=== PATIENT | female | born 1950 | race Caucasian/White ===

== ENCOUNTER → 2016-10-19 | Outpatient (CLI) | payer MEDICARE, OTHER | LOC: RAD 10:41 | PROVIDERS: ATTEND Student in an Organized Health Care Education/Training Program | DX: M10.4 Other secondary gout (principal); M10.441 Other secondary gout, right hand ==

== ENCOUNTER 2017-01-17 08:04 | Emergency (ER) | payer MEDICARE, OTHER ==
[2017-01-17] MEDS ORDERED: NORMAL SALINE 1000 ML 1,000 ML IV ONE ×3 (08:42→13:44)
[2017-01-17] MEDS ORDERED: PANTOPRAZOLE SODIUM 40 MG VIAL IV ONE ×2 (08:43→09:51)
[2017-01-17 09:32] LABS: HEMOGLOBIN 10.5 g/dL (12.0-15.5); HGB HCT DIFFERENCE -1.5; MEAN CORPUSCULAR HEMOGLOBIN 29.7 pg (27.0-33.4); MEAN CORPUSCULAR HGB CONC 31.8 g/dL (32.0-36.0); MEAN CORPUSCULAR VOLUME 94 fl (80-97); RED BLOOD COUNT 3.53 10^6/uL (3.72-5.28); RED CELL DISTRIBUTION WIDTH 15.9 % (11.5-14.0); WHITE BLOOD COUNT 23.9 10^3/uL (4.0-10.5)
[2017-01-17 09:35] LABS: PROTHROMBIN TIME 13.5 SEC (11.4-15.4)
[2017-01-17 09:36] LABS: PARTIAL THROMBOPLASTIN TIME 27.5 SEC (23.5-35.8)
[2017-01-17 09:47] LABS: ALANINE AMINOTRANSFERASE 21 U/L (9-52); ALKALINE PHOSPHATASE 38 U/L (38-126); ANION GAP 15 (5-19); ASPARTATE AMINO TRANSFERASE 16 U/L (14-36); BILIRUBIN,DIRECT 0.4 mg/dL (0.0-0.4); BILIRUBIN,TOTAL 0.5 mg/dL (0.2-1.3); BLOOD UREA NITROGEN 86 mg/dL (7-20); CALCIUM 9.4 mg/dL (8.4-10.2); CARBON DIOXIDE 20 mmol/L (22-30); CHLORIDE 110 mmol/L (98-107); CREATININE RESULT 1.32 mg/dL (0.52-1.25); GLUCOSE 101 mg/dL (75-110); POTASSIUM 4.8 mmol/L (3.6-5.0); SODIUM 145.1 mmol/L (137-145); TOTAL PROTEIN 7.5 g/dL (6.3-8.2)
[2017-01-17 10:04] LABS: BAND NEUTROPHILS % (MANUAL) 1 % (3-5); BASOPHILS % (MANUAL) 0 % (0-2); EOSINOPHILS % (MANUAL) 0 % (0-6); LYMPHOCYTES % (MANUAL) 8 % (13-45); TOTAL CELLS COUNTED 100
[2017-01-17 10:05] LABS: ANISOCYTOSIS SLIGHT; TOXIC GRANULATION SLIGHT; TOXIC VACUOLATION PRESENT
[2017-01-17] MEDS ORDERED: ERTAPENEM SODIUM INJ 1 GM VIAL IV ONE (10:20)
--- NOTE | 2017-01-17 11:24 | RADIOLOGY REPORT (SQ) ---
EXAM DESCRIPTION: CT ABD/PELVIS WITH IV ONLY COMPLETED DATE/TIME: 01/17/2017 11:09 am REASON FOR STUDY: gi bleed COMPARISON: None. TECHNIQUE: CT scan of the abdomen and pelvis performed using helical scanning technique with dynamic intravenous contrast injection. No oral contrast. Images reviewed with lung, soft tissue, and bone windows. Reconstructed coronal and sagittal MPR images reviewed. Delayed images for evaluation of the urinary system also acquired. All images stored on PACS. All CT scanners at this facility use dose modulation, iterative reconstruction, and/or weight based d osing when appropriate to reduce radiation dose to as low as reasonably achievable (ALARA). [facility]: Dose Right [facility]: CareDose [facility]: Dose Right [facility]: Teradose 4D [facility]: in2apps CONTRAST TYPE AND DOSE: contrast/concentration: Isovue 370.00 mg/ml; Total Contrast Delivered: 100.0 ml; Total Saline Delivered: 72.0 ml RENAL FUNCTION: Creatinine 1.3 RADIATION DOSE: Up-to-date CT equipment and radiation dose reduction techniques were employed. CTDIv ol: 18.7 - 20.2 mGy. DLP: 2225 mGy-cm.. LIMITATIONS: None. FINDINGS: LOWER CHEST: No significant findings. No nodules or infiltrates. LIVER: Probable tiny subcentimeter cysts. No worrisome lesion. SPLEEN: Normal size. No focal lesions. PANCREAS: No masses. No significant calcifications. No adjacent inflammation or peripancreatic fluid collections. Pancreatic duct not dilated. GALLBLADDER: No identified stones by CT criteria. No inflammatory changes to suggest cholecystitis. ADRENAL GLANDS: No significant masses or asymmetry. RIGHT KIDNEY AND URETER: No solid masses. No significant calcification. No hydronephrosis or hydroure ter. LEFT KIDNEY AND URETER: No solid masses. No significant calcification. No hydronephrosis or hydrouret er. AORTA AND VESSELS: Atherosclerotic without aneurysm. No gross arterial occlusion or venous clot evid ent. RETROPERITONEUM: No retroperitoneal adenopathy, hemorrhage or masses. BOWEL AND PERITONEAL CAVITY: Minimal diverticulosis without active diverticulitis. No dilated loops or abnormal bowel wall thickening. No gross suggestion of active extravasated in contrast into bowel lumen as assessed. APPENDIX: Normal. PELVIS: No mass or free fluid. Normal bladder. ABDOMINAL WALL: No masses. No hernias. BONES: No significant or acute findings. OTHER: No other significant finding. IMPRESSION: 1. No acute or suspicious abdominopelvic abnormality. TECHNICAL DOCUMENTATION: JOB ID: [id number] Quality ID # [id number]: Final reports with documentation of one or more dose reduction techniques (e.g., Au tomated exposure control, adjustment of the mA and/or kV according to patient size, use of iterative reconstruction technique) 2010 [employer]- All Rights Reserved
--- NOTE | 2017-01-17 12:44 | ER Document Report ---
ED General - General Chief Complaint: Black/Tarry Stools Stated Complaint: DARK STOOLS Time Seen by Provider: 01/17/17 08:42 TRAVEL OUTSIDE OF THE [place] IN LAST 30 DAYS: No - HPI Patient complains to provider of: Black stool Notes: Patient coming in for evaluation of black stool. Patient has no history of GI bleed states 3 stools throughout the night that were all black. Patient denies any fevers chills nausea vomiting weakness dizziness patient able ambulate without difficulty. Patient is on medication for her chronic arthralgias hip pain. Denies any alcohol abuse denies any history of GI pathology in the past. - Related Data Allergies/Adverse Reactions: Tetanus Vaccines and Toxoid Allergy (Unknown, Verified 01/17/17 10:29) Penicillins Allergy (Verified 01/17/17 10:28) Past Medical History - Social History Smoking Status: Unknown if Ever Smoked Family History: Reviewed & Not Pertinent Patient has suicidal ideation: No Patient has homicidal ideation: No - Past Medical History Cardiac Medical History: Reports: Hx Hypercholesterolemia, Hx Hypertension Renal/ Medical History: Denies: Hx Peritoneal Dialysis Malignancy Medical History: Reports: Hx Skin Cancer Musculoskeltal Medical History: Reports Hx Musculoskeletal Trauma Past Surgical History: Reports: Hx Orthopedic Surgery Review of Systems - Review of Systems Constitutional: No symptoms reported EENT: No symptoms reported Cardiovascular: No symptoms reported Respiratory: No symptoms reported Gastrointestinal: Black stools Genitourinary: No symptoms reported Female Genitourinary: No symptoms reported Musculoskeletal: No symptoms reported Skin: No symptoms reported Hematologic/Lymphatic: No symptoms reported Neurological/Psychological: No symptoms reported -: Yes All other systems reviewed and negative Physical Exam - Vital signs Vitals: Temp Pulse Resp BP Pulse Ox 98.1 F 122 H 21 H 115/57 L 96 01/17/17 08:08 01/17/17 08:08 01/17/17 08:08 01/17/17 08:08 01/17/17 08:08 Interpretation: Tachycardic - General General appearance: Appears well, Alert - HEENT Head: Normocephalic, Atraumatic Eyes: Normal Pupils: PERRL - Respiratory Respiratory status: No respiratory distress Chest status: Nontender Breath sounds: Normal Chest palpation: Normal - Cardiovascular Rhythm: Regular Heart sounds: Normal auscultation Murmur: No - Abdominal Inspection: Normal Distension: No distension Bowel sounds: Normal Tenderness: Nontender Organomegaly: No organomegaly - Rectal Stool: Heme positive, Black - Slightly maroon Hemorrhoids: External - Back Back: Normal, Nontender - Extremities General upper extremity: Normal inspection, Nontender, Normal color, Normal ROM , Normal temperature General lower extremity: Normal inspection, Nontender, Normal color, Normal ROM , Normal temperature, Normal weight bearing. No: Washington's sign - Neurological Neuro grossly intact: Yes Cognition: Normal Orientation: AAOx4 Vikram Coma Scale Eye Opening: Spontaneous Vikram Coma Scale Verbal: Oriented Vikram Coma Scale Motor: Obeys Commands Brimson Coma Scale Total: 15 Speech: Normal Motor strength normal: LUE, RUE, LLE, RLE Sensory: Normal - Psychological Associated symptoms: Normal affect, Normal mood - Skin Skin Temperature: Warm Skin Moisture: Dry Skin Color: Normal Course - Re-evaluation Re-evalutation: 01/17/17 12:52 Patient lab work shows leukocytosis with left shift and bandemia. Patient abdomen is benign no tenderness but went ahead with a CT scan showing no acute abdominal pathology. Currently waiting on urinalysis patient was given a dose of antibiotics for coverage. Lactic acid is negative. Patient does have elevated BUN and creatinine. More consistent with a GI bleed. Did discuss with Dr. Bon roman. Patient was accepted in transfer due to GI bleed. 01/17/17 13:31 Patient with tachycardia still otherwise stable for transport - Vital Signs Vital signs: Temp Pulse Resp BP Pulse Ox 98.1 F 122 H 17 131/73 H 97 01/17/17 08:08 01/17/17 08:08 01/17/17 13:10 01/17/17 13:10 01/17/17 13:10 - Laboratory Result Diagrams: 01/17/17 12:10 01/17/17 09:12 Laboratory results interpreted by me: 01/17/17 01/17/17 01/17/17 09:12 09:12 12:10 WBC 23.9 H 20.4 H RBC 3.53 L 3.39 L Hgb 10.5 L 10.1 L Hct 33.0 L 31.6 L MCHC 31.8 L 31.9 L RDW 15.9 H 15.8 H Seg Neuts % (Manual) 87 H Band Neutrophils % 1 L Lymphocytes % (Manual) 8 L Abs Neuts (Manual) 21.0 H Sodium 145.1 H Chloride 110 H Carbon Dioxide 20 L BUN 86 H Creatinine 1.32 H Est GFR ( Amer) 48 L Est GFR (Non-Af Amer) 40 L Critical Care Note - Critical Care Note Total time excluding time spent on procedures (mins): 35 Comments: Multiple evaluation patient with tachycardia and GI bleed. Discharge - Discharge Clinical Impression: GI bleed Qualifiers: GI bleed type/associated pathology: unspecified gastrointestinal hemorrhage type Qualified Code(s): K92.2 - Gastrointestinal hemorrhage, unspecified Condition: Good Referrals: MAY NEWTON DO [Primary Care Provider] - Follow up as needed
[2017-01-17] MEDS ORDERED: LEVOFLOXACIN 500 MG/D5W RTU 100 ML IV ONE (13:01)
[2017-01-17 13:10] LABS: HEMATOCRIT 31.6 % (36.0-47.0); HEMOGLOBIN 10.1 g/dL (12.0-15.5); HGB HCT DIFFERENCE -1.3; MEAN CORPUSCULAR HEMOGLOBIN 29.7 pg (27.0-33.4); MEAN CORPUSCULAR HGB CONC 31.9 g/dL (32.0-36.0); MEAN CORPUSCULAR VOLUME 93 fl (80-97); RED BLOOD COUNT 3.39 10^6/uL (3.72-5.28); RED CELL DISTRIBUTION WIDTH 15.8 % (11.5-14.0); WHITE BLOOD COUNT 20.4 10^3/uL (4.0-10.5)
[2017-01-17 13:29] VITALS: BP 131/73
[2017-01-17 13:34] LABS: ANISOCYTOSIS SLIGHT; BAND NEUTROPHILS % (MANUAL) 1 % (3-5); BASOPHILS % (MANUAL) 0 % (0-2); EOSINOPHILS % (MANUAL) 0 % (0-6); HYPOCHROMASIA 1+; LYMPHOCYTES % (MANUAL) 16 % (13-45); OVALOCYTES SLIGHT; POIKILOCYTOSIS SLIGHT; POLYCHROMASIA SLIGHT; TOTAL CELLS COUNTED 100; TOXIC GRANULATION SLIGHT; TOXIC VACUOLATION PRESENT
[2017-01-17] MEDS ORDERED: DEXTROSE 5%-NORMAL SALINE 1,000 ML IV ONE (13:43)
== END 2017-01-17 13:05 | disposition short-term general hospital (02) ==
LOC: ER 08:04
DX: K92.2 Gastrointestinal hemorrhage, unspecified (principal); R00.0 Tachycardia, unspecified; D72.825 Bandemia; K64.4 Residual hemorrhoidal skin tags; I10 Essential (primary) hypertension; M25.559 Pain in unspecified hip; G89.29 Other chronic pain; Z79.899 Other long term (current) drug therapy; Z88.7 Allergy status to serum and vaccine; Z88.0 Allergy status to penicillin; Z85.828 Personal history of other malignant neoplasm of skin
CPT/HCPCS: 96376; 99291; 96361; 96374; 96375; 86900; 86901; 36415; 87040; 86850; 83605; 83690; 85025; 85610; 85730; 82272; 80053; 74177; J1956; C9113; J7030; S0164

== ENCOUNTER → 2017-12-20 | Outpatient (CLI) | payer MEDICARE, OTHER ==
--- NOTE | 2017-12-20 16:21 | XCELERA REPORT ---
[address] [address] Lower Extremity Venous Evaluation Name: ONI ELISE Age: 67 yrs Gender: Female : 1950 Patient Status: Outpatient Patient Location: Study Date: 12/20/2017 01:30 PM Procedure: Color flow and duplex imaging bilaterally of the veins of the lower extremities as well as the Common Femoral veins. Reason For Study: BLE PAIN/SWELLING Ordering Physician: NATHAN HUSAIN Performed By: Tarsha Yung Right Sided Venous Evaluation Normal vessel filling wall to wall, compression and augmentation as well as Colour flow down to the infrageniculate veins. Left Sided Venous Evaluation Normal vessel filling wall to wall, compression and augmentation as well as Colour flow down to the infrageniculate veins. Interpretation Summary No duplex evidence of DVT or obstruction in the bilateral lower extremities. : NATHAN HUSAIN > Eligio Ferraro
== END ==
LOC: SP 13:03
PROVIDERS: ATTEND Internal Medicine Medical Oncology
DX: R60.0 Localized edema (principal); M79.605 Pain in left leg; M79.604 Pain in right leg
CPT/HCPCS: 93970

== ENCOUNTER → 2017-12-21 | Outpatient (CLI) | payer MEDICARE, OTHER ==
--- NOTE | 2017-12-21 11:13 | RADIOLOGY REPORT (SQ) ---
EXAM DESCRIPTION: CT CHEST WITH COMPLETED DATE/TIME: 12/21/2017 10:29 am REASON FOR STUDY: MALIGNANT NEOPLASM OF UPPER LOBE, RIGHT BRONCHUS OR LUNG C34.11 MALIGNANT NEOPLAS M OF UPPER LOBE, RIGHT BRONCHUS OR L COMPARISON: None. TECHNIQUE: CT scan of the chest performed using helical scanning technique with dynamic intravenous contrast injection. Images reviewed with lung, soft tissue and bone windows. Reconstructed coronal and sagittal MPR images reviewed. All images stored on PACS. All CT scanners at this facility use dose modulation, iterative reconstruction, and/or weight based d osing when appropriate to reduce radiation dose to as low as reasonably achievable (ALARA). [facility]: Dose Right [facility]: CareDose [facility]: Dose Right [facility]: Teradose 4D [facility]: [employer] CONTRAST TYPE AND DOSE: 96 mL Isovue 370- low osmolar. RENAL FUNCTION: Creatinine 1 RADIATION DOSE: CT Rad equipment meets quality standard of care and radiation dose reduction techniq ues were employed. CTDIvol: 10.3 - 16.5 mGy. DLP: 2162 mGy-cm. . LIMITATIONS: None. FINDINGS: LUNGS AND PLEURA: Centrilobular emphysematous changes more prominent on the right. Small right pleural effusion. Mild focal pleural/ parenchymal scarring in the right lower lobe laterally. HILAR AND MEDIASTINAL STRUCTURES: No identified masses or abnormal nodes. HEART AND VASCULAR STRUCTURES: No aneurysm or dissection. No central pulmonary emboli. No pericardi al effusion. HARDWARE: None in the chest. UPPER ABDOMEN: See separate report of the CT of the abdomen. THYROID AND OTHER SOFT TISSUES: No masses. No adenopathy. BONES: No significant finding. OTHER: No other significant finding. IMPRESSION: Centrilobular emphysema in the upper lobes. Small right pleural effusion. Pleural/pare nchymal scarring in the right lower lobe laterally. TECHNICAL DOCUMENTATION: JOB ID: [id number] Quality ID # [id number]: Final reports with documentation of one or more dose reduction techniques (e.g., Au tomated exposure control, adjustment of the mA and/or kV according to patient size, use of iterative reconstruction technique) 2010 [employer]- All Rights Reserved Reading location - IP/workstation name: [email or web address]
--- NOTE | 2017-12-21 11:23 | RADIOLOGY REPORT (SQ) ---
EXAM DESCRIPTION: CT ABD/PELVIS WITH IV ORAL COMPLETED DATE/TIME: 12/21/2017 10:29 am REASON FOR STUDY: MALIGNANT NEOPLASM OF UPPER LOBE, RIGHT BRONCHUS OR LUNG C34.11 MALIGNANT NEOPLAS M OF UPPER LOBE, RIGHT BRONCHUS OR L COMPARISON: 01/17/2017 TECHNIQUE: CT scan of the abdomen and pelvis performed using helical scanning technique with dynamic intravenous contrast injection. No oral contrast. Images reviewed with lung, soft tissue, and bone windows. Reconstructed coronal and sagittal MPR images reviewed. Delayed images for evaluation of the urinary system also acquired. All images stored on PACS. All CT scanners at this facility use dose modulation, iterative reconstruction, and/or weight based d osing when appropriate to reduce radiation dose to as low as reasonably achievable (ALARA). [facility]: Dose Right [facility]: CareDose [facility]: Dose Right [facility]: Teradose 4D [facility]: [employer] CONTRAST TYPE AND DOSE: contrast/concentration: Isovue 370.00 mg/ml; Total Contrast Delivered: 96.0 ml; Total Saline Delivered: 71.0 ml RENAL FUNCTION: Creatinine 1 RADIATION DOSE: . LIMITATIONS: None. FINDINGS: LOWER CHEST: See separate report of the CT of the chest. LIVER: A small cyst is present in the right lobe of the liver. The liver is otherwise homogeneous. No masses. SPLEEN: Normal size. No focal lesions. PANCREAS: No masses. No significant calcifications. No adjacent inflammation or peripancreatic fluid collections. Pancreatic duct not dilated. GALLBLADDER: No identified stones by CT criteria. No inflammatory changes to suggest cholecystitis. ADRENAL GLANDS: No significant masses or asymmetry. RIGHT KIDNEY AND URETER: No solid masses. No significant calcifications. No hydronephrosis or hyd roureter. LEFT KIDNEY AND URETER: No solid masses. No significant calcifications. No hydronephrosis or hydr oureter. AORTA AND VESSELS: No aneurysm. Atherosclerosis. This includes atherosclerotic changes in the super ior mesenteric artery and proximal renal arteries, left more than right. RETROPERITONEUM: No retroperitoneal adenopathy, hemorrhage or masses. BOWEL AND PERITONEAL CAVITY: Mild sigmoid diverticulosis. No acute inflammatory changes. APPENDIX: Not identified. PELVIS: No mass. No free fluid. Normal bladder. ABDOMINAL WALL: No masses. No hernias. BONES: No significant or acute findings. OTHER: No other significant finding. IMPRESSION: Mild diverticulosis coli. Atherosclerosis. No acute imaging findings in the abdomen or pelvis. TECHNICAL DOCUMENTATION: JOB ID: [id number] Quality ID # [id number]: Final reports with documentation of one or more dose reduction techniques (e.g., Au tomated exposure control, adjustment of the mA and/or kV according to patient size, use of iterative reconstruction technique) 2010 [employer]- All Rights Reserved Reading location - IP/workstation name: [email or web address]
== END ==
LOC: RAD 09:17
PROVIDERS: ATTEND Internal Medicine Medical Oncology
DX: C34.11 Malignant neoplasm of upper lobe, right bronchus or lung (principal)
CPT/HCPCS: 71260; 74177; 82565

== ENCOUNTER 2018-01-19 12:17 | Emergency (ER) | payer MEDICARE, OTHER ==
[2018-01-19] MEDS ORDERED: OXYCODONE HCL IR 5 MG TABLET PO ONE (12:51)
--- NOTE | 2018-01-19 12:53 | ER Document Report ---
ED Medical Screen (RME) - General Chief Complaint: Hip Pain Stated Complaint: RIGHT HIP PAIN Time Seen by Provider: 01/19/18 12:46 Notes: RAPID MEDICAL EVALUATION DISCLOSURE I have seen this patient as part of a Rapid Medical Evaluation and, if applicable, placed any initially appropriate orders. The patient will be seen and fully evaluated, including a full history and physical exam, by a provider ( in Main ED or Fast Track) when a room becomes available. 68-year-old female PMH lung cancer here with complaints of right hip pain that started earlier today. She has not taken anything for the pain including her cancer pain medicines. Pain is worse with movement. Pain is improved with minimizing movement. Denies lower extremity numbness tingling weakness. She denies any traumatic injury/impact or heavy lifting. She denies any history of osteoporosis or previous pathologic fractures. EXAM Mild TTP right greater trochanter Mild TTP right gluteal musculature TRAVEL OUTSIDE OF THE [place] IN LAST 30 DAYS: No - Related Data Allergies/Adverse Reactions: Tetanus Vaccines and Toxoid Allergy (Unknown, Verified 01/17/17 10:29) Penicillins Allergy (Verified 01/17/17 10:28) Past Medical History - Past Medical History Cardiac Medical History: Reports: Hx Hypercholesterolemia, Hx Hypertension Renal/ Medical History: Denies: Hx Peritoneal Dialysis Malignancy Medical History: Reports: Hx Skin Cancer Musculoskeltal Medical History: Reports Hx Musculoskeletal Trauma Past Surgical History: Reports: Hx Orthopedic Surgery Physical Exam - Vital signs Vitals: Temp Pulse Resp BP Pulse Ox 98.1 F 98 16 110/56 L 93 01/19/18 12:01/19/18 12:01/19/18 12:01/19/18 12:01/19/18 12:26 Course - Vital Signs Vital signs: Temp Pulse Resp BP Pulse Ox 98.1 F 98 16 110/56 L 93 01/19/18 12:26 01/19/18 12:01/19/18 12:01/19/18 12:01/19/18 12:26 Doctor's Discharge - Discharge Referrals: NATHAN HUSAIN MD [Primary Care Provider] - Follow up as needed
--- NOTE | 2018-01-19 13:55 | RADIOLOGY REPORT (SQ) ---
EXAM DESCRIPTION: HIP RIGHT AP/LATERAL COMPLETED DATE/TIME: 01/19/2018 1:18 pm REASON FOR STUDY: h/o cancer; R hip pain COMPARISON: None. NUMBER OF VIEWS: Two views. TECHNIQUE: AP pelvis and additional frog-leg view of the right hip. LIMITATIONS: None. FINDINGS: MINERALIZATION: Normal. RIGHT HIP: Mild joint space narrowing. Small marginal osteophyte on the femoral head on the frog-leg view. LEFT HIP: No fracture or dislocation. No worrisome bone lesions. PUBIS AND ISCHIUM: No fracture. PELVIS: There is irregular mineralization of the anterior superior iliac spine on the right. SACRUM: No fracture or dislocation. No worrisome bone lesions. LOWER LUMBAR SPINE: Lumbar degenerative disc disease and facet arthropathy. Spondylosis. SOFT TISSUES: No findings. OTHER: No other significant finding. IMPRESSION: 1. Mild degenerative joint changes in the right hip. No acute abnormality. 2. Lower lumbar degenerative changes. 3. Irregular mineralization of the anterior superior iliac spine on the right. Consider [facility] bone scan to determine whether this is metabolically active and whether this could represent me tastatic disease. TECHNICAL DOCUMENTATION: JOB ID: [id number] [employer]- All Rights Reserved Reading location - IP/workstation name: [email or web address]
[2018-01-19] MEDS ORDERED: MORPHINE SULFATE 10 MG/ML INJ IM ONE (14:10)
--- NOTE | 2018-01-19 14:27 | ER Document Report ---
ED General - General Chief Complaint: Hip Pain Stated Complaint: RIGHT HIP PAIN Time Seen by Provider: 01/19/18 12:46 Mode of Arrival: Ambulatory Information source: Patient, Relative Notes: 68-year-old female with active lung cancer, hypertension, hyperlipidemia presents with complaint of right hip pain that started 1 week prior to arrival. Patient's pain is described as constant, throbbing but without radiation. She denies any injury, fall. She is currently undergoing chemotherapy with Dr. Husain. Patient denies any saddle anesthesia, urinary retention, fecal incontinence, fever, chills. She is on chronic pain medication and states that this is not helping her pain. TRAVEL OUTSIDE OF THE [place] IN LAST 30 DAYS: No - HPI Onset: Last week Onset/Duration: Gradual, Persistent, Worse Quality of pain: Achy, Throbbing Severity: Moderate Pain Level: 2 Associated symptoms: Body/muscle aches. denies: Chest pain, Fever, Nausea, Vomiting, Shortness of breath Exacerbated by: Movement, Walking Relieved by: Remaining still Similar symptoms previously: No Recently seen / treated by doctor: Yes - Related Data Allergies/Adverse Reactions: Tetanus Vaccines and Toxoid Allergy (Unknown, Verified 01/17/17 10:29) Penicillins Allergy (Verified 01/17/17 10:28) Past Medical History - General Information source: Patient - Social History Smoking Status: Former Smoker Chew tobacco use (# tins/day): No Frequency of alcohol use: None Drug Abuse: None Lives with: Spouse/Significant other Family History: Reviewed & Not Pertinent Patient has suicidal ideation: No Patient has homicidal ideation: No - Past Medical History Cardiac Medical History: Reports: Hx Hypercholesterolemia, Hx Hypertension Renal/ Medical History: Denies: Hx Peritoneal Dialysis Malignancy Medical History: Reports: Hx Skin Cancer Musculoskeltal Medical History: Reports Hx Musculoskeletal Trauma Past Surgical History: Reports: Hx Orthopedic Surgery Review of Systems - Review of Systems Notes: REVIEW OF SYSTEMS: CONSTITUTIONAL : Denies fever, chills, or sweats. Denies recent illness. Denies weight loss, recent hospitalizations. EENT: Denies visual changes, eye pain. Denies nasal or sinus congestion or discharge. Denies sore throat, oral lesions, difficulty swallowing. CARDIOVASCULAR: Denies chest pain. Denies palpitations. Denies lower extremity edema. RESPIRATORY: Denies cough, cold, or chest congestion. Denies shortness of breath, wheezing. GASTROINTESTINAL: Denies abdominal pain or distention. Denies nausea, vomiting , or diarrhea. Denies blood in vomitus, stools, or per rectum. Denies black, tarry stools. Denies constipation. GENITOURINARY: Denies difficulty urinating, painful urination, frequency, blood in urine, or vaginal discharge. MUSCULOSKELETAL: Denies back or neck pain or stiffness. Denies joint pain or swelling. SKIN: Denies rash, lesions or sores. HEMATOLOGIC : Denies easy bruising or bleeding. LYMPHATIC: Denies swollen glands. NEUROLOGICAL: Denies confusion or altered mental status. Denies passing out or loss of consciousness. Denies dizziness or lightheadedness. Denies headache. Denies weakness or paralysis. Denies problems difficulty with ambulation, slurred speech. Denies sensory loss, numbness, or tingling. Denies seizures. PSYCHIATRIC: Denies anxiety or stress. Denies depression, suicidal ideation, or homicidal ideation. Denies visual or auditory hallucinations. Physical Exam - Vital signs Vitals: Temp Pulse Resp BP Pulse Ox 98.1 F 98 16 110/56 L 93 01/19/18 12:26 01/19/18 12:26 01/19/18 12:26 01/19/18 12:26 01/19/18 12:26 - Notes Notes: PHYSICAL EXAMINATION: GENERAL: Well-appearing, well-nourished and in no acute distress. HEAD: Atraumatic, normocephalic. EYES: Pupils equal round and reactive to light, extraocular movements intact, conjunctiva are normal. ENT: Nares patent, oropharynx clear without exudates. Moist mucous membranes. NECK: Normal range of motion, supple without lymphadenopathy LUNGS: Breath sounds clear to auscultation bilaterally and equal. No wheezes rales or rhonchi. HEART: Regular rate and rhythm without murmurs ABDOMEN: Soft, nontender, nondistended abdomen. No guarding, no rebound. No masses appreciated. Female : deferred Musculoskeletal: Normal range of motion, no pitting or edema. No cyanosis. Is to palpation over the left sciatic notch, left greater trochanter. Left hip with full range of motion, no obvious deformity, DP pulse intact. NEUROLOGICAL: Cranial nerves grossly intact. Normal speech, normal gait. Normal sensory, motor exams PSYCH: Normal mood, normal affect. SKIN: Warm, Dry, normal turgor, no rashes or lesions noted. Course - Re-evaluation Re-evalutation: Hip/Pelvis X-Ray 01/19/18 12:50 IMPRESSION: 1. Mild degenerative joint changes in the right hip. No acute abnormality. 2. Lower lumbar degenerative changes. 3. Irregular mineralization of the anterior superior iliac spine on the right. Consider nuclear medicine bone scan to determine whether this is metabolically active and whether this could represent metastatic disease. Pelvis CT 01/19/18 14:10 IMPRESSION: No acute fracture 68-year-old female with active lung cancer, hypertension, hyperlipidemia presents with complaint of right hip pain that started 1 week prior to arrival. Patient's pain is described as constant, throbbing but without radiation. She denies any injury, fall. She is currently undergoing chemotherapy with Dr. Husain. Patient denies any saddle anesthesia, urinary retention, fecal incontinence, fever, chills. She is on chronic pain medication and states that this is not helping her pain. 01/19/18 14:[address] Husain's office regarding recommendations for bone scan. They are aware and will have Dr. Husain review imaging done today. 01/19/18 15:17 Patient reevaluated reports resolution of hip pain. 01/19/18 16:09 68-year-old female with active lung cancer, hypertension, hyperlipidemia presents with complaint of right hip pain that started 1 week prior to arrival. Patient's pain is described as constant, throbbing but without radiation. She denies any injury, fall. She is currently undergoing chemotherapy with Dr. Husain. Patient denies any saddle anesthesia, urinary retention, fecal incontinence, fever, chills. She is on chronic pain medication and states that this is not helping her pain. Patient was seen by myself upon arrival. Vital signs were reviewed. Patient is afebrile, normotensive and not hypoxic. Patient does not appear toxic or dehydrated. They are in no acute distress. Previous medical records and nursing notes reviewed. X-ray of the pelvis was obtained to assess for occult hip fracture and this was within normal limits. X -rays were obtained and showed a irregular mineralization which could represent metastatic disease. But no occult fracture was seen. I did discuss these findings with the Talita from Dr. Husain's office and made her aware of the recommendation for bone scan. On reevaluation patient reports a great improvement of her hip pain. She will follow-up with Dr. Husain on Monday as already scheduled. Patient provided the opportunity to ask questions, and express concerns. Discharge instructions discussed. Patient is agreeable with discharge home. Return indications explained and discussed with the patient who displays understanding. Patient encouraged to return to the emergency department immediately with any concerns. 01/19/18 16:09 - Vital Signs Vital signs: Temp Pulse Resp BP Pulse Ox 97.5 F 92 18 137/61 H 94 01/19/18 15:34 01/19/18 15:34 01/19/18 15:34 01/19/18 15:34 01/19/18 15:34 - Diagnostic Test Radiology reviewed: Image reviewed, Reports reviewed Discharge - Discharge Clinical Impression: Right hip pain Condition: Good Disposition: HOME, SELF-CARE Instructions: Muscle Strain ([facility]), Osteoarthritis ([facility]) Additional Instructions: Please follow-up with Dr. Husain as scheduled on Monday, January 22. Please return to the emergency department with any worsening pain. Follow up with your physician tomorrow for further care or return to the ED IMMEDIATELY if symptoms worsen or new concerns occur. If you cannot afford to follow up with your primary care physician a list of low cost clinics have been provided at the end of your discharge papers as well. Referrals: NATHAN HUSAIN MD [ACTIVE STAFF] - Follow up as needed
--- NOTE | 2018-01-19 15:06 | RADIOLOGY REPORT (SQ) ---
EXAM DESCRIPTION: CT PELVIS WITHOUT COMPLETED DATE/TIME: 01/19/2018 2:51 pm REASON FOR STUDY: left hip pain concern for occult fx COMPARISON: CT chest 12/21/2017, 01/17/2017 Right hip films 01/19/2018 TECHNIQUE: CT scan of the pelvis performed without intravenous or oral contrast. Images reviewed wi th soft tissue and bone windows. Reconstructed coronal and sagittal MPR images reviewed. All images stored on PACS. All CT scanners at this facility use dose modulation, iterative reconstruction, and/or weight based d osing when appropriate to reduce radiation dose to as low as reasonably achievable (ALARA). [facility]: Dose Right [facility]: CareDose [facility]: Dose Right [facility]: Teradose 4D [facility]: [employer] RADIATION DOSE: CT Rad equipment meets quality standard of care and radiation dose reduction techniq ues were employed. CTDIvol: 28.6 mGy. DLP: 932 mGy-cm. mGy. LIMITATIONS: None. FINDINGS: PELVIC BONES: No acute fracture. No worrisome bone lesions. VISUALIZED SPINE: No acute findings. Advanced bilateral facet arthropathy at L4-5 and L5-S1. HIPS: No acute fracture or dislocation. No worrisome bone lesions. PELVIC SOFT TISSUES: No significant findings. No masses. No free fluid. Normal size postmenopausal female pelvic organs. Appendix unremarkable. EXTRAPELVIC SOFT TISSUES: No significant findings. OTHER: No other significant finding. IMPRESSION: No acute fracture TECHNICAL DOCUMENTATION: JOB ID: [id number] Quality ID # [id number]: Final reports with documentation of one or more dose reduction techniques (e.g., Au tomated exposure control, adjustment of the mA and/or kV according to patient size, use of iterative reconstruction technique) 2010 [employer]- All Rights Reserved Reading location - IP/workstation name: [email or web address]
[2018-01-19 15:39] VITALS: BP 137/61
== END 2018-01-19 15:39 | disposition home or self-care (01) ==
LOC: ER 12:17
DX: M25.551 Pain in right hip (principal); M47.9 Spondylosis, unspecified; R93.7 Abnormal findings on diagnostic imaging of other parts of musculoskeletal system; C34.90 Malignant neoplasm of unspecified part of unspecified bronchus or lung; I10 Essential (primary) hypertension; Z79.899 Other long term (current) drug therapy; Z85.828 Personal history of other malignant neoplasm of skin; Z88.7 Allergy status to serum and vaccine; Z88.0 Allergy status to penicillin
CPT/HCPCS: 99284; 96372; 73502; 72192; J2270; A9270

== ENCOUNTER → 2018-01-29 | Outpatient (CLI) | payer MEDICARE, OTHER ==
--- NOTE | 2018-01-29 13:11 | RADIOLOGY REPORT (SQ) ---
EXAM DESCRIPTION: MRI HEAD COMBO COMPLETED DATE/TIME: 01/29/2018 11:47 am REASON FOR STUDY: DISORIENTATION, UNSPECIFIED R41.0 DISORIENTATION, UNSPECIFIED COMPARISON: MRI of the brain dated July 2009 TECHNIQUE: Multiplanar imaging includes noncontrasted T1, T2, FLAIR, Diffusion with ADC map and post gadolinium contrast T1 sequences. Images stored on PACS. CONTRAST TYPE AND DOSE: 15 mL ProHance RENAL FUNCTION: GFR greater than 40 LIMITATIONS: None. FINDINGS: ANATOMY: No anomalies. Normal vascular flow voids. Pituitary fossa normal. CSF SPACES: Atrophy-induced prominence of CSF spaces and ventricles. CEREBRUM: High-signal intensity lesions scattered throughout the white matter on FLAIR imaging with d istribution suggesting chronic micro-vascular ischemic change. No evidence of hemorrhage, mass, extra axial fluid collection or acute ischemic change. No enhancing lesions. The previously described foca l encephalomalacia in the left frontal lobe appears stable. POSTERIOR FOSSA: No signal alteration. No hemorrhage. No edema, masses, or mass effect. Internal ivan tory canals, cerebello-pontine angles, mastoids normal. No enhancing lesions. ORBITS: No masses. Globes normal. PARANASAL SINUSES: No fluid levels. Mucosa normal. DIFFUSION: Normal. No evidence of recent infarct. OTHER: No other significant finding. IMPRESSION: ATROPHY AND CHRONIC MICRO-VASCULAR ISCHEMIC CHANGES. Focal encephalomalacia in the left frontal lobe unchanged from the previous study. OTHERWISE UNREMARKABLE MRI OF THE BRAIN WITHOUT AND WITH INTRAVENOUS GADOLINIUM CONTRAST. EVIDENCE OF ACUTE STROKE: NO. TECHNICAL DOCUMENTATION: JOB ID: [id number] [employer]- All Rights Reserved Reading location - IP/workstation name: [email or web address]
== END ==
LOC: RAD 10:38
PROVIDERS: ATTEND Internal Medicine Medical Oncology
DX: R41.0 Disorientation, unspecified (principal)
CPT/HCPCS: 70553; A9576

== ENCOUNTER 2018-02-01 13:20 | Emergency (ER) | payer MEDICARE, OTHER ==
--- NOTE | 2018-02-01 13:42 | ER Document Report ---
ED Medical Screen (RME) - General Chief Complaint: Abnormal Lab Results Stated Complaint: ABNORMAL RESULTS Time Seen by Provider: 02/01/18 13:36 Notes: RAPID MEDICAL EVALUATION DISCLOSURE I have seen this patient as part of a Rapid Medical Evaluation and, if applicable, placed any initially appropriate orders. The patient will be seen and fully evaluated, including a full history and physical exam, by a provider ( in Main ED or Fast Track) when a room becomes available. 68-year-old female PMH lung cancer sent by oncologist for low hemoglobin. The patient states she has been feeling weak and tired and intermittently lightheaded but denies chest pain shortness of breath. She does not have any bloody stools urine gums. Her last chemotherapy was 2 weeks ago. She has never needed a blood transfusion in the past nor has she ever had a low hemoglobin. EXAM CTAB RRR TRAVEL OUTSIDE OF THE [place] IN LAST 30 DAYS: No - Related Data Allergies/Adverse Reactions: Tetanus Vaccines and Toxoid Allergy (Unknown, Verified 02/01/18 13:22) Penicillins Allergy (Verified 02/01/18 13:22) Past Medical History - Past Medical History Cardiac Medical History: Reports: Hx Hypercholesterolemia, Hx Hypertension Renal/ Medical History: Denies: Hx Peritoneal Dialysis Malignancy Medical History: Reports: Hx Skin Cancer Musculoskeltal Medical History: Reports Hx Musculoskeletal Trauma Past Surgical History: Reports: Hx Orthopedic Surgery Physical Exam - Vital signs Vitals: Temp Pulse Resp BP Pulse Ox 98.4 F 87 16 108/54 L 99 02/01/18 13:28 02/01/18 13:28 02/01/18 13:28 02/01/18 13:28 02/01/18 13:28 Course - Vital Signs Vital signs: Temp Pulse Resp BP Pulse Ox 98.4 F 87 16 108/54 L 99 02/01/18 13:28 02/01/18 13:28 02/01/18 13:28 02/01/18 13:28 02/01/18 13:28 Doctor's Discharge - Discharge Referrals: NATHAN HUSAIN MD [Primary Care Provider] - Follow up as needed
[2018-02-01 15:31] LABS: ABSOLUTE LYMPHOCYTES (AUTO) 0.8 10^3/uL (0.5-4.7); BASOPHILS % (AUTO) 0.3 % (0-2); EOSINOPHILS % (AUTO) 0.2 % (0-6); HEMATOCRIT 26.5 % (36.0-47.0); HEMOGLOBIN 8.9 g/dL (12.0-15.5); LYMPHOCYTES % (AUTO) 6.6 % (13-45); MEAN CORPUSCULAR HEMOGLOBIN 33.5 pg (27.0-33.4); MEAN CORPUSCULAR HGB CONC 33.4 g/dL (32.0-36.0); MEAN CORPUSCULAR VOLUME 100 fl (80-97); MONOCYTES % (AUTO) 8.6 % (3-13); PLATELET COUNT 104 10^3/uL (150-450); RED BLOOD COUNT 2.65 10^6/uL (3.72-5.28); RED CELL DISTRIBUTION WIDTH 18.8 % (11.5-14.0); SEGMENTED NEUTROPHILS % (AUTO) 84.3 % (42-78); TOTAL CELLS COUNTED % (AUTO) 100 %; WHITE BLOOD COUNT 11.8 10^3/uL (4.0-10.5)
[2018-02-01 15:36] LABS: INTERNATIONAL RATION (INR) 1.02; PROTHROMBIN TIME 13.9 SEC (11.4-15.4)
[2018-02-01 15:37] LABS: PARTIAL THROMBOPLASTIN TIME 32.8 SEC (23.5-35.8)
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
[2018-02-01 15:52] LABS: ALANINE AMINOTRANSFERASE 35 U/L (9-52); ALBUMIN 3.9 g/dL (3.5-5.0); ALKALINE PHOSPHATASE 66 U/L (38-126); ANION GAP 15 (5-19); ASPARTATE AMINO TRANSFERASE 30 U/L (14-36); BILIRUBIN,DIRECT 0.3 mg/dL (0.0-0.4); BILIRUBIN,TOTAL 0.6 mg/dL (0.2-1.3); BLOOD UREA NITROGEN 36 mg/dL (7-20); CARBON DIOXIDE 23 mmol/L (22-30); CHLORIDE 107 mmol/L (98-107); GLUCOSE 71 mg/dL (75-110); POTASSIUM 3.5 mmol/L (3.6-5.0); SODIUM 144.5 mmol/L (137-145); TOTAL PROTEIN 6.3 g/dL (6.3-8.2)
[2018-02-01 17:16] VITALS: BP 130/51
== END 2018-02-01 17:20 | disposition home or self-care (01) ==
LOC: ER 13:20
DX: D64.9 Anemia, unspecified (principal); E86.0 Dehydration; I95.9 Hypotension, unspecified; N28.9 Disorder of kidney and ureter, unspecified; R42 Dizziness and giddiness; K59.00 Constipation, unspecified; R58 Hemorrhage, not elsewhere classified; J18.9 Pneumonia, unspecified organism; I10 Essential (primary) hypertension; Z79.899 Other long term (current) drug therapy; Z88.7 Allergy status to serum and vaccine; Z88.0 Allergy status to penicillin; Z85.828 Personal history of other malignant neoplasm of skin
CPT/HCPCS: 36415; 80053; 82962; 85025; 85610; 85730; 86850; 86900; 86901; 99283

== ENCOUNTER 2018-02-12 10:37 | Outpatient (CLI) | payer MEDICARE, OTHER ==
[2018-02-12] MEDS ORDERED: NORMAL SALINE 250 ML IV PRN (12:09)
[2018-02-12] MEDS ORDERED: ACETAMINOPHEN 325 MG TABLET PO PRN (12:09)
[2018-02-12] MEDS ORDERED: FUROSEMIDE INJ/PF 20 MG/2 ML SDV IV PRN (12:10)
[2018-02-12] MEDS ORDERED: DIPHENHYDRAMINE HCL 25 MG CAPSULE PO PRN (12:10)
[2018-02-12 13:37] LABS: HEMATOCRIT 24.6 % (36.0-47.0); HEMOGLOBIN 8.3 g/dL (12.0-15.5); MEAN CORPUSCULAR HEMOGLOBIN 34.3 pg (27.0-33.4); MEAN CORPUSCULAR HGB CONC 33.6 g/dL (32.0-36.0); MEAN CORPUSCULAR VOLUME 102 fl (80-97); RED BLOOD COUNT 2.41 10^6/uL (3.72-5.28); WHITE BLOOD COUNT 4.5 10^3/uL (4.0-10.5)
[2018-02-12 14:19] LABS: PLATELET COUNT 62 10^3/uL (150-450)
[2018-02-12 18:50] VITALS: BP 126/56
[2018-02-12 20:31] LABS: HEMATOCRIT 28.9 % (36.0-47.0); HEMOGLOBIN 9.8 g/dL (12.0-15.5); MEAN CORPUSCULAR HEMOGLOBIN 32.7 pg (27.0-33.4); MEAN CORPUSCULAR HGB CONC 33.8 g/dL (32.0-36.0); RED BLOOD COUNT 2.99 10^6/uL (3.72-5.28); RED CELL DISTRIBUTION WIDTH 17.7 % (11.5-14.0); WHITE BLOOD COUNT 4.6 10^3/uL (4.0-10.5)
[2018-02-12 20:33] LABS: MEAN CORPUSCULAR VOLUME 97 fl (80-97); PLATELET COUNT 56 10^3/uL (150-450)
== END 2018-02-12 21:00 | disposition home or self-care (01) ==
LOC: II 10:37 → 2S 10:44 → II 21:00
PROVIDERS: ATTEND Internal Medicine Medical Oncology
PROC: 30233N1 Transfusion of Nonautologous Red Blood Cells into Peripheral Vein, Percutaneous Approach (ICD-10-PCS; principal; 2018-02-12)
DX: C34.11 Malignant neoplasm of upper lobe, right bronchus or lung (principal)
CPT/HCPCS: 86900; 86901; 36415; 36430; 86850; 85027; 86920; P9016; A9270 ×2; J7050

== ENCOUNTER → 2018-03-11 | Outpatient (CLI) | payer MEDICARE, OTHER ==
--- NOTE | 2018-03-12 08:53 | RADIOLOGY REPORT (SQ) ---
EXAM DESCRIPTION: PET CT SKULL/THIGH COMPLETED DATE/TIME: 03/11/2018 5:29 pm REASON FOR STUDY: RIGHT LUNG CANCER C34.11 MALIGNANT NEOPLASM OF UPPER LOBE, RIGHT BRONCHUS OR L COMPARISON: None available. Correlation with report from prior PET 09/01/2017 outside facility. RADIONUCLIDE AND DOSE: 10.2 mCi F18 FDG The route of agent administration: Intravenous FASTING BLOOD SUGAR: 101 mg/dl CONTRAST TYPE AND DOSE: No CT contrast given. TECHNIQUE: Blood glucose level was verified. Above dose of FDG was injected intravenously. 2-D seg mented attenuation correction images were obtained from the base of the skull to the midthighs. Nonc ontrast CT images were obtained for attenuation correction and fusion with emission images. CT image s were performed without oral or intravenous contrast and are not sensitive for parenchymal lesions. A series of overlapping emission PET images were obtained. Images reviewed and manipulated at [facility] work station by the radiologist. Images stored on PACS. LIMITATIONS: None. FINDINGS: HEAD AND NECK: No areas of abnormal metabolic activity in the soft tissues of the head and neck. CHEST: No areas of abnormal metabolic activity in the chest. ABDOMEN AND PELVIS: No areas of abnormal metabolic activity in the abdomen or pelvis. Expected physi ologic activity is present in the genitourinary system and bowel. PROXIMAL LOWER EXTREMITIES: No areas of abnormal metabolic activity in the soft tissues of the lower extremities. BONES: No abnormal metabolic activity in the visualized skeleton. ADDITIONAL CT FINDINGS: Pleural thickening right lower lobe. Decrease in size of right upper lobe no dule now less than 1 cm in short axis. Left-sided port tip in the SVC. OTHER: No other significant findings. IMPRESSION: Favorable response to therapy. No evidence of metastatic disease. TECHNICAL DOCUMENTATION: JOB ID: [id number]- All Rights Reserved Reading location - IP/workstation name: [email or web address]
== END ==
LOC: RAD 14:30
PROVIDERS: ATTEND Internal Medicine Medical Oncology
DX: C34.11 Malignant neoplasm of upper lobe, right bronchus or lung (principal)
CPT/HCPCS: 78815; A9552

== ENCOUNTER 2018-03-13 07:43 | Outpatient (CLI) | payer MEDICARE, OTHER ==
[~2018-03-13 07:43] MED LIST: ACETAMINOPHEN 325 MG TABLET PO PRN; DIPHENHYDRAMINE HCL 25 MG CAPSULE PO PRN; FUROSEMIDE INJ/PF 20 MG/2 ML SDV IV PRN
[2018-03-13 08:53] LABS: HEMATOCRIT 22.2 % (36.0-47.0); MEAN CORPUSCULAR HEMOGLOBIN 33.6 pg (27.0-33.4); MEAN CORPUSCULAR HGB CONC 33.4 g/dL (32.0-36.0); RED CELL DISTRIBUTION WIDTH 16.6 % (11.5-14.0)
[2018-03-13] MEDS ORDERED: NORMAL SALINE 250 ML IV PRN (08:57)
[2018-03-13 09:08] LABS: PLATELET COUNT 45 10^3/uL (150-450)
[2018-03-13 09:38] LABS: MEAN CORPUSCULAR VOLUME 101 fl (80-97)
[2018-03-13 09:42] LABS: PLATELET ESTIMATE 43 10^3/uL (150-450)
[2018-03-13 09:54] LABS: HEMOGLOBIN 7.4 g/dL (12.0-15.5)
[2018-03-13 09:57] LABS: WHITE BLOOD COUNT 0.8 10^3/uL (4.0-10.5)
[2018-03-13 14:42] LABS: HEMATOCRIT 27.4 % (36.0-47.0); HEMOGLOBIN 9.3 g/dL (12.0-15.5); MEAN CORPUSCULAR HEMOGLOBIN 32.4 pg (27.0-33.4); MEAN CORPUSCULAR HGB CONC 33.9 g/dL (32.0-36.0); RED BLOOD COUNT 2.86 10^6/uL (3.72-5.28); RED CELL DISTRIBUTION WIDTH 18.3 % (11.5-14.0)
[2018-03-13 14:55] VITALS: BP 156/63
[2018-03-13 15:27] LABS: MEAN CORPUSCULAR VOLUME 96 fl (80-97); PLATELET COUNT 41 10^3/uL (150-450); WHITE BLOOD COUNT 1.1 10^3/uL (4.0-10.5)
[2018-03-14 15:55] LABS: PATH REVIEW PATHOLOGIST REVIEWED
== END 2018-03-13 14:30 | disposition home or self-care (01) ==
LOC: II 07:43 → 5TH 09:22 → II 14:30
PROVIDERS: ATTEND Internal Medicine Medical Oncology
PROC: 30233N1 Transfusion of Nonautologous Red Blood Cells into Peripheral Vein, Percutaneous Approach (ICD-10-PCS; principal; 2018-03-13)
DX: D50.9 Iron deficiency anemia, unspecified (principal); C34.90 Malignant neoplasm of unspecified part of unspecified bronchus or lung; N18.4 Chronic kidney disease, stage 4 (severe)
CPT/HCPCS: 86900; 86901; 36415; 36430; 86850; 85027; 86920; P9016; A9270 ×2

== ENCOUNTER → 2018-03-23 | Outpatient (CLI) | payer MEDICARE, OTHER ==
[2018-03-23 11:45] LABS: POTASSIUM 3.1 mmol/L (3.6-5.0)
== END ==
LOC: LAB 10:37
PROVIDERS: ATTEND Student in an Organized Health Care Education/Training Program
DX: E87.6 Hypokalemia (principal)
CPT/HCPCS: 36415; 83735; 84100; 84132

== ENCOUNTER → 2018-05-03 | Outpatient (CLI) | payer MEDICARE, OTHER ==
--- NOTE | 2018-05-03 11:34 | RADIOLOGY REPORT (SQ) ---
EXAM DESCRIPTION: VENOUS BILATERAL LOWER COMPLETED DATE/TIME: 05/03/2018 11:25 am REASON FOR STUDY: SWELLING M79.89 OTHER SPECIFIED SOFT TISSUE DISORDERS COMPARISON: None. TECHNIQUE: Dynamic and static musa scale and color images acquired of both lower extremity venous sy stems. Selected spectral images acquired with additional compression and augmentation maneuvers. Imag es stored on PACS. LIMITATIONS: None. FINDINGS: RIGHT LEG COMMON FEMORAL AND FEMORAL: Normal phasicity, compression and augmentation. No visualized echogenic m aterial on musa scale. No defects on color images. POPLITEAL: Normal compression and augmentation. No visualized echogenic material on musa scale. No de fects on color images. CALF VESSELS: Normal compression and augmentation. No visualized echogenic material on musa scale. No defects on color image. GSV AND SSV: Normal compression. No visualized echogenic material on musa scale. No defects on color images. ANY DEEP VENOUS INSUFFICIENCY: Not evaluated. ANY EVIDENCE OF POPLITEAL CYST: No. OTHER: No other significant finding. LEFT LEG COMMON FEMORAL AND FEMORAL: Normal phasicity, compression and augmentation. No visualized echogenic m aterial on musa scale. No defects on color images. POPLITEAL: Normal compression and augmentation. No visualized echogenic material on musa scale. No de fects on color images. CALF VESSELS: Normal compression and augmentation. No visualized echogenic material on musa scale. No defects on color images. GSV AND SSV: Normal compression. No visualized echogenic material on musa scale. No defects on color images. ANY DEEP VENOUS INSUFFICIENCY: Not evaluated. ANY EVIDENCE POPLITEAL CYST: No. OTHER: No other significant finding. IMPRESSION: NO EVIDENCE DVT OR SVT IN EITHER LEG. TECHNICAL DOCUMENTATION: JOB ID: [id number] [employer]- All Rights Reserved Reading location - IP/workstation name: [email or web address]
== END ==
LOC: SP 11:00
PROVIDERS: ATTEND Internal Medicine Medical Oncology
DX: M79.89 Other specified soft tissue disorders (principal)
CPT/HCPCS: 93970

== ENCOUNTER → 2018-05-21 | Outpatient (CLI) | payer MEDICARE, OTHER ==
--- NOTE | 2018-05-21 13:25 | RADIOLOGY REPORT (SQ) ---
EXAM DESCRIPTION: CHEST PA/LATERAL COMPLETED DATE/TIME: 05/21/2018 1:07 pm REASON FOR STUDY: MALIGNANT NEOPLASM OF UPPER LOBE, RIGHT BRONCHUS OR LUNG COMPARISON: None. EXAM PARAMETERS: NUMBER OF VIEWS: two views TECHNIQUE: Digital Frontal and Lateral radiographic views of the chest acquired. RADIATION DOSE: NA LIMITATIONS: none FINDINGS: LUNGS AND PLEURA: No opacities, masses or pneumothorax. No pleural effusion. MEDIASTINUM AND HILAR STRUCTURES: No masses or contour abnormalities. HEART AND VASCULAR STRUCTURES: Heart normal size. No evidence for failure. BONES: No acute findings. HARDWARE: Vascular port. OTHER: No other significant finding. IMPRESSION: NO SIGNIFICANT RADIOGRAPHIC FINDING IN THE CHEST. TECHNICAL DOCUMENTATION: JOB ID: [id number] [employer]- All Rights Reserved Reading location - IP/workstation name: [email or web address]
== END ==
LOC: OD 12:52
PROVIDERS: ATTEND Internal Medicine Medical Oncology
DX: C34.11 Malignant neoplasm of upper lobe, right bronchus or lung (principal)
CPT/HCPCS: 71046

== ENCOUNTER → 2018-06-01 | Outpatient (CLI) | payer MEDICARE, OTHER ==
--- NOTE | 2018-06-01 12:19 | RADIOLOGY REPORT (SQ) ---
EXAM DESCRIPTION: NM WHOLE BODY BONE SCAN COMPLETED DATE/TIME: 06/01/2018 11:49 am REASON FOR STUDY: LUNG CA (C34.11) C34.11 MALIGNANT NEOPLASM OF UPPER LOBE, RIGHT BRONCHUS OR L COMPARISON: PET-CT 03/11/2018 RADIONUCLIDE AND DOSE: 2.2 millicuries Tc99m MDP. The route of agent administration: Intravenous. ADDITIONAL DRUGS AND DOSES: None. TECHNIQUE: Routine delayed images at 3 hours post radionuclide injection acquired of the bony skelet on including anterior and posterior whole-body projections and additional focused images as needed. LIMITATIONS: None. FINDINGS: BONES: No skeletal uptake worrisome for metastatic disease. Minimal increased uptake over the lower lumbar spine, bilateral shoulders, and left foot and ankle in characteristic locations for osteoarthritis KIDNEYS: Symmetric excretion without obstruction. OTHER: No other significant finding. IMPRESSION: No bone scan evidence of skeletal metastatic disease COMMENT: Quality measure 147: Current bone scan is compared with any available plain radiographs, p rior bone scans, and CT/MRI. TECHNICAL DOCUMENTATION: JOB ID: [id number] [employer]- All Rights Reserved Reading location - IP/workstation name: [email or web address]
== END ==
LOC: RAD 07:41
PROVIDERS: ATTEND Internal Medicine Medical Oncology
DX: C34.11 Malignant neoplasm of upper lobe, right bronchus or lung (principal)
CPT/HCPCS: 78306; A9561

== ENCOUNTER 2018-06-21 21:44 | Emergency (ER) | payer MEDICARE, OTHER ==
[2018-06-21] MEDS ORDERED: LIDOCAINE 4% TRANSPARENT DRESSING 5 GM KIT TP ONE (22:26)
--- NOTE | 2018-06-21 22:32 | ER Document Report ---
ED General - General Chief Complaint: Diarrhea Stated Complaint: DIARRHEA Time Seen by Provider: 06/21/18 22:11 Notes: Patient is a 68-year-old female who presents with complaint of diarrhea. Diarrhea started this morning. She says she had one episode of black diarrhea. She does admit to drinking some Coca-Cola and coffee before the episode of black diarrhea. Since then her diarrhea has been brown. She does have stage IV lung cancer. She is followed by Dr. Husain. She denies any fevers. No abdominal pain. No nausea or vomiting. Last chemotherapy was 10 days ago. She is due for chemotherapy again on this coming Monday. No other complaints at this time. She has had a previous colonoscopy. This was a few years ago. No polyps or concerning lesions in the colon at that time. No history of GI bleeding. TRAVEL OUTSIDE OF THE [place] IN LAST 30 DAYS: No - Related Data Allergies/Adverse Reactions: Tetanus Vaccines and Toxoid Allergy (Unknown, Verified 02/01/18 13:22) Penicillins Allergy (Verified 02/01/18 13:22) Past Medical History - Social History Smoking Status: Former Smoker Frequency of alcohol use: None Drug Abuse: None Family History: Reviewed & Not Pertinent - Past Medical History Cardiac Medical History: Reports: Hx Hypercholesterolemia, Hx Hypertension Denies: Hx Congestive Heart Failure, Hx Heart Attack Pulmonary Medical History: Reports: Hx Bronchitis Denies: Hx Asthma, Hx COPD, Hx Pneumonia, Hx Tuberculosis Neurological Medical History: Denies: Hx Seizures Renal/ Medical History: Denies: Hx End Stage Renal Disease, Hx Kidney Stones, Hx Peritoneal Dialysis Malignancy Medical History: Reports: Hx Skin Cancer GI Medical History: Denies: Hx Cirrhosis, Hx Gastroesophageal Reflux Disease, Hx Ulcer Musculoskeletal Medical History: Reports Hx Arthritis, Denies Hx Multiple Sclerosis, Reports Hx Musculoskeletal Trauma Psychiatric Medical History: Denies: Hx Bipolar Disorder, Hx Depression, Hx Schizophrenia Past Surgical History: Reports: Hx Orthopedic Surgery - Immunizations Hx Diphtheria, Pertussis, Tetanus Vaccination: Yes Review of Systems - Review of Systems Notes: My Normal Review Basic REVIEW OF SYSTEMS: CONSTITUTIONAL : Denies fever, chills, or sweats. Denies recent illness. RESPIRATORY: Denies cough, cold, or chest congestion. Denies shortness of breath, difficulty breathing, or wheezing. GASTROINTESTINAL: No abdominal pain. No vomiting. Some diarrhea. GENITOURINARY: Denies difficulty urinating, painful urination, burning, frequency, or blood in urine. MUSCULOSKELETAL: Denies neck or back pain or joint pain or swelling. SKIN: Denies rash or skin lesions. NEUROLOGICAL: Denies altered mental status or loss of consciousness. ALL OTHER SYSTEMS REVIEWED AND NEGATIVE. Physical Exam - Vital signs Vitals: Temp Pulse Resp BP Pulse Ox 97.5 F 94 18 116/59 L 97 06/21/18 21:54 06/21/18 21:54 06/21/18 21:54 06/21/18 21:54 06/21/18 21:54 - Notes Notes: General Appearance: Well nourished, alert, cooperative, no acute distress, no obvious discomfort. Well-appearing. Vitals: reviewed, See vital signs table. Head: no swelling or tenderness to the head Eyes: PERRL, EOMI, Conjuctiva clear Mouth: No decreasd moisture Lungs: No wheezing, No rales, No rhonci, No accessory muscle use, good air exchange bilaterally. Heart: Normal rate, Regular rythm, No murmur, no rub Abdomen: Normal BS, soft, No rigidity, No abdominal tenderness, No guarding, no rebound Exam: Brown stool. No gross blood. Extremities: strength 5/5 in all extremities, good pulses in all extremities, no swelling or tenderness in the extremities, no edema. Skin: warm, dry, appropriate color, no rash Neuro: speech clear, oriented x 3, normal affect, responds appropriately to questions. Course - Re-evaluation Re-evalutation: 06/22/18 06:[address] Husain this morning to make her aware that the patient left AMA and refused blood transfusion so that she can get back in touch with the patient. - Vital Signs Vital signs: Temp Pulse Resp BP Pulse Ox 98.3 F 98 18 169/65 H 99 06/22/18 02:24 06/22/18 02:24 06/22/18 02:24 06/22/18 02:24 06/22/18 02:24 - Laboratory Result Diagrams: 06/22/18 00:20 06/22/18 00:20 Laboratory results interpreted by me: 06/22/18 06/22/18 06/22/18 00:20 00:20 00:26 WBC 1.2 L* RBC 2.03 L Hgb 6.6 L Hct 19.2 L RDW 15.0 H Plt Count 25 L* Seg Neuts % (Manual) 28 L Lymphocytes % (Manual) 72 H Monocytes % (Manual) 0 L Abs Neuts (Manual) 0.3 L Abs Monocytes (Manual) 0.0 L BUN 46 H Creatinine 2.01 H Est GFR ( Amer) 30 L Est GFR (Non-Af Amer) 25 L Total Protein 5.9 L Albumin 3.4 L Urine Blood MODERATE H Ur Leukocyte Esterase SMALL H Discharge - Discharge Clinical Impression: Thrombocytopenia Diarrhea Qualifiers: Diarrhea type: unspecified type Qualified Code(s): R19.7 - Diarrhea, unspecified Anemia Qualifiers: Anemia type: unspecified type Qualified Code(s): D64.9 - Anemia, unspecified Condition: Stable Disposition: AGAINST MEDICAL ADVICE Additional Instructions: As discussed with you we, in conjunction with Dr. Husain, recommend receiving blood. Your hemoglobin (Red blood cells) is very low. This can cause you to become very ill, have low blood pressure, pass out, and have difficulty breathing. There is no way to determine whether or you will have a bad outcome within the next 24 hours and this is why we prefer you to stay. We respect your decision to leave and understand that you do have prior priorities. Even though you are leaving we are not upset or mad. We just want what is best for you and therefore we encourage you to come back anytime if you have any concerns or want any further treatment. Please call Dr. Husain this morning to arrange for close follow-up. Sometimes diarrhea can be related to inflammation f the bowel when you are undergoing chemo. This is typically painful. Being you have no pain I do not suspect that at this time. please have a low threshold to return to the ER if you have any pain whatsoever or have worsening diarrhea, fevers, or any blood in your stool. Referrals: NATHAN HUSAIN MD [Primary Care Provider] - 06/22/18
[2018-06-22 00:36] LABS: HEMATOCRIT 19.2 % (36.0-47.0); MEAN CORPUSCULAR HEMOGLOBIN 32.7 pg (27.0-33.4); MEAN CORPUSCULAR HGB CONC 34.6 g/dL (32.0-36.0); MEAN CORPUSCULAR VOLUME 94 fl (80-97); RED BLOOD COUNT 2.03 10^6/uL (3.72-5.28)
[2018-06-22 00:43] LABS: ALANINE AMINOTRANSFERASE 31 U/L (9-52); ALBUMIN 3.4 g/dL (3.5-5.0); ALKALINE PHOSPHATASE 46 U/L (38-126); ANION GAP 14 (5-19); ASPARTATE AMINO TRANSFERASE 30 U/L (14-36); BILIRUBIN,DIRECT 0.2 mg/dL (0.0-0.4); BILIRUBIN,TOTAL 0.7 mg/dL (0.2-1.3); BLOOD UREA NITROGEN 46 mg/dL (7-20); CALCIUM 9.3 mg/dL (8.4-10.2); CARBON DIOXIDE 22 mmol/L (22-30); CHLORIDE 107 mmol/L (98-107); GLUCOSE 87 mg/dL (75-110); NEONATAL BILIRUBIN RESULT 0.5 mg/dL (0.1-1.1); POTASSIUM 3.8 mmol/L (3.6-5.0); SODIUM 142.7 mmol/L (137-145); TOTAL PROTEIN 5.9 g/dL (6.3-8.2)
[2018-06-22 01:02] LABS: HEMOGLOBIN 6.6 g/dL (12.0-15.5)
[2018-06-22 01:16] LABS: ABSOLUTE LYMPHOCYTES# (MANUAL) 0.9 10^3/uL (0.5-4.7); ABSOLUTE NEUTROPHILS# (MANUAL) 0.3 10^3/uL (1.7-8.2); BASOPHILS % (MANUAL) 0 % (0-2); EOSINOPHILS % (MANUAL) 0 % (0-6); LYMPHOCYTES % (MANUAL) 72 % (13-45); MONOCYTES % (MANUAL) 0 % (3-13); SEGMENTED NEUTROPHILS % (MAN) 28 % (42-78); TOTAL CELLS COUNTED 50
[2018-06-22 01:17] LABS: PLATELET COMMENT DECREASED
[2018-06-22 01:18] LABS: ROULEAUX 3+
[2018-06-22 01:19] LABS: HYPOCHROMASIA 2+
[2018-06-22 01:29] LABS: PLATELET COUNT 25 10^3/uL (150-450); WHITE BLOOD COUNT 1.2 10^3/uL (4.0-10.5)
[2018-06-22 02:25] VITALS: BP 169/65
[2018-06-22 02:31] LABS: APPEARANCE,URINE SLIGHTLY-CLOUDY; BILIRUBIN,URINE NEGATIVE (NEGATIVE); COLOR,URINE YELLOW; GLUCOSE, URINE NEGATIVE (NEGATIVE); KETONES,URINE NEGATIVE (NEGATIVE); LEUKOCYTE ESTERASE,URINE SMALL (NEGATIVE); NITRITE,URINE NEGATIVE (NEGATIVE); PROTEIN,URINE NEGATIVE (NEGATIVE); URINE SPECIFIC GRAVITY 1.006; UROBILINOGEN,URINE NEGATIVE mg/dL (<2.0)
[2018-06-22 11:39] LABS: PATH REVIEW PATHOLOGIST REVIEWED
== END 2018-06-22 02:25 | disposition left against medical advice (07) ==
LOC: ER 21:44
DX: D69.6 Thrombocytopenia, unspecified (principal); R19.7 Diarrhea, unspecified; D64.9 Anemia, unspecified; E78.00 Pure hypercholesterolemia, unspecified; I10 Essential (primary) hypertension; C34.90 Malignant neoplasm of unspecified part of unspecified bronchus or lung; Z88.0 Allergy status to penicillin
CPT/HCPCS: 99284; 36415; 85025; 82272; 80053; 81001; J3490

== ENCOUNTER 2018-06-22 12:08 | Emergency (ER) | payer MEDICARE, OTHER ==
[2018-06-22] MEDS ORDERED: NORMAL SALINE 250 ML IV PRN (12:49)
[2018-06-22 13:37] LABS: ABSOLUTE LYMPHOCYTES (AUTO) 0.4 10^3/uL (0.5-4.7); ABSOLUTE MONOCYTES (AUTO) 0.2 10^3/uL (0.1-1.4); ABSOLUTE NEUT (AUTO) 0.2 10^3/uL (1.7-8.2); BASOPHILS % (AUTO) 0.8 % (0-2); EOSINOPHILS % (AUTO) 0.6 % (0-6); HEMATOCRIT 22.2 % (36.0-47.0); MEAN CORPUSCULAR HEMOGLOBIN 33.3 pg (27.0-33.4); MEAN CORPUSCULAR HGB CONC 35.9 g/dL (32.0-36.0); MEAN CORPUSCULAR VOLUME 93 fl (80-97); RED BLOOD COUNT 2.39 10^6/uL (3.72-5.28); RED CELL DISTRIBUTION WIDTH 15.2 % (11.5-14.0); SEGMENTED NEUTROPHILS % (AUTO) 25.6 % (42-78); TOTAL CELLS COUNTED % (AUTO) 100 %
[2018-06-22] MEDS ORDERED: LIDOCAINE 4% TRANSPARENT DRESSING 5 GM KIT TP ONE (13:54)
[2018-06-22 14:27] LABS: WHITE BLOOD COUNT 0.9 10^3/uL (4.0-10.5)
[2018-06-22 14:28] LABS: OVALOCYTES 2+; PLATELET COMMENT DECREASED; PLATELET COUNT 30 10^3/uL (150-450); POIKILOCYTOSIS 2+; TOXIC GRANULATION 1+; TOXIC VACUOLATION PRESENT
[2018-06-22 14:29] LABS: POLYCHROMASIA 1+; TEAR DROP CELLS SLIGHT
[2018-06-22] MEDS ORDERED: FUROSEMIDE INJ/PF 20 MG/2 ML SDV IV ONE (16:51)
[2018-06-22] MEDS ORDERED: FILGRASTIM INJ 300 MCG/1 ML VIAL SUBCUT ONE (18:12)
[2018-06-22 18:17] VITALS: BP 159/84
--- NOTE | 2018-06-22 18:22 | ER Document Report ---
ED General - General Chief Complaint: Abnormal Lab Results Stated Complaint: ABNORMAL LAB VALUES Time Seen by Provider: 06/22/18 12:49 Notes: Patient is here to get a blood transfusion. She was here in the emergency department last night for black, dark diarrhea. There was no obvious blood in the diarrhea and the patient had been drinking coffee and dark sodas. She had lab work done here and her hemoglobin was 6.6 and the plan was for her to be transfused a couple of units of blood. Patient decided to leave to go home because she was tired and it was in the wee hours of the morning. Patient's only complaint besides the diarrhea is for feeling very tired lately. She has not had any nausea or vomiting. Denies any fever. Patient has a history of stage IV cancer of the lung undergoing chemotherapy by Dr. Husain. She is receiving her chemo every other week. Her most recent infusion was 12 days ago. TRAVEL OUTSIDE OF THE [place] IN LAST 30 DAYS: No - Related Data Allergies/Adverse Reactions: Tetanus Vaccines and Toxoid Allergy (Unknown, Verified 02/01/18 13:22) Penicillins Allergy (Verified 02/01/18 13:22) Past Medical History - Social History Smoking Status: Unknown if Ever Smoked Family History: Reviewed & Not Pertinent Patient has suicidal ideation: No Patient has homicidal ideation: No - Past Medical History Cardiac Medical History: Reports: Hx Hypercholesterolemia, Hx Hypertension Pulmonary Medical History: Reports: Hx Bronchitis Malignancy Medical History: Reports: Hx Lung Cancer, Hx Skin Cancer Musculoskeletal Medical History: Reports Hx Arthritis, Reports Hx Musculoskeletal Trauma Past Surgical History: Reports: Hx Orthopedic Surgery - Immunizations Hx Diphtheria, Pertussis, Tetanus Vaccination: Yes Review of Systems - Review of Systems Notes: REVIEW OF SYSTEMS: CONSTITUTIONAL : Denies fever. Feels tired and weak. EENT: Denies eye, ear, nose or mouth or throat pain or other symptoms. CARDIOVASCULAR: Denies chest pain. RESPIRATORY: Denies cough, chest congestion, or shortness of breath. GASTROINTESTINAL: Denies abdominal pain or nausea, vomiting, but dark diarrhea. GENITOURINARY: Denies difficulty or painful urinating, urinary frequency, blood in urine. MUSCULOSKELETAL: Denies back or neck pain. Denies joint pain or swelling. SKIN: Denies rash or skin lesions. NEUROLOGICAL: Denies LOC or altered mental status. Denies headache. Denies sensory loss or motor deficits. ALL OTHER SYSTEMS REVIEWED AND NEGATIVE. Physical Exam - Vital signs Vitals: Temp Pulse Resp BP Pulse Ox 98.4 F 103 H 20 118/59 L 98 06/22/18 12:12 06/22/18 12:12 06/22/18 12:12 06/22/18 12:12 06/22/18 12:12 Interpretation: Normal, Tachycardic - Very minimal Notes: PHYSICAL EXAMINATION: GENERAL: Well-appearing, in no acute distress. Pale. HEAD: Atraumatic, normocephalic. EYES: Pupils equal round and reactive to light, extraocular movements intact. ENT: oropharynx clear without exudates. Moist mucous membranes. Pale. NECK: Normal range of motion, supple. LUNGS: Breath sounds clear and slightly more prominent on the left. HEART: Regular rate and rhythm without murmurs. ABDOMEN: Soft, nontender. No guarding or rebound. No masses. BACK: No tenderness throughout entire back. EXTREMITIES: Normal range of motion without pain. NEUROLOGICAL: Normal speech, normal gait. Normal sensory, motor, and reflex exams. Awake, alert, and oriented x3. Cranial nerves normal. PSYCH: Normal mood, normal affect. SKIN: Warm, dry, no rashes. Course - Re-evaluation Re-evalutation: 06/22/18 18:30 Patient's WBC is only 0.9 and her platelet count is quite low as well. I called Dr. Husain and she asked me to [facility] the [facility] and she will follow the patient up Monday morning at 8 AM in her office. - Vital Signs Vital signs: Temp Pulse Resp BP Pulse Ox 97.5 F 86 26 H 159/84 H 98 06/22/18 18:16 06/22/18 17:01 06/22/18 18:15 06/22/18 18:16 06/22/18 18:15 - Laboratory Result Diagrams: 06/22/18 13:05 Laboratory results interpreted by me: 06/22/18 06/22/18 13:05 13:05 WBC 0.9 L* RBC 2.39 L Hgb 8.0 L Hct 22.2 L RDW 15.2 H Plt Count 30 L* Seg Neutrophils % 25.6 L Lymphocytes % 50.0 H Monocytes % 23.0 H Absolute Neutrophils 0.2 L Absolute Lymphocytes 0.4 L Crossmatch See Detail Discharge - Discharge Clinical Impression: Anemia, Lung cancer Condition: Stable Disposition: HOME, SELF-CARE Additional Instructions: Anemia You have been found to have a significant anemia (a lower than normal amount of red blood cells). Anemia can be due to iron deficiency, vitamin deficiency, abnormal bleeding, or internal diseases. Usually, further tests are necessary to find the exact cause of the anemia. The most common cause of anemia is iron deficiency, often brought on by blood loss. This can be treated with iron supplements. If this appears to be the most likely cause, iron tablets may be prescribed even before all tests are complete. Contact the doctor at once if you note black or tarry-looking stools, bloody vomiting, shortness of breath, chest pain, or faintness. Your blood counts are low, probably secondary to your chemotherapy. You have been transfused 2 units of blood. You are also given a single dose of a diuretic to have you urinate any excess fluid in the blood units out of your body. You are also given an injection of Neupogen 300 mg which is to try to spur your bone marrow to produce more white cells and platelets. I spoke with Dr. Husain. She wants to see you in her office at 9 AM Monday FOLLOW-UP CARE: If you have been referred to a physician for follow-up care, call the physician s office for an appointment as you were instructed or within the next two days. If you experience worsening or a significant change in your symptoms, notify the physician immediately or return to the Emergency Department at any time for re-evaluation. Referrals: NATHAN HUSAIN MD [ACTIVE STAFF] - 06/25/18
== END 2018-06-22 18:50 | disposition home or self-care (01) ==
LOC: ER 12:08
DX: D64.9 Anemia, unspecified (principal); R19.7 Diarrhea, unspecified; Z85.118 Personal history of other malignant neoplasm of bronchus and lung; Z79.899 Other long term (current) drug therapy; I10 Essential (primary) hypertension
CPT/HCPCS: 36591; 99284; 96361; 96374; 96375; 86900; 86901; 36415; 36430; 86850; 85025; 86920; P9016; J1940; J1442; J3490; J7050

== ENCOUNTER 2018-07-18 10:18 | Emergency (ER) | payer MEDICARE, OTHER ==
--- NOTE | 2018-07-18 10:48 | ER Document Report ---
ED General - General Chief Complaint: Abnormal Lab Results Stated Complaint: POSSIBLE NEEDS MAGNESIUM Time Seen by Provider: 07/18/18 10:40 Mode of Arrival: Ambulatory Information source: Patient Notes: 68-year-old female with stage IV lung cancer, hyperlipidemia, hypertension, anemia presents via private vehicle after her physician's office call to let her know that her magnesium was significantly low. Patient currently denying any headache, fever, chills, nausea, vomiting, chest pain, shortness of breath, abdominal pain. Patient is currently undergoing chemotherapy. TRAVEL OUTSIDE OF THE [place] IN LAST 30 DAYS: No - HPI Onset: Other Quality of pain: No pain Severity: None Associated symptoms: None Exacerbated by: Denies Relieved by: Denies Similar symptoms previously: Yes Recently seen / treated by doctor: Yes - Related Data Allergies/Adverse Reactions: Tetanus Vaccines and Toxoid Allergy (Unknown, Verified 07/18/18 10:23) Penicillins Allergy (Verified 07/18/18 10:23) Past Medical History - General Information source: Patient, [facility] Records - Social History Smoking Status: Never Smoker Chew tobacco use (# tins/day): No Frequency of alcohol use: None Drug Abuse: None Lives with: Spouse/Significant other Family History: Reviewed & Not Pertinent Patient has suicidal ideation: No Patient has homicidal ideation: No - Past Medical History Cardiac Medical History: Reports: Hx Hypercholesterolemia, Hx Hypertension Denies: Hx Congestive Heart Failure, Hx Heart Attack Pulmonary Medical History: Reports: Hx Bronchitis Denies: Hx Asthma, Hx COPD, Hx Pneumonia, Hx Tuberculosis Neurological Medical History: Denies: Hx Seizures Renal/ Medical History: Denies: Hx End Stage Renal Disease, Hx Kidney Stones, Hx Peritoneal Dialysis Malignancy Medical History: Reports: Hx Lung Cancer, Hx Skin Cancer GI Medical History: Denies: Hx Cirrhosis, Hx Gastroesophageal Reflux Disease, Hx Ulcer Musculoskeletal Medical History: Reports Hx Arthritis, Denies Hx Multiple Sclerosis, Reports Hx Musculoskeletal Trauma Psychiatric Medical History: Denies: Hx Bipolar Disorder, Hx Depression, Hx Schizophrenia Past Surgical History: Reports: Hx Orthopedic Surgery - Immunizations Hx Diphtheria, Pertussis, Tetanus Vaccination: Yes Review of Systems - Review of Systems Notes: REVIEW OF SYSTEMS: CONSTITUTIONAL : Denies fever, chills, or sweats. Denies weight loss, recent hospitalizations. EENT: Denies visual changes, eye pain. Denies sore throat, oral lesions, difficulty swallowing. CARDIOVASCULAR: Denies chest pain. Denies palpitations. Denies lower extremity edema. RESPIRATORY: Denies cough. Denies shortness of breath, wheezing. GASTROINTESTINAL: Denies abdominal pain or distention. Denies nausea, vomiting, or diarrhea. Denies blood in vomitus, stools, or per rectum. Denies black, tarry stools. Denies constipation. GENITOURINARY: Denies difficulty urinating, painful urination, frequency, blood in urine, or vaginal discharge. MUSCULOSKELETAL: Denies back or neck pain or stiffness. Denies joint pain or swelling. SKIN: Denies rash, lesions or sores. HEMATOLOGIC : Denies easy bruising or bleeding. LYMPHATIC: Denies swollen glands. NEUROLOGICAL: Denies confusion or altered mental status. Denies loss of consciousness. Denies dizziness or lightheadedness. Denies headache. Denies weakness or paralysis. Denies problems difficulty with ambulation, slurred speech. Denies sensory loss, numbness, or tingling. Denies seizures. PSYCHIATRIC: Denies anxiety or stress. Denies depression, suicidal ideation, or homicidal ideation. Denies visual or auditory hallucinations. Physical Exam - Vital signs Vitals: Temp Pulse Resp BP 98.5 F 95 16 204/88 H 07/18/18 10:28 07/18/18 10:28 07/18/18 10:28 07/18/18 10:28 Interpretation: Hypertensive - Improved without intervention prior to discharge - Notes Notes: PHYSICAL EXAMINATION: GENERAL: Well-appearing, well-nourished and in no acute distress. HEAD: Atraumatic, normocephalic. EYES: Pupils equal round and reactive to light, extraocular movements intact, conjunctiva are normal. ENT: Nares patent, oropharynx clear without exudates. Moist mucous membranes. NECK: Normal range of motion, supple without lymphadenopathy LUNGS: Breath sounds clear to auscultation bilaterally and equal. No wheezes rales or rhonchi. HEART: Regular rate and rhythm without murmurs ABDOMEN: Soft, nontender, nondistended abdomen. No guarding, no rebound. No masses appreciated. Female : deferred Musculoskeletal: Normal range of motion, no pitting or edema. No cyanosis. NEUROLOGICAL: Cranial nerves grossly intact. Normal speech, normal gait. Normal sensory, motor exams PSYCH: Normal mood, normal affect. SKIN: Warm, Dry, normal turgor, no rashes or lesions noted. Course - Re-evaluation Re-evalutation: Laboratory 07/18/18 07/18/18 07/18/18 12:06 12:06 12:06 WBC 5.4 RBC 3.57 L Hgb 11.5 L Hct 34.5 L MCV 97 MCH 32.1 MCHC 33.2 RDW 21.1 H Plt Count 172 Seg Neutrophils % 58.9 Lymphocytes % 17.7 Monocytes % 19.3 H Eosinophils % 2.8 Basophils % 1.3 Absolute Neutrophils 3.2 Absolute Lymphocytes 1.0 Absolute Monocytes 1.0 Absolute Eosinophils 0.2 Absolute Basophils 0.1 Sodium 141.4 Potassium 3.6 Chloride 105 Carbon Dioxide 27 Anion Gap 9 BUN 22 H Creatinine 1.80 H Est GFR ( Amer) 34 L Est GFR (Non-Af Amer) 28 L Glucose 83 Calcium 9.8 Magnesium 0.9 L* Urine Color YELLOW Urine Appearance SLIGHTLY-CLOUDY Urine pH 6.0 Ur Specific [place] 1.010 Urine Protein NEGATIVE Urine Glucose (UA) NEGATIVE Urine Ketones NEGATIVE Urine Blood SMALL H Urine Nitrite NEGATIVE Urine Bilirubin NEGATIVE Urine Urobilinogen NEGATIVE Ur Leukocyte Esterase LARGE H Urine WBC (Auto) 51 Urine RBC (Auto) 6 Squamous Epi Cells Auto 3 U Non-Squamous Epis Auto 3 Urine Mucus (Auto) RARE Urine Ascorbic Acid NEGATIVE 07/18/18 14:09 WBC RBC Hgb Hct MCV MCH MCHC RDW Plt Count Seg Neutrophils % Lymphocytes % Monocytes % Eosinophils % Basophils % Absolute Neutrophils Absolute Lymphocytes Absolute Monocytes Absolute Eosinophils Absolute Basophils Sodium Potassium Chloride Carbon Dioxide Anion Gap BUN Creatinine Est GFR ( Amer) Est GFR (Non-Af Amer) Glucose Calcium Magnesium 2.2 D Urine Color Urine Appearance Urine pH Ur Specific [place] Urine Protein Urine Glucose (UA) Urine Ketones Urine Blood Urine Nitrite Urine Bilirubin Urine Urobilinogen Ur Leukocyte Esterase Urine WBC (Auto) Urine RBC (Auto) Squamous Epi Cells Auto U Non-Squamous Epis Auto Urine Mucus (Auto) Urine Ascorbic Acid Temp Pulse Resp BP Pulse Ox 98.5 F 95 19 175/75 H 99 07/18/18 10:28 07/18/18 10:28 07/18/18 15:01 07/18/18 15:01 07/18/18 15:01 68-year-old female presented after recent lab work showed a magnesium of 0.9. Patient did receive 2 g of magnesium during her ED course and repeat magnesium now 2.2. Patient was monitored in the emergency department without any adverse events. Patient initially with markedly elevated blood pressure which improved without intervention. Patient was discharged home in stable condition. Patient was evaluated and treated as appropriate for the patient's presenting symptoms and complaint, with consideration of any critical or life threatening conditions that may be associated with their obtained history and exam as noted above. All results were discussed with patient and her patient provided the opportunity to ask questions, and express concerns. Patient was educated on rodrigo tments based on their presumed diagnosis as noted above. At this time we will discharge the patient with return precautions and follow-up recommendations. Verbal discharge instructions given a the bedside. Medication warnings reviewed. Patient is in agreement with this plan and has verbalized understanding of return precautions. After careful consideration I feel that that patient can be safely discharged from the emergency department, they were advised to followup with a primary care physician in 2-3 days. Dictation on this chart was performed using voice recognition software and may result in unintended grammatical, spelling, syntax or errors. 07/18/18 17:21 - Vital Signs Vital signs: Temp Pulse Resp BP Pulse Ox 98.5 F 95 19 175/75 H 99 07/18/18 10:28 07/18/18 10:28 07/18/18 15:01 07/18/18 15:01 07/18/18 15:01 - Laboratory Result Diagrams: 07/18/18 12:06 07/18/18 12:06 Laboratory results interpreted by me: 07/18/18 07/18/18 07/18/18 12:06 12:06 12:06 RBC 3.57 L Hgb 11.5 L Hct 34.5 L RDW 21.1 H Monocytes % 19.3 H BUN 22 H Creatinine 1.80 H Est GFR ( Amer) 34 L Est GFR (Non-Af Amer) 28 L Magnesium 0.9 L* Urine Blood SMALL H Ur Leukocyte Esterase LARGE H - EKG Interpretation by Me EKG shows normal: Sinus rhythm Rate: Normal Rhythm: NSR When compared to previous EKG there are: No significant change Discharge - Discharge Clinical Impression: Hypomagnesemia Lung cancer Qualifiers: Laterality: unspecified laterality Lung location: unspecified part of lung Qualified Code(s): C34.90 - Malignant neoplasm of unspecified part of unspecified bronchus or lung Hypertension Qualifiers: Hypertension type: unspecified Qualified Code(s): I10 - Essential (primary) hypertension Condition: Good Disposition: HOME, SELF-CARE Additional Instructions: Your magnesium level was found to be extremely low. After replenishment it is now in the normal range. I will provide you a copy of your lab work that was obtained today. Your EKG was also within normal limits. Please follow-up with your primary care physician and oncologist as already scheduled. Forms: Elevated Blood Pressure Referrals: Cole SYED MD [ACTIVE STAFF] - Follow up as needed
[2018-07-18] MEDS: MAGNESIUM SULFATE/D5W 1 GM/100 ML RTUPB IV SCH ×2 (12:21→13:15)
[2018-07-18 12:32] LABS: ABSOLUTE BASOPHILS # (AUTO) 0.1 10^3/uL (0.0-0.2); ABSOLUTE EOSINOPHILS # (AUTO) 0.2 10^3/uL (0.0-0.6); ABSOLUTE NEUT (AUTO) 3.2 10^3/uL (1.7-8.2); BASOPHILS % (AUTO) 1.3 % (0-2); EOSINOPHILS % (AUTO) 2.8 % (0-6); HEMATOCRIT 34.5 % (36.0-47.0); HEMOGLOBIN 11.5 g/dL (12.0-15.5); LYMPHOCYTES % (AUTO) 17.7 % (13-45); MEAN CORPUSCULAR HEMOGLOBIN 32.1 pg (27.0-33.4); MEAN CORPUSCULAR HGB CONC 33.2 g/dL (32.0-36.0); MEAN CORPUSCULAR VOLUME 97 fl (80-97); MONOCYTES % (AUTO) 19.3 % (3-13); PLATELET COUNT 172 10^3/uL (150-450); RED BLOOD COUNT 3.57 10^6/uL (3.72-5.28); RED CELL DISTRIBUTION WIDTH 21.1 % (11.5-14.0); SEGMENTED NEUTROPHILS % (AUTO) 58.9 % (42-78); TOTAL CELLS COUNTED % (AUTO) 100 %; WHITE BLOOD COUNT 5.4 10^3/uL (4.0-10.5)
[2018-07-18 12:42] LABS: APPEARANCE,URINE SLIGHTLY-CLOUDY; BILIRUBIN,URINE NEGATIVE (NEGATIVE); COLOR,URINE YELLOW; GLUCOSE, URINE NEGATIVE (NEGATIVE); KETONES,URINE NEGATIVE (NEGATIVE); LEUKOCYTE ESTERASE,URINE LARGE (NEGATIVE); NITRITE,URINE NEGATIVE (NEGATIVE); PROTEIN,URINE NEGATIVE (NEGATIVE); UROBILINOGEN,URINE NEGATIVE mg/dL (<2.0)
[2018-07-18 12:46] LABS: ANION GAP 9 (5-19); BLOOD UREA NITROGEN 22 mg/dL (7-20); CALCIUM 9.8 mg/dL (8.4-10.2); CARBON DIOXIDE 27 mmol/L (22-30); CHLORIDE 105 mmol/L (98-107); GLUCOSE 83 mg/dL (75-110); POTASSIUM 3.6 mmol/L (3.6-5.0); SODIUM 141.4 mmol/L (137-145)
[2018-07-18] MEDS ORDERED: ACETAMINOPHEN 325 MG TABLET ONE (13:10)
[2018-07-18 15:09] VITALS: BP 175/75
--- NOTE | 2018-07-18 17:16 | EKG REPORT ---
SEVERITY:- NORMAL ECG - SINUS RHYTHM : Confirmed by: Terrie Johns MD 18-Jul-2018 17:16:04
== END 2018-07-18 15:38 | disposition home or self-care (01) ==
LOC: ER 10:18
DX: E83.42 Hypomagnesemia (principal); C34.90 Malignant neoplasm of unspecified part of unspecified bronchus or lung; I10 Essential (primary) hypertension; E78.5 Hyperlipidemia, unspecified; D64.9 Anemia, unspecified; Z79.899 Other long term (current) drug therapy
CPT/HCPCS: 93005; 36591; 99284; 96365; 36415; 83735; 85025; 80048; 81001; 93010; A9270; J3475; 76770; 80053; 83970; 84100; 85027; 93976

== ENCOUNTER → 2018-07-18 | Outpatient (CLI) | payer MEDICARE, OTHER ==
[2018-07-18 08:08] LABS: HEMATOCRIT 35.6 % (36.0-47.0); HEMOGLOBIN 11.9 g/dL (12.0-15.5); MEAN CORPUSCULAR HGB CONC 33.6 g/dL (32.0-36.0); MEAN CORPUSCULAR VOLUME 95 fl (80-97); PLATELET COUNT 175 10^3/uL (150-450); RED BLOOD COUNT 3.73 10^6/uL (3.72-5.28); RED CELL DISTRIBUTION WIDTH 21.1 % (11.5-14.0); WHITE BLOOD COUNT 6.4 10^3/uL (4.0-10.5)
[2018-07-18 08:17] LABS: APPEARANCE,URINE SLIGHTLY-CLOUDY; BILIRUBIN,URINE NEGATIVE (NEGATIVE); COLOR,URINE YELLOW; GLUCOSE, URINE NEGATIVE (NEGATIVE); KETONES,URINE NEGATIVE (NEGATIVE); LEUKOCYTE ESTERASE,URINE LARGE (NEGATIVE); NITRITE,URINE NEGATIVE (NEGATIVE); PROTEIN,URINE 30 mg/dL (NEGATIVE); URINE SPECIFIC GRAVITY 1.013; UROBILINOGEN,URINE NEGATIVE mg/dL (<2.0)
[2018-07-18 08:24] LABS: ALANINE AMINOTRANSFERASE 23 U/L (9-52); ALBUMIN 4.1 g/dL (3.5-5.0); ALKALINE PHOSPHATASE 46 U/L (38-126); ANION GAP 11 (5-19); ASPARTATE AMINO TRANSFERASE 38 U/L (14-36); BILIRUBIN,DIRECT 0.3 mg/dL (0.0-0.4); BLOOD UREA NITROGEN 23 mg/dL (7-20); CARBON DIOXIDE 25 mmol/L (22-30); CHLORIDE 105 mmol/L (98-107); GLUCOSE 92 mg/dL (75-110); PHOSPHORUS 3.9 mg/dL (2.5-4.5); POTASSIUM 3.8 mmol/L (3.6-5.0); SODIUM 141.3 mmol/L (137-145); TOTAL PROTEIN 6.9 g/dL (6.3-8.2)
--- NOTE | 2018-07-18 09:21 | RADIOLOGY REPORT (SQ) ---
EXAM DESCRIPTION: U/S LTD DUPLEX ART/MICHEAL FLOW COMPLETED DATE/TIME: 07/18/2018 8:43 am REASON FOR STUDY: CKD IV (N18.4), LUNG CA (C34.90) N18.4 CHRONIC KIDNEY DISEASE, STAGE 4 (SEVERE) C 34.90 MALIGNANT NEOPLASM OF UNSP PART OF UNSP BRONCHUS OR L COMPARISON: None. TECHNIQUE: Realtime and static grayscale images acquired. Selected color Doppler, velocities and spe ctral images recorded. LIMITATIONS: None. FINDINGS: RIGHT KIDNEY: RENAL ARTERY VELOCITIES: 76 cm/sec. Segmental artery velocity 78 cm/sec. RENAL VEIN: Color doppler flow present, patent. VELOCITY RATIO: 1.2. Normal waveforms. KIDNEY: Normal size. No significant pathology. LEFT KIDNEY: RENAL ARTERY VELOCITIES: 92 cm/sec. Segmental artery velocity 64 cm/sec. RENAL VEIN: Color doppler flow present, patent. VELOCITY RATIO: 1.4. Normal waveforms. KIDNEY: Normal size. No significant pathology. BLADDER: Normal. OTHER: No other significant finding. IMPRESSION: NO DOPPLER EVIDENCE OF HEMODYNAMICALLY SIGNIFICANT RENAL ARTERY STENOSIS. COMMENT: NORMAL RENAL ARTERY/AORTA VELOCITY RATIO IS LESS THAN OR EQUAL TO 3.5. TECHNICAL DOCUMENTATION: JOB ID: [id number] [employer]- All Rights Reserved Reading location - IP/workstation name: [email or web address]
== END ==
LOC: RAD 07:26
PROVIDERS: ATTEND Internal Medicine Nephrology
DX: I12.9 Hypertensive chronic kidney disease with stage 1 through stage 4 chronic kidney disease, or unspecified chronic kidney disease (principal); N18.4 Chronic kidney disease, stage 4 (severe); C34.90 Malignant neoplasm of unspecified part of unspecified bronchus or lung
CPT/HCPCS: 36415; 76770; 80053; 81001; 83735; 83970; 84100; 85027; 93976

== ENCOUNTER → 2018-08-19 | Outpatient (CLI) | payer MEDICARE, OTHER ==
--- NOTE | 2018-08-20 09:16 | RADIOLOGY REPORT (SQ) ---
EXAM DESCRIPTION: PET CT SKULL/THIGH COMPLETED DATE/TIME: 08/19/2018 8:34 pm REASON FOR STUDY: LUNG CANCER C34.11 MALIGNANT NEOPLASM OF UPPER LOBE, RIGHT BRONCHUS OR L COMPARISON: 03/11/2018. RADIONUCLIDE AND DOSE: 9.9 mCi F18 FDG The route of agent administration: Intravenous FASTING BLOOD SUGAR: 78 mg/dl CONTRAST TYPE AND DOSE: No CT contrast given. TECHNIQUE: Blood glucose level was verified. Above dose of FDG was injected intravenously. 2-D seg mented attenuation correction images were obtained from the base of the skull to the midthighs. Nonc ontrast CT images were obtained for attenuation correction and fusion with emission images. CT image s were performed without oral or intravenous contrast and are not sensitive for parenchymal lesions. A series of overlapping emission PET images were obtained. Images reviewed and manipulated at [facility] work station by the radiologist. Images stored on PACS. LIMITATIONS: Uptake associated with movement. FINDINGS: HEAD AND NECK: No areas of abnormal metabolic activity in the soft tissues of the head and neck. CHEST: There is a rind of increased uptake associated with airspace disease in the posterior right lo wer lobe SUV 4.7. There is bilateral fairly symmetric uptake within the cervical and thoracic paraspinal musculature, r ight intercostals, and bilateral gluteal muscles which is suspected to be artifactual due to patient movement. ABDOMEN AND PELVIS: No areas of abnormal metabolic activity in the abdomen or pelvis. Expected physi ologic activity is present in the genitourinary system and bowel. PROXIMAL LOWER EXTREMITIES: No areas of abnormal metabolic activity in the soft tissues of the lower extremities. BONES: There is uptake in the left posterior 9th rib 3.6 SUV but no corresponding abnormality on CT i mages and no uptake on bone scan in May 2018. This may also be artifact associated with interco stal muscle activity. ADDITIONAL CT FINDINGS: Left-sided port tip in the SVC. Stable 8 mm nodule right upper lobe. Stable emphysema. 2 mm nonobstructing right renal calculus. OTHER: No other significant findings. IMPRESSION: 1. Technical limitations as above. Hypermetabolic right lower lobe airspace disease could represent local recurrence or infection. 2. Other areas of abnormal uptake which are felt to be artifactual. Cannot entirely exclude metastas is, however the pattern is unusual for metastatic disease. TECHNICAL DOCUMENTATION: JOB ID: [id number]- All Rights Reserved Reading location - IP/workstation name: [email or web address]
== END ==
LOC: RAD 14:18
PROVIDERS: ATTEND Internal Medicine Medical Oncology
DX: C34.11 Malignant neoplasm of upper lobe, right bronchus or lung (principal)
CPT/HCPCS: 78815; A9552

== ENCOUNTER 2018-08-26 23:40 | Emergency (ER) | payer MEDICARE, OTHER ==
[2018-08-27 00:50] LABS: ABSOLUTE LYMPHOCYTES (AUTO) 0.3 10^3/uL (0.5-4.7); ABSOLUTE MONOCYTES (AUTO) 0.3 10^3/uL (0.1-1.4); ABSOLUTE NEUT (AUTO) 0.2 10^3/uL (1.7-8.2); BASOPHILS % (AUTO) 0.6 % (0-2); EOSINOPHILS % (AUTO) 5.7 % (0-6); HEMATOCRIT 17.5 % (36.0-47.0); LYMPHOCYTES % (AUTO) 36.5 % (13-45); MEAN CORPUSCULAR HEMOGLOBIN 31.8 pg (27.0-33.4); MEAN CORPUSCULAR HGB CONC 34.2 g/dL (32.0-36.0); MEAN CORPUSCULAR VOLUME 93 fl (80-97); RED BLOOD COUNT 1.89 10^6/uL (3.72-5.28); SEGMENTED NEUTROPHILS % (AUTO) 24.2 % (42-78); TOTAL CELLS COUNTED % (AUTO) 100 %
[2018-08-27 01:14] LABS: BLOOD UREA NITROGEN 65 mg/dL (7-20); CALCIUM 9.1 mg/dL (8.4-10.2); GLUCOSE 98 mg/dL (75-110)
[2018-08-27 01:16] LABS: ALANINE AMINOTRANSFERASE 33 U/L (9-52); ALBUMIN 3.1 g/dL (3.5-5.0); ALKALINE PHOSPHATASE 54 U/L (38-126); ANION GAP 8 (5-19); ASPARTATE AMINO TRANSFERASE 37 U/L (14-36); BILIRUBIN,DIRECT 0.2 mg/dL (0.0-0.4); BILIRUBIN,TOTAL 0.4 mg/dL (0.2-1.3); CARBON DIOXIDE 26 mmol/L (22-30); CHLORIDE 102 mmol/L (98-107); POTASSIUM 3.7 mmol/L (3.6-5.0); SODIUM 136.2 mmol/L (137-145)
[2018-08-27 01:17] LABS: TOTAL PROTEIN 5.6 g/dL (6.3-8.2)
[2018-08-27 01:18] LABS: WHITE BLOOD COUNT 0.8 10^3/uL (4.0-10.5)
--- NOTE | 2018-08-27 01:20 | ER Document Report ---
ED General - General Chief Complaint: Weakness Stated Complaint: WEAKNESS Time Seen by Provider: 08/27/18 00:04 Primary Care Provider: MAY NEWTON DO [Primary Care Provider] - Follow up as needed Notes: Patient is a 68-year-old female with a history of stage IV lung cancer is currently in chemotherapy. Last chemotherapy was 2 weeks ago. She says over the last 3 days she has had progressive worsening weakness until today where she cannot stand up on her own and her had to help her get around. No fevers. No vomiting. No diarrhea. No other complaints at this time. Denies chest pain. She denies abdominal pain. She does have some history of occasional anemia likely related to previous chemotherapy. She denies recently coughing up blood. She has not noticed any red blood in her stool. TRAVEL OUTSIDE OF THE [place] IN LAST 30 DAYS: No - Related Data Allergies/Adverse Reactions: Tetanus Vaccines and Toxoid Allergy (Unknown, Verified 08/27/18 01:49) Penicillins Allergy (Verified 08/27/18 01:49) Past Medical History - Social History Smoking Status: Former Smoker Frequency of alcohol use: None Drug Abuse: None Family History: Reviewed & Not Pertinent - Past Medical History Cardiac Medical History: Reports: Hx Hypercholesterolemia, Hx Hypertension Denies: Hx Congestive Heart Failure, Hx Heart Attack Pulmonary Medical History: Reports: Hx Bronchitis Denies: Hx Asthma, Hx COPD, Hx Pneumonia, Hx Tuberculosis Neurological Medical History: Denies: Hx Seizures Renal/ Medical History: Denies: Hx End Stage Renal Disease, Hx Kidney Stones, Hx Peritoneal Dialysis Malignancy Medical History: Reports: Hx Lung Cancer, Hx Skin Cancer GI Medical History: Denies: Hx Cirrhosis, Hx Gastroesophageal Reflux Disease, Hx Ulcer Musculoskeletal Medical History: Reports Hx Arthritis, Denies Hx Multiple Sclerosis, Reports Hx Musculoskeletal Trauma Psychiatric Medical History: Denies: Hx Bipolar Disorder, Hx Depression, Hx Schizophrenia Past Surgical History: Reports: Hx Orthopedic Surgery - Immunizations Hx Diphtheria, Pertussis, Tetanus Vaccination: Yes Review of Systems - Review of Systems Notes: My Normal Review Basic REVIEW OF SYSTEMS: CONSTITUTIONAL : Denies fever, chills, or sweats. Generalized weakness. EENT: Denies eye, ear, throat, or mouth pain or symptoms. Denies nasal or sinus congestion. CARDIOVASCULAR: Denies chest pain. RESPIRATORY: Denies cough, cold, or chest congestion. Denies shortness of br eath, difficulty breathing, or wheezing. GASTROINTESTINAL: Denies abdominal pain. Denies nausea, vomiting, or diarrhea. GENITOURINARY: Denies difficulty urinating, painful urination, burning, collins quency, or blood in urine. FEMALE GENITOURINARY: Denies vaginal bleeding, abnormal or irregular periods. LMP: MUSCULOSKELETAL: Denies neck or back pain or joint pain or swelling. SKIN: Denies rash or skin lesions. HEMATOLOGIC : On chemotherapy. NEUROLOGICAL: Denies altered mental status or loss of consciousness. Denies headache. Denies weakness or paralysis or loss of use of either side. Denies problems with gait or speech. Denies sensory or motor loss. ALL OTHER SYSTEMS REVIEWED AND NEGATIVE. Physical Exam - Vital signs Vitals: Temp Pulse Resp BP Pulse Ox 97.5 F 91 16 110/60 91 L 08/26/18 23:47 08/26/18 23:47 08/26/18 23:47 08/26/18 23:47 08/26/18 23:47 - Notes Notes: General Appearance: Well nourished, alert, cooperative, no acute distress, no obvious discomfort. Well-appearing. Vitals: reviewed, See vital signs table. Head: no swelling or tenderness to the head Eyes: PERRL, EOMI, Conjuctiva clear Mouth: No decreasd moisture Throat: No tonsillar inflammation, No airway obstruction, No lymphadenopathy Neck: Supple, no neck tenderness, No thyromegaly Lungs: No wheezing, No rales, No rhonci, No accessory muscle use, good air exchange bilaterally. Heart: Normal rate, Regular rythm, No murmur, no rub Abdomen: Normal BS, soft, No rigidity, No abdominal tenderness, No guarding, no rebound, no abdominal masses, no organomegaly Rectal exam: Black stool which is guaiac positive. Extremities: strength 5/5 in all extremities, good pulses in all extremities, no swelling or tenderness in the extremities, no edema. Skin: warm, dry, appropriate color, no rash Neuro: speech clear, oriented x 3, normal affect, responds appropriately to questions. Course - Re-evaluation Re-evalutation: 08/27/18 02:23 Patient's got pancytopenia. I did ask her further questions about her stool. She has been noticing black tarry stools for last 1-2 days. I did a stool guaiac in her stool is black and strongly positive on guaiac card. We do not have any GI coverage. Being that the patient has platelets of 12, low hemoglobin, and an active GI bleed I will have to transfer her. We do not have GI coverage until Monday. 08/27/18 02:27 08/27/18 02:49 I did speak with Dr. Onel Stratton, hospitalist at [facility], agrees to accept the patient for transfer. Initially remained to [facility] level bed. Patient then started to drop her blood pressure. I rechecked it with a manual blood pressure cuff and it is in the low 80s systolically. I will give her a bolus of normal saline. I have called back to [facility] and informed him of this and upgraded to ICU status bed. If her blood pressure does not respond to the normal saline bolus then I will just go forward with packed red blood cell transfusion is not irradiated being that we will not have irradiated blood for approximately 6 hours. 08/27/18 03:04 Patient's blood pressure is not responding as well as I would like to the IV fluids. I therefore feel the need to give her blood regardless if it is radiating or not. I cannot wait 6 hours for radiated blood. I explained the risks and benefits the patient and she is agreeable to go ahead and receive irradiated blood. 08/27/18 04:16 His blood pressure has improved since starting of blood. Blood pressures on 120/59. She did start complaining of some chest pain. Her oxygen started a little bit low. Oxygen saturations down to 88%. I therefore placed on oxygen and her saturations are 96%. I did do repeat EKG which did not show any concerning ischemic changes other than just a single PVC. Patient appears to be improving. 08/27/18 05:47 Transport team arrived and I was at bedside when they arrived. Patient is feeling well. Her blood pressure has remained stable since receiving the blood. Oxygenation is stable with 2 L of nasal cannula. Chest pain is resolved. EKG was normal. Feel she is stable for transport. Dictation of this chart was performed using voice recognition software; therefore, there may be some unintended grammatical errors. - Vital Signs Vital signs: Temp Pulse Resp BP Pulse Ox 98 F 84 13 115/47 L 97 08/27/18 04:50 08/27/18 04:11 08/27/18 04:50 08/27/18 04:50 08/27/18 04:50 - Laboratory Result Diagrams: 08/27/18 00:33 08/27/18 00:33 Laboratory results interpreted by me: 08/27/18 08/27/18 08/27/18 00:33 00:33 01:35 WBC 0.8 L* RBC 1.89 L Hgb 6.0 L Hct 17.5 L RDW 16.0 H Plt Count 12 L* Seg Neutrophils % 24.2 L Monocytes % 33.0 H Absolute Neutrophils 0.2 L Absolute Lymphocytes 0.3 L Sodium 136.2 L BUN 65 H Creatinine 2.25 H Est GFR ( Amer) 26 L Est GFR (Non-Af Amer) 22 L Magnesium 2.6 H AST 37 H Total Protein 5.6 L Albumin 3.1 L Urine Blood Crossmatch See Detail 08/27/18 01:58 WBC RBC Hgb Hct RDW Plt Count Seg Neutrophils % Monocytes % Absolute Neutrophils Absolute Lymphocytes Sodium BUN Creatinine Est GFR ( Amer) Est GFR (Non-Af Amer) Magnesium AST Total Protein Albumin Urine Blood MODERATE H Crossmatch - EKG Interpretation by Me Additional EKG results interpreted by me: 08/27/18 01:19 EKG is reviewed and interpreted by me. EKG shows sinus rhythm with rate of [address] segment elevation or depression. No ischemic T wave inversions. FL interval, QRS duration, QT intervals are within normal range. Old EKG for kisha hyde is from July 18, 2018. 08/27/18 04:15 EKG #2 is reviewed and interpreted by me. EKG shows sinus rhythm with a rate of [address] segment elevation or depression. No ischemic T wave inversion. Occasional PVC. FL interval, QRS duration, QT intervals are within normal range. No old EKG available for comparison. Critical Care Note - Critical Care Note Total time excluding time spent on procedures (mins): 40 Comments: Critical care time for the patient not including time spent in procedures approximately 40 minutes due to frequent re-evaluations, management of hypertension, management of severe anemia and thrombus cytopenia in unction with a likely upper GI bleed. Discharge - Discharge Clinical Impression: Thrombocytopenia Anemia Qualifiers: Anemia type: unspecified type Qualified Code(s): D64.9 - Anemia, unspecified GI bleed Qualifiers: GI bleed type/associated pathology: melena Qualified Code(s): K92.1 - Melena Leukopenia Qualifiers: Leukopenia type: unspecified Qualified Code(s): D72.819 - Decreased white blood cell count, unspecified Condition: Stable Disposition: [facility]
[2018-08-27 01:23] LABS: TOXIC GRANULATION SLIGHT
[2018-08-27 01:24] LABS: ANISOCYTOSIS 1+; OVALOCYTES 2+; PLATELET COMMENT DECREASED; POIKILOCYTOSIS 2+; SCHISTOCYTES 1+; TEAR DROP CELLS 1+
--- NOTE | 2018-08-27 01:34 | RADIOLOGY REPORT (SQ) ---
EXAM DESCRIPTION: XR CHEST 1 VIEW COMPLETED DATE/TME: 08/27/2018 00:19 CLINICAL HISTORY: 68 years, Female, weakness COMPARISON: May 21, 2018 NUMBER OF VIEWS: One TECHNIQUE: AP view of the chest LIMITATIONS: None. FINDINGS: Mediport from a left IJ approach is unchanged in position. The lungs are clear. There are no pleural abnormalities. Cardiac silhouette and pulmonary vessels are normal. IMPRESSION: No acute cardiopulmonary disease. copyright 2010 [employer]- All Rights Reserved
[2018-08-27] MEDS ORDERED: NORMAL SALINE 250 ML IV PRN (02:00)
[2018-08-27 02:19] LABS: APPEARANCE,URINE CLEAR; BILIRUBIN,URINE NEGATIVE (NEGATIVE); COLOR,URINE YELLOW; GLUCOSE, URINE NEGATIVE (NEGATIVE); KETONES,URINE NEGATIVE (NEGATIVE); LEUKOCYTE ESTERASE,URINE NEGATIVE (NEGATIVE); NITRITE,URINE NEGATIVE (NEGATIVE); PROTEIN,URINE NEGATIVE (NEGATIVE); UROBILINOGEN,URINE NEGATIVE mg/dL (<2.0)
[2018-08-27] MEDS ORDERED: PANTOPRAZOLE SODIUM 40 MG VIAL IV ONE (02:21)
[2018-08-27] MEDS ORDERED: PANTOPRAZOLE SODIUM 40 MG VIAL IV PRN (02:21)
[2018-08-27] MEDS ORDERED: NORMAL SALINE 1000 ML 1,000 ML IV ONE (02:47)
[2018-08-27] MEDS ORDERED: FENTANYL CITRATE INJ/PF 100 MCG/2 ML AMPUL IV ONE (04:03)
[2018-08-27 04:58] VITALS: BP 115/47
--- NOTE | 2018-08-27 06:56 | EKG REPORT ---
SEVERITY:- NORMAL ECG - SINUS RHYTHM : Confirmed by: Maricel Briceno 27-Aug-2018 06:56:21
[2018-08-28 12:16] LABS: PLATELET COUNT 12 10^3/uL (150-450)
[2018-08-29 13:00] LABS: PATH REVIEW PATHOLOGIST REVIEWED
== END 2018-08-27 05:09 | disposition short-term general hospital (02) ==
LOC: ER 23:40
DX: K92.2 Gastrointestinal hemorrhage, unspecified (principal); C34.90 Malignant neoplasm of unspecified part of unspecified bronchus or lung; Z79.899 Other long term (current) drug therapy; D61.818 Other pancytopenia; I49.3 Ventricular premature depolarization; R07.9 Chest pain, unspecified; R53.1 Weakness; I10 Essential (primary) hypertension; Z88.7 Allergy status to serum and vaccine; Z88.0 Allergy status to penicillin; Z87.891 Personal history of nicotine dependence
CPT/HCPCS: 93005; 86900; 86901; 36415; 36430; 86850; 83735; 85025; 80053; 81001; 84484; 86920; 71045; 93010; P9016; J3010; C9113; J7030; S0164

== ENCOUNTER 2018-09-17 20:32 | Emergency (ER) | payer MEDICARE, OTHER ==
--- NOTE | 2018-09-17 21:37 | ER Document Report ---
ED Medical Screen (RME) - General Chief Complaint: Abnormal Lab Results Stated Complaint: BLOOD WORK Time Seen by Provider: 09/17/18 21:26 Primary Care Provider: Cole FRY MD [Primary Care Provider] - Follow up as needed Notes: Patient is a 68-year-old female presents to the emergency department for low magnesium. Patient is a cancer patient patient of Dr. Fay and also a renal patient patient of Dr. Fry. He is her primary care provider Dr. Isidro check routine bloods today and called her and told her that her magnesium was low and she need to present to the emergency room. Patient is currently complaint free. She is denying any chest pain, shortness of breath, nausea, vomiting, muscle twitching or aching, fever, URI symptoms, abdominal pain, dysuria. GENERAL: Alert, interacts well. No acute distress. HEAD: Normocephalic, atraumatic. LUNGS: Clear to auscultation bilaterally, no wheezes, rales, or rhonchi. No respiratory distress. PSYCH: Normal affect, normal mood. SKIN: Warm, dry, normal turgor. No rashes or lesions noted. I have greeted and performed a rapid initial assessment of this patient. A comprehensive ED assessment and evaluation of the patient, analysis of test resu lts and completion of the medical decision making process will be conducted by additional ED providers. TRAVEL OUTSIDE OF THE [place] IN LAST 30 DAYS: No - Related Data Allergies/Adverse Reactions: Tetanus Vaccines and Toxoid Allergy (Unknown, Verified 08/27/18 01:49) Penicillins Allergy (Verified 08/27/18 01:49) Past Medical History - Social History Frequency of alcohol use: None Drug Abuse: None - Past Medical History Cardiac Medical History: Reports: Hx Hypercholesterolemia, Hx Hypertension Denies: Hx Congestive Heart Failure, Hx Heart Attack Pulmonary Medical History: Reports: Hx Bronchitis Denies: Hx Asthma, Hx COPD, Hx Pneumonia, Hx Tuberculosis Neurological Medical History: Denies: Hx Seizures Renal/ Medical History: Denies: Hx End Stage Renal Disease, Hx Kidney Stones, Hx Peritoneal Dialysis Malignancy Medical History: Reports: Hx Lung Cancer, Hx Skin Cancer GI Medical History: Denies: Hx Cirrhosis, Hx Gastroesophageal Reflux Disease, Hx Ulcer Musculoskeltal Medical History: Reports Hx Arthritis, Denies Hx Multiple Sclero sis, Reports Hx Musculoskeletal Trauma Psychiatric Medical History: Denies: Hx Bipolar Disorder, Hx Depression, Hx Schizophrenia Past Surgical History: Reports: Hx Orthopedic Surgery - Immunizations Hx Diphtheria, Pertussis, Tetanus Vaccination: Yes History of Influenza Vaccine for 04/2017 - 09/2017 Season: Yes Influenza Administration Date for 04/2017 - 09/2017 Season: 04/16/17 Physical Exam - Vital signs Vitals: Temp Pulse Resp BP Pulse Ox 97.7 F 68 18 151/63 H 94 09/17/18 21:18 09/17/18 21:18 09/17/18 21:18 09/17/18 21:18 09/17/18 21:18 Course - Vital Signs Vital signs: Temp Pulse Resp BP Pulse Ox 97.7 F 68 18 151/63 H 94 09/17/18 21:18 09/17/18 21:18 09/17/18 21:18 09/17/18 21:18 09/17/18 21:18 Doctor's Discharge - Discharge Referrals: Cole FRY MD [Primary Care Provider] - Follow up as needed
[2018-09-17 23:13] LABS: ALANINE AMINOTRANSFERASE 24 U/L (9-52); ALBUMIN 3.3 g/dL (3.5-5.0); ALKALINE PHOSPHATASE 67 U/L (38-126); ANION GAP 8 (5-19); ASPARTATE AMINO TRANSFERASE 26 U/L (14-36); BILIRUBIN,DIRECT 0.2 mg/dL (0.0-0.4); BILIRUBIN,TOTAL 0.3 mg/dL (0.2-1.3); BLOOD UREA NITROGEN 22 mg/dL (7-20); CALCIUM 7.7 mg/dL (8.4-10.2); CARBON DIOXIDE 26 mmol/L (22-30); CHLORIDE 109 mmol/L (98-107); GLUCOSE 103 mg/dL (75-110); SODIUM 142.5 mmol/L (137-145); TOTAL PROTEIN 6.2 g/dL (6.3-8.2)
[2018-09-17] MEDS: MAGNESIUM SULFATE/D5W 1 GM/100 ML RTUPB IV SCH ×2 (23:15→23:47)
[2018-09-17] MEDS ORDERED: DEXAMETHASONE SOD PHOS INJ 10 MG/1 ML VIAL IV ONE (23:51)
--- NOTE | 2018-09-18 00:18 | ER Document Report ---
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 Patient denies any symptoms associated with her low magnesium. Denies any seizures, headache, neck pain, weakness, numbness imbalance or confusion. Does state that she developed diffuse urticarial lesions after eating a pistachio this morning has no previous history of reactions pistachios. Describes these as being pruritic, burning and discomfort. She did take some Benadryl with moderate relief. Has not seen her primary care doctor regarding t hat specific concern. She denies any associated lightheadedness, shortness of breath, nausea, vomiting or abdominal cramping. TRAVEL OUTSIDE OF THE [place] IN LAST 30 DAYS: No - Related Data Allergies/Adverse Reactions: Tetanus Vaccines and Toxoid Allergy (Unknown, Verified 08/27/18 01:49) Penicillins Allergy (Verified 08/27/18 01:49) Past Medical History - General Information source: Patient - Social History Smoking Status: Never Smoker Frequency of alcohol use: None Drug Abuse: None Lives with: Spouse/Significant other Family History: Reviewed & Not Pertinent Patient has suicidal ideation: No Patient has homicidal ideation: No - Past Medical History Cardiac Medical History: Reports: Hx Hypercholesterolemia, Hx Hypertension Denies: Hx Congestive Heart Failure, Hx Heart Attack Pulmonary Medical History: Reports: Hx Bronchitis Denies: Hx Asthma, Hx COPD, Hx Pneumonia, Hx Tuberculosis Neurological Medical History: Denies: Hx Seizures Renal/ Medical History: Denies: Hx End Stage Renal Disease, Hx Kidney Stones, Hx Peritoneal Dialysis Malignancy Medical History: Reports: Hx Lung Cancer, Hx Skin Cancer GI Medical History: Denies: Hx Cirrhosis, Hx Gastroesophageal Reflux Disease, Hx Ulcer Musculoskeletal Medical History: Reports Hx Arthritis, Denies Hx Multiple Scle rosis, Reports Hx Musculoskeletal Trauma Psychiatric Medical History: Denies: Hx Bipolar Disorder, Hx Depression, Hx Schizophrenia Past Surgical History: Reports: Hx Orthopedic Surgery - Immunizations Hx Diphtheria, Pertussis, Tetanus Vaccination: Yes Review of Systems - Review of Systems Notes: Constitutional: Negative for fever. HENT: Negative for sore throat. Eyes: Negative for visual changes. Cardiovascular: Negative for chest pain. Respiratory: Negative for shortness of breath. Gastrointestinal: Negative for abdominal pain, vomiting or diarrhea. Genitourinary: Negative for dysuria. Musculoskeletal: Negative for back pain. Skin: Positive for rash. Neurological: Negative for headaches, weakness or numbness. 10 point ROS negative except as marked above and in HPI. Will Physical Exam - Vital signs Vitals: Temp Pulse Resp BP Pulse Ox 97.7 F 68 18 151/63 H 94 09/17/18 21:18 09/17/18 21:18 09/17/18 21:18 09/17/18 21:18 09/17/18 21:18 Notes: PHYSICAL EXAMINATION: GENERAL: Well-appearing, well-nourished and in no acute distress. HEAD: Atraumatic, normocephalic. EYES: Pupils equal round and reactive to light, extraocular movements intact, sclera anicteric, conjunctiva are normal. ENT: nares patent, oropharynx clear without exudates. Moist mucous membranes. NECK: Normal range of motion, supple without lymphadenopathy LUNGS: Breath sounds clear to auscultation bilaterally and equal. No wheezes rales or rhonchi. HEART: Regular rate and rhythm without murmurs ABDOMEN: Soft, nontender, normoactive bowel sounds. No guarding, no rebound. No masses appreciated. EXTREMITIES: Normal range of motion, no pitting or edema. No cyanosis. NEUROLOGICAL: No focal neurological deficits. Moves all extremities spontaneously and on command. PSYCH: Normal mood, normal affect. SKIN: Warm, Dry, normal turgor, scattered urticarial lesions Course - Re-evaluation Re-evalutation: 09/18/18 00:31 Patient presents as a referral from her dining room supervisor to low magnesium. Patient denies any associated symptoms. She does also complain of some diffuse urticarial lesions were started upon waking up this morning after eating pistachios. Does not make criteria anaphylaxis. Has been started on antihistamines and given a dose of dexamethasone. No indication for epinephrine. No respiratory, GI or cardiovascular symptoms. Patient was given 2 g of IV magnesium, will be restarted on magnesium oxide 400 mg twice daily. At this time will discharge with return precautions and follow-up recommendations. Verbal discharge instructions given a the bedside and opportunity for questions given. Medication warnings reviewed. Patient is in a greement with this plan and has verbalized understanding of return precautions and the need for primary care follow-up in the next 24-72 hours. - Vital Signs Vital signs: Temp Pulse Resp BP Pulse Ox 97.7 F 68 16 148/48 H 100 09/17/18 21:18 09/17/18 21:18 09/18/18 00:01 09/18/18 00:01 09/18/18 00:01 - Laboratory Result Diagrams: 09/17/18 22:37 Laboratory results interpreted by me: 09/17/18 22:37 Chloride 109 H BUN 22 H Creatinine 1.73 H Est GFR ( Amer) 35 L Est GFR (Non-Af Amer) 29 L Calcium 7.7 L Magnesium 0.5 L* Total Protein 6.2 L Albumin 3.3 L Discharge - Discharge Clinical Impression: Hypomagnesemia, Urticaria CKD (chronic kidney disease) Qualifiers: Chronic kidney disease stage: unspecified stage Qualified Code(s): N18.9 - Chronic kidney disease, unspecified Condition: Good Disposition: HOME, SELF-CARE Additional Instructions: Your magnesium was low today at 0.5. You have been given magnesium here in the ED and are being prescribed magnesium for home. Follow-up with Dr. Fry regarding your ongoing kidney dysfunction and low magnesium. Return if you pass out, develop weakness, have a seizure, or have any other symptoms that are worrisome to you. Prescriptions: Magnesium Oxide [Mag-Ox 400 mg Tablet] 400 mg PO BID #30 tablet Referrals: Cole FRY MD [Primary Care Provider] - Follow up tomorrow
[2018-09-18 00:33] VITALS: BP 160/61
--- NOTE | 2018-09-18 10:23 | EKG REPORT ---
SEVERITY:- ABNORMAL ECG - SINUS RHYTHM ABNORMAL T, PROBABLE ISCHEMIA, ANT-LAT LEADS T CHANGES NEW SINCE 08/27/18 EKG. : Confirmed by: Terrie Johns MD 18-Sep-2018 10:23:05
== END 2018-09-18 00:52 | disposition home or self-care (01) ==
LOC: ER 20:32
DX: E83.42 Hypomagnesemia (principal); L50.9 Urticaria, unspecified; N18.9 Chronic kidney disease, unspecified; E78.00 Pure hypercholesterolemia, unspecified; I12.9 Hypertensive chronic kidney disease with stage 1 through stage 4 chronic kidney disease, or unspecified chronic kidney disease; Z88.0 Allergy status to penicillin
CPT/HCPCS: 93005; 36591; 99283; 96375; 96365; 36415; 83735; 80053; 93010; J3475; J1100; 84100; 85025

== ENCOUNTER 2018-09-23 15:29 | Emergency (ER) | payer MEDICARE, OTHER ==
--- NOTE | 2018-09-23 15:45 | ER Document Report ---
ED Medical Screen (RME) - General Chief Complaint: Altered Mental Status Stated Complaint: CONFUSION, SHAKY Time Seen by Provider: 09/23/18 15:43 Primary Care Provider: Cole SYED MD [Primary Care Provider] - Follow up as needed Mode of Arrival: Wheelchair Information source: Patient, Relative TRAVEL OUTSIDE OF THE [place] 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 - Related Data Allergies/Adverse Reactions: Tetanus Vaccines and Toxoid Allergy (Unknown, Verified 08/27/18 01:49) Penicillins Allergy (Verified 08/27/18 01:49) Past Medical History - Past Medical History Cardiac Medical History: Reports: Hx Hypercholesterolemia, Hx Hypertension Denies: Hx Congestive Heart Failure, Hx Heart Attack Pulmonary Medical History: Reports: Hx Bronchitis Denies: Hx Asthma, Hx COPD, Hx Pneumonia, Hx Tuberculosis Neurological Medical History: Denies: Hx Seizures Renal/ Medical History: Denies: Hx End Stage Renal Disease, Hx Kidney Stones, Hx Peritoneal Dialysis Malignancy Medical History: Reports: Hx Lung Cancer, Hx Skin Cancer GI Medical History: Denies: Hx Cirrhosis, Hx Gastroesophageal Reflux Disease, Hx Ulcer Musculoskeltal Medical History: Reports Hx Arthritis, Denies Hx Multiple Sclerosis, Reports Hx Musculoskeletal Trauma Psychiatric Medical History: Denies: Hx Bipolar Disorder, Hx Depression, Hx Schizophrenia Past Surgical History: Reports: Hx Orthopedic Surgery - Immunizations Hx Diphtheria, Pertussis, Tetanus Vaccination: Yes History of Influenza Vaccine for 04/2017 - 09/2017 Season: Yes Influenza Administration Date for 04/2017 - 09/2017 Season: 04/16/17 Physical Exam - Vital signs Vitals: Pulse Resp BP Pulse Ox 75 22 H 214/96 H 94 09/23/18 15:39 09/23/18 15:39 09/23/18 15:39 09/23/18 15:39 Course - Vital Signs Vital signs: Temp Pulse Resp BP Pulse Ox 75 22 H 214/96 H 94 09/23/18 15:39 09/23/18 15:39 09/23/18 15:39 09/23/18 15:39 Doctor's Discharge - Discharge Referrals: Cole SYED MD [Primary Care Provider] - Follow up as needed
[2018-09-23 16:33] LABS: ABSOLUTE MONOCYTES (AUTO) 1.2 10^3/uL (0.1-1.4); ABSOLUTE NEUT (AUTO) 8.4 10^3/uL (1.7-8.2); BASOPHILS % (AUTO) 0.5 % (0-2); EOSINOPHILS % (AUTO) 0.1 % (0-6); HEMATOCRIT 30.5 % (36.0-47.0); HEMOGLOBIN 10.4 g/dL (12.0-15.5); MEAN CORPUSCULAR HEMOGLOBIN 32.5 pg (27.0-33.4); MEAN CORPUSCULAR HGB CONC 34.1 g/dL (32.0-36.0); MEAN CORPUSCULAR VOLUME 95 fl (80-97); MONOCYTES % (AUTO) 11.1 % (3-13); PLATELET COUNT 168 10^3/uL (150-450); RED CELL DISTRIBUTION WIDTH 21.1 % (11.5-14.0); SEGMENTED NEUTROPHILS % (AUTO) 79.3 % (42-78); TOTAL CELLS COUNTED % (AUTO) 100 %; WHITE BLOOD COUNT 10.6 10^3/uL (4.0-10.5)
[2018-09-23 16:42] LABS: INTERNATIONAL RATION (INR) 1.13; PROTHROMBIN TIME 15.1 SEC (11.4-15.4)
[2018-09-23 16:43] LABS: PARTIAL THROMBOPLASTIN TIME 58.5 SEC (23.5-35.8)
[2018-09-23] MEDS ORDERED: ACETAMINOPHEN 325 MG TABLET ONE (16:49)
[2018-09-23] MEDS ORDERED: ACETAMINOPHEN 325 MG TABLET PO ONE (16:50)
--- NOTE | 2018-09-23 16:51 | RADIOLOGY REPORT (SQ) ---
EXAM DESCRIPTION: CT HEAD WITHOUT COMPLETED DATE/TIME: 09/23/2018 3:59 pm REASON FOR STUDY: confusion COMPARISON: 08/01/2009. TECHNIQUE: Axial images acquired through the brain without intravenous contrast. Images reviewed wi th bone, brain and subdural windows. Images stored on PACS. All CT scanners at this facility use dose modulation, iterative reconstruction, and/or weight based d osing when appropriate to reduce radiation dose to as low as reasonably achievable (ALARA). [facility]: Dose Right [facility]: CareDose [facility]: Dose Right [facility]: Teradose 4D [facility]: [employer] RADIATION DOSE: CT Rad equipment meets quality standard of care and radiation dose reduction techniq ues were employed. CTDIvol: 53.2 mGy. DLP: 1070 mGy-cm. mGy. LIMITATIONS: None. FINDINGS: VENTRICLES: Normal size and contour. CEREBRUM: Prominent area of encephalomalacia left frontal lobe unchanged. . No hemorrhage. No midl ine shift. No evidence for acute infarction. Normal musa/white matter differentiation. No areas of l ow density in the white matter. CEREBELLUM: No masses. No hemorrhage. No alteration of density. No evidence for acute infarction. EXTRAAXIAL SPACES: No fluid collections. No masses. ORBITS AND GLOBE: Findings consistent with old blowout fracture of the floor of the left orbit. Old fracture deformity of left maxillary sinus. Findings consistent with old fracture deformity of left lamina papyracea. Old fracture deformity left nasal bone. There is significant image artifact over the globe of the left eye noted. CALVARIUM: Postsurgical changes of the frontal regions with defect in anterior wall of left frontal s inus most likely postsurgical. PARANASAL SINUSES: No fluid or mucosal thickening. SOFT TISSUES: No mass or hematoma. OTHER: No other significant finding. IMPRESSION: On comparison to the prior study of 08/01/2009, no significant change. Encephalomalacia left frontal lobe unchanged. EVIDENCE OF ACUTE STROKE: NO. COMMENT: Quality ID # [id number]: Final reports with documentation of one or more dose reduction techniques (e.g., Automated exposure control, adjustment of the mA and/or kV according to patient size, use of iterative reconstruction technique) TECHNICAL DOCUMENTATION: JOB ID: [id number] [employer]- All Rights Reserved Reading location - IP/workstation name: [email or web address]
[2018-09-23 16:54] LABS: ALANINE AMINOTRANSFERASE 8 U/L (9-52); ALBUMIN 3.7 g/dL (3.5-5.0); ALKALINE PHOSPHATASE 54 U/L (38-126); ANION GAP 10 (5-19); ASPARTATE AMINO TRANSFERASE 30 U/L (14-36); BILIRUBIN,DIRECT 0.3 mg/dL (0.0-0.4); BILIRUBIN,TOTAL 0.6 mg/dL (0.2-1.3); BLOOD UREA NITROGEN 25 mg/dL (7-20); CALCIUM 8.5 mg/dL (8.4-10.2); CARBON DIOXIDE 28 mmol/L (22-30); CHLORIDE 102 mmol/L (98-107); CREATINE KINASE 35 U/L (30-135); GLUCOSE 96 mg/dL (75-110); POTASSIUM 3.9 mmol/L (3.6-5.0); SODIUM 139.6 mmol/L (137-145); TOTAL PROTEIN 6.6 g/dL (6.3-8.2)
[2018-09-23 16:59] LABS: CREATINE KINASE MB 0.5 ng/mL (<4.55); TROPONIN I 0.023 ng/mL
[2018-09-23 17:06] LABS: APPEARANCE,URINE CLEAR; BILIRUBIN,URINE NEGATIVE (NEGATIVE); COLOR,URINE COLORLESS; GLUCOSE, URINE NEGATIVE (NEGATIVE); KETONES,URINE NEGATIVE (NEGATIVE); LEUKOCYTE ESTERASE,URINE NEGATIVE (NEGATIVE); NITRITE,URINE NEGATIVE (NEGATIVE); PROTEIN,URINE 30 mg/dL (NEGATIVE); URINE SPECIFIC GRAVITY 1.005; UROBILINOGEN,URINE NEGATIVE mg/dL (<2.0)
[2018-09-23] MEDS: MAGNESIUM SULFATE/D5W 1 GM/100 ML RTUPB IV SCH ×2 (17:40→18:42)
--- NOTE | 2018-09-23 17:49 | RADIOLOGY REPORT (SQ) ---
EXAM DESCRIPTION: CHEST SINGLE VIEW COMPLETED DATE/TIME: 09/23/2018 5:16 pm REASON FOR STUDY: cough COMPARISON: 08/27/2018 EXAM PARAMETERS: NUMBER OF VIEWS: One view. TECHNIQUE: Single frontal radiographic view of the chest acquired. RADIATION DOSE: NA LIMITATIONS: None. FINDINGS: LUNGS AND PLEURA: There are interstitial infiltrates in both lung bases. Blunting of cost ophrenic angles suggests pleural effusions. MEDIASTINUM AND HILAR STRUCTURES: No masses. Contour normal. HEART AND VASCULAR STRUCTURES: The heart is normal with aortic atherosclerosis. BONES: No acute findings. HARDWARE: Port-A-Cath tip now proximal to SVC. OTHER: No other significant finding. IMPRESSION: Bibasilar interstitial infiltrates with pleural thickening or effusions. TECHNICAL DOCUMENTATION: JOB ID: [id number] 2010 [employer]- All Rights Reserved Reading location - IP/workstation name: [email or web address]
[2018-09-23] MEDS ORDERED: AZITHROMYCIN INJ 500 MG VIAL IV ONE (18:57)
[2018-09-23] MEDS ORDERED: LEVOFLOXACIN 750 MG/D5W RTU 750 MG/150 ML RTUPB IV ONE (19:22)
[2018-09-23] MEDS ORDERED: LABETALOL HCL INJ 20 MG/4 ML DISP.SYRIN IV ONE (20:02)
--- NOTE | 2018-09-23 20:08 | ER Document Report ---
ED Neuro Symptoms/Deficit - General Chief Complaint: Altered Mental Status Stated Complaint: CONFUSION, SHAKY Time Seen by Provider: 09/23/18 15:43 Primary Care Provider: Cole SYED MD [Primary Care Provider] - Follow up as needed Mode of Arrival: Wheelchair Information source: Relative - Cannot obtain history due to: Altered mental status TRAVEL OUTSIDE OF THE [place] IN LAST 30 DAYS: No - HPI Patient complains to provider of: Facial Droop - Left side, Other - Confusion Onset: This morning Exact time of onset: 8am this morning. Symptoms are: Constant Duration: Continues in ED, More than 3 hrs Quality of pain: No pain Severity: Moderate Pain Level: 3 Context: None Loss of consciousness: No loss of consciousness Was STROKE ALERT Called: No Baseline Cognitive: Alert, oriented X 3 Baseline Gait: Walks w/o assistance Alert To: Name/Voice Patient Orientation: Person, Place Character of altered mental status: Confused Vision problem/glaucoma: No Similar symptoms previously: No Recently seen / treated by doctor: Yes - Related Data Allergies/Adverse Reactions: Tetanus Vaccines and Toxoid Allergy (Unknown, Verified 08/27/18 01:49) peanut Allergy (Verified 09/23/18 20:13) Penicillins Allergy (Verified 08/27/18 01:49) Past Medical History - General Information source: Patient, Relative - Social History Smoking Status: Never Smoker Chew tobacco use (# tins/day): No Frequency of alcohol use: None Drug Abuse: None Family History: Reviewed & Not Pertinent Patient has suicidal ideation: No Patient has homicidal ideation: No - Past Medical History Cardiac Medical History: Reports: Hx Hypercholesterolemia, Hx Hypertension Denies: Hx Congestive Heart Failure, Hx Heart Attack Pulmonary Medical History: Reports: Hx Bronchitis Denies: Hx Asthma, Hx COPD, Hx Pneumonia, Hx Tuberculosis Neurological Medical History: Denies: Hx Seizures Renal/ Medical History: Denies: Hx End Stage Renal Disease, Hx Kidney Stones, Hx Peritoneal Dialysis Malignancy Medical History: Reports: Hx Lung Cancer, Hx Skin Cancer GI Medical History: Denies: Hx Cirrhosis, Hx Gastroesophageal Reflux Disease, Hx Ulcer Musculoskeletal Medical History: Reports Hx Arthritis, Denies Hx Multiple Sclerosis, Reports Hx Musculoskeletal Trauma Psychiatric Medical History: Denies: Hx Bipolar Disorder, Hx Depression, Hx Schizophrenia Past Surgical History: Reports: Hx Orthopedic Surgery, Hx Vascular Surgery - port accessed - Immunizations Hx Diphtheria, Pertussis, Tetanus Vaccination: Yes Review of Systems - Review of Systems Constitutional: No symptoms reported EENT: Other - left facial droop. Cardiovascular: No symptoms reported Respiratory: No symptoms reported Gastrointestinal: No symptoms reported Genitourinary: No symptoms reported Female Genitourinary: No symptoms reported Musculoskeletal: No symptoms reported Skin: No symptoms reported Hematologic/Lymphatic: No symptoms reported Neurological/Psychological: Confusion -: Yes All other systems reviewed and negative Physical Exam - Vital signs Vitals: Pulse Resp BP Pulse Ox 75 22 H 214/96 H 94 09/23/18 15:39 09/23/18 15:39 09/23/18 15:39 09/23/18 15:39 Interpretation: Normal - General General appearance: Appears well, Alert - HEENT Head: Normocephalic, Atraumatic Eyes: Normal Pupils: PERRL - Respiratory Respiratory status: No respiratory distress Chest status: Nontender Breath sounds: Normal Chest palpation: Normal - Cardiovascular Rhythm: Regular Heart sounds: Normal auscultation Murmur: No - Abdominal Inspection: Normal Distension: No distension Bowel sounds: Normal Tenderness: Nontender Organomegaly: No organomegaly - Back Back: Normal, Nontender - Extremities General upper extremity: Normal inspection, Nontender, Normal color, Normal ROM, Normal temperature General lower extremity: Normal inspection, Nontender, Normal color, Normal ROM, Normal temperature, Normal weight bearing. No: [place]'s sign - Neurological Neuro grossly intact: Yes Cognition: Confused Orientation: Disoriented to person, Disoriented to place [place] Coma Scale Eye Opening: Spontaneous [place] Coma Scale Verbal: Confused [place] Coma Scale Motor: Obeys Commands [place] Coma Scale Total: 14 Speech: Normal Cranial nerves: Normal Cerebellar coordination: No: Finger-nose rhombey Motor strength normal: LUE, RUE, LLE, RLE Additional motor exam normals: Equal fire inspector Sensory: Normal Notes: NIHSS = 4. - Psychological Associated symptoms: Normal affect, Normal mood - Skin Skin Temperature: Warm Skin Moisture: Dry Skin Color: Normal Course - Vital Signs Vital signs: Temp Pulse Resp BP Pulse Ox 70 13 228/101 H 92 09/23/18 16:08 09/23/18 19:16 09/23/18 19:16 09/23/18 19:16 - Laboratory Result Diagrams: 09/23/18 16:20 09/23/18 16:20 Laboratory results interpreted by me: 09/23/18 09/23/18 09/23/18 16:20 16:20 16:20 WBC 10.6 H RBC 3.20 L Hgb 10.4 L Hct 30.5 L RDW 21.1 H Seg Neutrophils % 79.3 H Lymphocytes % 9.0 L Absolute Neutrophils 8.4 H APTT BUN 25 H Creatinine 1.71 H Est GFR ( Amer) 36 L Est GFR (Non-Af Amer) 30 L Magnesium 0.8 L* ALT 8 L NT-Pro-B Natriuret Pep 08451 H Urine Protein Urine Blood 09/23/18 09/23/18 16:20 16:40 WBC RBC Hgb Hct RDW Seg Neutrophils % Lymphocytes % Absolute Neutrophils APTT 58.5 H BUN Creatinine Est GFR ( Amer) Est GFR (Non-Af Amer) Magnesium ALT NT-Pro-B Natriuret Pep Urine Protein 30 H Urine Blood SMALL H - Diagnostic Test Radiology reviewed: Reports reviewed - EKG Interpretation by Me EKG shows normal: Sinus rhythm Rate: Normal - 65 Rhythm: NSR When compared to previous EKG there are: No significant change Additional EKG results interpreted by me: 09/23/18 20:05 T wave inversion in the anterior and lateral leads. No STEMI. - Transfer of Care Notes: 09/23/18 20:05 I consulted the Neurologist pony worker at [facility] [address]. [facility]. Patient was accepted for transfer by the ER doctor, Dr Menchaca. Critical Care Note - Critical Care Note Total time excluding time spent on procedures (mins): 40 Discharge - Discharge Clinical Impression: Hypomagnesemia, HCAP (healthcare-associated pneumonia) CKD (chronic kidney disease) Qualifiers: Chronic kidney disease stage: unspecified stage Qualified Code(s): N18.9 - Chronic kidney disease, unspecified Altered mental status Qualifiers: Altered mental status type: unspecified Qualified Code(s): R41.82 - Altered mental status, unspecified Bilateral pneumonia Qualifiers: Pneumonia type: due to unspecified organism Lung location: lower lobe of lung Qualified Code(s): J18.1 - Lobar pneumonia, unspecified organism Condition: Stable Disposition: [facility] Referrals: Cole SYED MD [Primary Care Provider] - Follow up as needed
[2018-09-23] MEDS ORDERED: LABETALOL HCL INJ 200 MG/40 ML VIAL IV ONE (20:10)
[2018-09-23] MEDS ORDERED: VANCOMYCIN HCL INJ 1000 MG VIAL IV ONE (20:22)
[2018-09-23] MEDS ORDERED: NICARDIPINE HCL RTU, ISO-OS 20 MG/200 ML RTUINJ IV PRN (20:32)
[2018-09-23] MEDS ORDERED: FENTANYL CITRATE INJ/PF 100 MCG/2 ML AMPUL IV ONE (20:46)
[2018-09-23 21:36] VITALS: BP 141/81
--- NOTE | 2018-09-24 01:24 | EKG REPORT ---
SEVERITY:- ABNORMAL ECG - SINUS RHYTHM ABNORMAL T, PROBABLE ISCHEMIA, ANT-LAT LEADS : Confirmed by: Terrie Johns MD 24-Sep-2018 01:23:58
== END 2018-09-23 21:39 | disposition short-term general hospital (02) ==
LOC: ER 15:29
DX: J18.1 Lobar pneumonia, unspecified organism (principal); J18.8 Other pneumonia, unspecified organism; E83.42 Hypomagnesemia; I12.0 Hypertensive chronic kidney disease with stage 5 chronic kidney disease or end stage renal disease; N18.9 Chronic kidney disease, unspecified; R41.0 Disorientation, unspecified; R29.810 Facial weakness
CPT/HCPCS: 93005; 36415; 87040; 82553; 82962; 82550; 83735; 85025; 85610; 85730; 80053; 81001; 84484; 83880; 71045; 70450; 93010; A9270; J3010; J3490 ×2; J3475; J0456; J1956

== ENCOUNTER 2018-10-29 00:42 | Inpatient (IN) | payer MEDICARE, OTHER ==
[2018-10-29] MEDS ORDERED: FENTANYL CITRATE INJ/PF 100 MCG/2 ML AMPUL IV ONE (01:38)
--- NOTE | 2018-10-29 01:45 | ER Document Report ---
ED General - General Chief Complaint: Flank Pain Stated Complaint: FLANK PAIN Time Seen by Provider: 10/29/18 01:20 TRAVEL OUTSIDE OF THE [place] IN LAST 30 DAYS: No - HPI Notes: Patient is a 68-year-old female with a history of chronic kidney disease, stage IV lung cancer, and seizures who reports to the emergency department with a chief complaint of right flank pain. She reports that the pain started 2 days ago. Denies fever. Denies nausea vomiting or diarrhea. Denies abdominal pain. Denies chest pain. Denies shortness of breath. Patient last chemo 1 month ago. States that she has a PET scan scheduled by Dr. Fay at the end of this month, until then stopped. Patient takes [place] 7.5 mg as needed for pain at home. States that she normally takes 1 tab daily but due to the increased pain she has needed 3 tablets today which has not seemed to help. - Related Data Allergies/Adverse Reactions: Tetanus Vaccines and Toxoid Allergy (Unknown, Verified 10/29/18 05:15) peanut Allergy (Verified 10/29/18 05:15) Penicillins Allergy (Verified 10/29/18 05:15) Past Medical History - General Information source: Patient - Social History Smoking Status: Never Smoker Family History: Reviewed & Not Pertinent - Past Medical History Cardiac Medical History: Reports: Hx Hypercholesterolemia, Hx Hypertension Denies: Hx Congestive Heart Failure, Hx Heart Attack Pulmonary Medical History: Reports: Hx Bronchitis Denies: Hx Asthma, Hx COPD, Hx Pneumonia, Hx Tuberculosis Neurological Medical History: Denies: Hx Seizures Renal/ Medical History: Denies: Hx End Stage Renal Disease, Hx Kidney Stones, Hx Peritoneal Dialysis Malignancy Medical History: Reports: Hx Lung Cancer, Hx Skin Cancer GI Medical History: Denies: Hx Cirrhosis, Hx Gastroesophageal Reflux Disease, Hx Ulcer Musculoskeletal Medical History: Reports Hx Arthritis, Denies Hx Multiple Sclerosis, Reports Hx Musculoskeletal Trauma Psychiatric Medical History: Denies: Hx Bipolar Disorder, Hx Depression, Hx Schizophrenia Past Surgical History: Reports: Hx Orthopedic Surgery, Hx Vascular Surgery - port accessed - Immunizations Hx Diphtheria, Pertussis, Tetanus Vaccination: Yes Review of Systems - Review of Systems Constitutional: See HPI EENT: No symptoms reported Cardiovascular: No symptoms reported Respiratory: No symptoms reported Gastrointestinal: No symptoms reported Genitourinary: Flank pain - Right Musculoskeletal: Back pain Skin: No symptoms reported Hematologic/Lymphatic: No symptoms reported Neurological/Psychological: No symptoms reported Physical Exam - Vital signs Vitals: Temp Pulse Resp BP Pulse Ox 98.3 F 92 20 102/54 L 91 L 10/29/18 00:47 10/29/18 00:47 10/29/18 00:47 10/29/18 00:47 10/29/18 00:47 Interpretation: Hypoxic - Notes Notes: PHYSICAL EXAMINATION: GENERAL: Patient in mild distress related to pain. Nontoxic appearing. HEAD: Atraumatic, normocephalic. EYES: Pupils equal round and reactive to light, extraocular movements intact, sclera anicteric, conjunctiva are normal. ENT: nares patent, oropharynx clear without exudates. Moist mucous membranes. NECK: Normal range of motion, supple without lymphadenopathy LUNGS: Breath sounds clear to auscultation bilaterally and equal. No wheezes rales or rhonchi. HEART: Regular rate and rhythm without murmurs ABDOMEN: Soft, nontender, normoactive bowel sounds. No guarding, no rebound. No masses appreciated. Tenderness noted to right flank area. EXTREMITIES: Normal range of motion, no pitting or edema. No cyanosis. NEUROLOGICAL: No focal neurological deficits. Moves all extremities spontaneously and on command. PSYCH: Normal mood, normal affect. SKIN: Warm, Dry, normal turgor, no rashes or lesions noted. Course - Re-evaluation Re-evalutation: 10/29/18 03:43 Upon reassessment patient reports that pain medication that had been given his helps for a few minutes but then wears off. Updated patient and note on results of blood work and urine specimen. Due to patient's significant pain CT of the chest and abdomen ordered at this time as well as additional pain medication. 10/29/18 04:[address] Luna called myself to report that patient has a moderate sized pulmonary embolus in the right lower lung with either pneumonia or pulmonary infarct in the right lower lobe and a small to moderate sized right pleural effusion. It was also noted that the gallbladder had an abnormal appearance with dilatation of the common bile duct and ultrasound is recommended in the right upper quadrant. Due to the patient's need for anticoagulation, CT of the head to be obtained prior to starting medication. Coags and troponin added on to lab work. Gallbladder ordered per radiologist recommendations. Discussed radiology findings with patient and . Patient adamant that she not be transferred to a another facility, "states I do not want to go to another hospital." Patient also very adamant that she would not want surgery. Patient continues to complain of right flank pain. 10/29/[address] of the head impression reports no suspicious interval change. No large mass or bleed noted. Discussed patient's findings with Dr. Duncan, who is in agreement with the testing that has been done in the emergency department. Agrees that patient needs anticoagulation as well as a hospitalist consult. Spoke with Dr. Gentile, who accepts patient to the hospitalist service. After reviewing patient chart, Dr. Gentile recommends placing patient on Lovenox as her anticoagulant. Discussed the findings and admission status with patient and . Patient agrees to be admitted at this hospital. Patient once again mentions that she does not want to be transferred to another hospital. She has been tolerating IV morphine. - Vital Signs Vital signs: Temp Pulse Resp BP Pulse Ox 98.8 F 92 13 169/72 H 98 10/29/18 06:31 10/29/18 00:47 10/29/18 07:00 10/29/18 07:00 10/29/18 07:00 - Laboratory Result Diagrams: 10/29/18 01:37 10/29/18 01:37 Laboratory results interpreted by me: 10/29/18 10/29/18 10/29/18 01:37 01:37 01:37 RBC 2.72 L Hgb 9.3 L Hct 28.4 L MCV 104 H MCH 34.3 H RDW 18.1 H Plt Count 111 L Seg Neuts % (Manual) 88 H Lymphocytes % (Manual) 4 L Abs Neuts (Manual) 8.6 H Abs Lymphs (Manual) 0.4 L APTT 42.8 H Chloride 114 H Carbon Dioxide 16 L BUN 29 H Creatinine 1.58 H Est GFR ( Amer) 39 L Est GFR (Non-Af Amer) 32 L Total Protein 5.3 L Albumin 2.6 L Urine Protein Urine Blood 10/29/18 02:52 RBC Hgb Hct MCV MCH RDW Plt Count Seg Neuts % (Manual) Lymphocytes % (Manual) Abs Neuts (Manual) Abs Lymphs (Manual) APTT Chloride Carbon Dioxide BUN Creatinine Est GFR ( Amer) Est GFR (Non-Af Amer) Total Protein Albumin Urine Protein 30 H Urine Blood MODERATE H Patient's anemia baseline when compared to previous visits. She does not have a white count. Urinalysis negative for leukocytes or nitrites. Her BUN and creatinine slightly elevated patient was given a 500 cc normal saline bolus during her visit in the emergency department. - Diagnostic Test Radiology reviewed: Image reviewed, Reports reviewed Discharge - Discharge Clinical Impression: Hypoxia, Back pain Pulmonary embolism Qualifiers: Pulmonary embolism type: other Chronicity: acute Acute cor pulmonale presence: without acute cor pulmonale Qualified Code(s): I26.99 - Other pulmonary embolism without acute cor pulmonale Lung cancer Qualifiers: Laterality: right Condition: Stable Disposition: ADMITTED INPATIENT Admitting Provider: Seferino (Hospitalist) Unit Admitted: [facility]
[2018-10-29 01:48] LABS: HEMATOCRIT 28.4 % (36.0-47.0); HEMOGLOBIN 9.3 g/dL (12.0-15.5); MEAN CORPUSCULAR HEMOGLOBIN 34.3 pg (27.0-33.4); MEAN CORPUSCULAR HGB CONC 32.8 g/dL (32.0-36.0); MEAN CORPUSCULAR VOLUME 104 fl (80-97); PLATELET COUNT 111 10^3/uL (150-450); RED BLOOD COUNT 2.72 10^6/uL (3.72-5.28); RED CELL DISTRIBUTION WIDTH 18.1 % (11.5-14.0); WHITE BLOOD COUNT 9.8 10^3/uL (4.0-10.5)
[2018-10-29 02:02] LABS: ABSOLUTE LYMPHOCYTES# (MANUAL) 0.4 10^3/uL (0.5-4.7); ABSOLUTE MONOCYTES # (MANUAL) 0.7 10^3/uL (0.1-1.4); ABSOLUTE NEUTROPHILS# (MANUAL) 8.6 10^3/uL (1.7-8.2); BASOPHILS % (MANUAL) 1 % (0-2); EOSINOPHILS % (MANUAL) 0 % (0-6); LYMPHOCYTES % (MANUAL) 4 % (13-45); MONOCYTES % (MANUAL) 7 % (3-13); SEGMENTED NEUTROPHILS % (MAN) 88 % (42-78); TOTAL CELLS COUNTED 100
[2018-10-29 02:03] LABS: PLATELET COMMENT DECREASED
[2018-10-29 02:06] LABS: ALANINE AMINOTRANSFERASE 21 U/L (9-52); ALBUMIN 2.6 g/dL (3.5-5.0); ALKALINE PHOSPHATASE 71 U/L (38-126); ANION GAP 9 (5-19); ANISOCYTOSIS 1+; ASPARTATE AMINO TRANSFERASE 16 U/L (14-36); BILIRUBIN,DIRECT 0.3 mg/dL (0.0-0.4); BILIRUBIN,TOTAL 0.4 mg/dL (0.2-1.3); BLOOD UREA NITROGEN 29 mg/dL (7-20); CALCIUM 8.4 mg/dL (8.4-10.2); CARBON DIOXIDE 16 mmol/L (22-30); CHLORIDE 114 mmol/L (98-107); GLUCOSE 105 mg/dL (75-110); OVALOCYTES 1+; POTASSIUM 4.7 mmol/L (3.6-5.0); SODIUM 138.6 mmol/L (137-145); TEAR DROP CELLS 1+; TOTAL PROTEIN 5.3 g/dL (6.3-8.2)
[2018-10-29] MEDS ORDERED: MORPHINE SULFATE 10 MG/ML INJ IV ONE ×4 (02:35→06:38)
[2018-10-29] MEDS ORDERED: NORMAL SALINE 1000 ML 500 ML IV ONE (02:36)
--- NOTE | 2018-10-29 02:37 | RADIOLOGY REPORT (SQ) ---
EXAM DESCRIPTION: XR CHEST 2 VIEWS COMPLETED DATE/TME: 10/29/2018 01:31 CLINICAL HISTORY: 68 years Female, hypoxia COMPARISON: 09/23/18, 08/27/18 NUMBER OF VIEWS/TECHNIQUE: 2, Frontal, Lateral FINDINGS: Small right basilar opacity-effusion, mild interstitial markings, normal cardiac silhouette, and scoliotic curvature. Adequate appearing left jugular central line. Atherosclerotic vascular disease. IMPRESSION: No interval change. Small right basilar opacity with effusion. Recommend CR/CT surveillance including at 7-12 weeks following initiation of any clinically warranted therapy.
[2018-10-29 03:24] LABS: APPEARANCE,URINE SLIGHTLY-CLOUDY; BILIRUBIN,URINE NEGATIVE (NEGATIVE); COLOR,URINE YELLOW; GLUCOSE, URINE NEGATIVE (NEGATIVE); KETONES,URINE NEGATIVE (NEGATIVE); LEUKOCYTE ESTERASE,URINE NEGATIVE (NEGATIVE); NITRITE,URINE NEGATIVE (NEGATIVE); PROTEIN,URINE 30 mg/dL (NEGATIVE); URINE SPECIFIC GRAVITY 1.018; UROBILINOGEN,URINE NEGATIVE mg/dL (<2.0)
--- NOTE | 2018-10-29 04:42 | RADIOLOGY REPORT (SQ) ---
CT chest, abdomen and pelvis with contrast on 10/29/2018 at 4:03 AM CLINICAL INDICATION: History of lung cancer, back pain, hypoxia TECHNIQUE: Multiple axial images are obtained throughout the chest, abdomen and pelvis following the administration of IV contrast. This exam was performed according to our departmental dose-optimization program, which includes automated exposure control, adjustment of the mA and/or kV according to patient size and/or use of iterative reconstruction technique. Total DLP is 1342.3 mGy*cm. COMPARISON: PET/CT from 08/19/2018 FINDINGS: CHEST: There has been development of a small to moderate-sized right pleural effusion with some fluid also tracking along the fissure plane. There is moderate size filling defect in the right descending pulmonary artery extending into the right lower lobe pulmonary artery consistent with pulmonary embolus. There is airspace opacity in the right lower lobe that could represent pneumonia but also could represent developing pulmonary infarct. There is minimal left basilar atelectasis. Emphysematous changes of the lungs are noted. There is a small rounded lucency in the medial right lower lobe that may represent small developing area of cavitation or possibly early lung abscess. The lungs are otherwise clear. There is no left pleural effusion. There is a trace pericardial effusion. There is no thoracic adenopathy. Coronary artery calcifications and other vascular calcifications are noted. Degenerative changes are noted in the spine. No acute bony abnormality of the thorax is noted. ABDOMEN: Gallbladder is mildly distended with possible mild gallbladder wall thickening. There is also dilatation of the common duct measuring up to 1 cm. Would recommend correlation with right upper quadrant ultrasound. The solid abdominal organs are otherwise unremarkable. There is no abdominal adenopathy. Vascular calcifications are noted. There is no free fluid or free air within the abdomen. The abdominal portion of the GI tract is unremarkable. Pelvis: Unknown implanted device is noted in the vagina, please correlate clinically. There is mild diverticulosis. Pelvic portion of the GI tract is otherwise unremarkable. There is no free fluid in the pelvis. There is no pelvic adenopathy. Degenerative changes are noted in the spine. No definite bony metastatic lesion is noted. There is mild dextroscoliosis of the lumbar spine. IMPRESSION: 1. Moderate-sized pulmonary embolus in the right lower lung with either pneumonia or pulmonary infarct in the right lower lobe and small to moderate-sized right pleural effusion. Lien Conklin, nurse practitioner in the ER taking care of the patient, was made aware of this finding by myself by phone on 10/29/2018 at 3:39 AM. 2. Abnormal appearance of the gallbladder with dilatation of the common duct, recommend follow-up right upper quadrant ultrasound. 3. Mild diverticulosis.
[2018-10-29 05:11] LABS: INTERNATIONAL RATION (INR) 1.04; PROTHROMBIN TIME 14.1 SEC (11.4-15.4)
[2018-10-29 05:12] LABS: PARTIAL THROMBOPLASTIN TIME 42.8 SEC (23.5-35.8)
--- NOTE | 2018-10-29 06:07 | RADIOLOGY REPORT (SQ) ---
EXAM DESCRIPTION: CT HEAD WITHOUT IV CONTRAST COMPLETED DATE/TME: 10/29/2018 00:00 CLINICAL HISTORY: 68 years Female, EVAL FOR METS COMPARISON:Sep 23 2018. MRI, January 29, 2018. CT PET, March 11, 2018. TECHNIQUE: No contrast. Coronal and sagittal reformat. This exam was performed according to our departmental dose-optimization program, which includes automated exposure control, adjustment of the mA and/or kV according to patient size and/or use of iterative reconstruction technique. FINDINGS: No hemorrhage. Large left frontal gliosis/infarct, moderate confluent and heterogeneous white matter microangiopathy or other white matter process, left more than right. No mass, mass effect, or midline shift. Atherosclerosis. 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 Brain and extra-axial structures appear otherwise intact. Stable. IMPRESSION: No suspicious interval change. Note: Noncontrast CT is not sensitive for evaluation of possible metastatic disease, as queried. Consider further evaluation with contrast-enhanced MRI or contrast CT.
--- NOTE | 2018-10-29 06:39 | RADIOLOGY REPORT (SQ) ---
EXAM DESCRIPTION: US ABDOMEN LIMITED COMPLETED DATE/TME: 10/29/2018 04:44 CLINICAL HISTORY: 68 years, Female, ABNORMAL CT COMPARISON: None. TECHNIQUE: Grayscale and Doppler images of the abdomen. LIMITATIONS: None. FINDINGS: The visualized portions of the pancreas and aorta appear unremarkable. The liver measures 15 cm in cc dimension with normal echotexture. The main portal vein demonstrates normal hepatopedal flow. Cholelithiasis is noted. There is no wall thickening fluid. No sonographic Mayer sign was elicited. The common bile duct is normal in caliber measuring up to 1 mm in size. The right kidney is echogenic and measures 11.2 x 4.9 x 5.0 cm. No hydronephrosis. Fluid is noted. IMPRESSION: Cholelithiasis without evidence of acute cholecystitis. Echogenic right kidney, likely due to chronic medical renal disease. copyright 2010 [employer]- All Rights Reserved
[2018-10-29] MEDS: ENOXAPARIN SODIUM INJ 80 MG/0.8 ML DISP.SYRIN SUBCUT SCH ×3 (07:14→17:48)
[2018-10-29] MEDS ORDERED: OXYCODONE-ACETAMINOPHEN 5-325 MG TABLET PO PRN (09:10)
[2018-10-29] MEDS ORDERED: PROCHLORPERAZINE MALEATE 10 MG TABLET PO PRN (09:14)
[2018-10-29] MEDS ORDERED: ALPRAZOLAM 0.5 MG TABLET PO PRN (09:14)
[2018-10-29] MEDS ORDERED: NITROGLYCERIN 0.4 MG/TAB 25 TAB/BOTTLE SL PRN (09:14)
[2018-10-29] MEDS ORDERED: HYDROCODONE/ACETAMINOPHEN 7.5-325 MG TABLET PO PRN (09:41)
[2018-10-29] MEDS ORDERED: (PENDING PHARMACY ID) (Potassium Chloride [Klor-Con M20] 20 MEQ) PO SCH (10:00)
[2018-10-29] MEDS ORDERED: (PENDING PHARMACY ID) (Bupropion Hcl [Bupropion Xl] 300 MG) PO SCH (10:00)
[2018-10-29] MEDS: MAGNESIUM OXIDE 400 MG TABLET PO SCH (11:17)
[2018-10-29] MEDS: METOPROLOL TARTRATE 50 MG TABLET PO SCH ×2 (11:17→21:46)
[2018-10-29] MEDS: POTASSIUM CHLORIDE 10 MEQ CAPSULE.ER PO SCH (11:18)
[2018-10-29] MEDS: PANTOPRAZOLE SODIUM 40 MG TABLET.DR PO SCH (11:18)
[2018-10-29] MEDS: FEBUXOSTAT 80 MG TABLET PO SCH (11:18)
[2018-10-29] MEDS: FOLIC ACID 1 MG TABLET PO SCH (11:18)
[2018-10-29] MEDS: VERAPAMIL HCL 240 MG TABLET.SA PO SCH ×2 (11:18→21:46)
[2018-10-29] MEDS ORDERED: HYDROCODONE/ACETAMINOPHEN 7.5-325 MG TABLET PO ONE (12:52)
[2018-10-29] MEDS: BUPROPION HCL 100 MG TABLET PO SCH ×2 (14:56→21:46)
[2018-10-29] MEDS: PHENYTOIN SODIUM EXTENDED 100 MG CAPSULE PO SCH ×2 (14:56→21:46)
[2018-10-29] MEDS: HYDROCODONE/ACETAMINOPHEN 7.5-325 MG TABLET PO PRN ×2 (17:53→23:53)
--- NOTE | 2018-10-29 18:23 | PDOC H&P ---
History of Present Illness Admission Date/PCP: 10/29/18 07:08 MAY NEWTON DO History of Present Illness: ONI ELISE is a 68 year old female with a history of stage IV lung cancer, stage III chronic kidney disease, and COPD who presented with right flank pain which is been going on for about 2-3 days and have been getting progressively worse. She was having some worsening pain with inspiration. She has pain medicine at home and was taking it and initially it was helping but eventually got to the point where her pain medicine was not controlling it. She decided to come in to be evaluated. Her troponins were negative she did have any EKG changes, but she was noted to have pulmonary embolus on the right side of her chest on chest CT. She was on 2 L of oxygen which she is on at home but her oxygen saturations were still a little bit on the low side even on 2 L. She was admitted for further management. Past Medical History Cardiac Medical History: Reports: Hyperlipidema, Hypertension Denies: Congestive Heart Failure, Myocardial Infarction Pulmonary Medical History: Reports: Bronchitis Denies: Asthma, Chronic Obstructive Pulmonary Disease (COPD), Pneumonia, Tuberculosis Neurological Medical History: Denies: Seizures Renal/ Medical History: Denies: End Stage Renal Disease Malignancy Medical History: Reports: Lung Cancer, Skin Cancer GI Medical History: Denies: Cirrhosis, Gastroesophageal Reflux Disease Musculoskeltal Medical History: Reports: Arthritis Psychiatric Medical History: Denies: Bipolar Disorder, Depression Hematology: Reports: Anemia Denies: Bleeding Tendencies Past Surgical History Past Surgical History: Reports: Orthopedic Surgery, Vascular Surgery - port accessed Social History Smoking Status: Former Smoker Number of Years Smokin Frequency of Alcohol Use: Rare Hx Recreational Drug Use: No Drugs: None - Advance Directive Resuscitation Status: Full Code Family History Family History: Reviewed & Not Pertinent Parental Family History Reviewed: Yes - Coronary artery disease Children Family History Reviewed: Yes - None known Sibling(s) Family History Reviewed.: Yes - Hypertension, coronary artery disease Medication/Allergy Home Medications: Alendronate Sodium [Fosamax 70 mg Tablet] 70 mg PO TONG@0600 10/29/18 Alprazolam [Xanax 0.5 mg Tablet] 1 mg PO Q12 10/29/18 Atorvastatin Calcium [Lipitor 80 mg Tablet] 80 mg PO QHS 10/29/18 Bupropion HCl [Bupropion Xl] 300 mg PO DAILY 10/29/18 Febuxostat [Uloric 80 mg Tablet] 80 mg PO DAILY 10/29/18 Folic Acid [Folvite 1 mg Tablet] 1 mg PO DAILY 10/29/18 Hydrocodone/Acetaminophen [[place] 7.5-325 mg Tablet] 1 tab PO Q8HP PRN 10/29/18 Magnesium Oxide [Mag-Ox 400 mg Tablet] 400 mg PO DAILY 10/29/18 Metoprolol Tartrate [Lopressor 50 mg Tablet] 50 mg PO Q12 10/29/18 Nitroglycerin [Nitrostat 0.4 mg (1/150 Gr) Tabs 25/Bottle] 1 tab SL Q5MP PRN 10/29/18 Pantoprazole Sodium [Protonix [address] Tablet] 40 mg PO QAM 10/29/18 Phenytoin Sodium Extended [Dilantin 100 mg Capsule.er] 100 mg PO Q8 10/29/18 Potassium Chloride [Klor-Con M20] 20 meq PO DAILY 10/29/18 Prochlorperazine Maleate [Compazine 10 mg Tablet] 10 mg PO Q6HP PRN 10/29/18 Ranitidine HCl [Zantac 150 mg Tablet] 150 mg PO BID 10/29/18 Verapamil HCl [Verapamil ER] 240 mg PO Q12 10/29/18 Allergies/Adverse Reactions: Tetanus Vaccines and Toxoid Allergy (Unknown, Verified 10/29/18 05:15) peanut Allergy (Verified 10/29/18 05:15) Penicillins Allergy (Verified 10/29/18 05:15) Review of Systems All systems: reviewed and no additional remarkable complaints except as stated - All systems were reviewed and were negative except as noted in the HPI Physical Exam Vital Signs: Temp Pulse Resp BP Pulse Ox 97.4 F 81 18 148/68 H 98 10/29/18 17:32 10/29/18 17:32 10/29/18 17:32 10/29/18 17:32 10/29/18 17:32 Intake & Output 10/28/18 10/29/18 10/30/18 06:59 06:59 06:59 Intake Total 500 150 Output Total 400 Balance 500 -250 Weight 69.853 kg General appearance: PRESENT: no acute distress, cooperative, disheveled Head exam: PRESENT: atraumatic, normocephalic Eye exam: PRESENT: EOMI, PERRLA. ABSENT: conjunctival injection, nystagmus, scleral icterus Ear exam: PRESENT: normal external ear exam Mouth exam: PRESENT: moist, neck supple Teeth exam: PRESENT: poor dentation Throat exam: ABSENT: post pharyngeal erythema Neck exam: PRESENT: full ROM. ABSENT: carotid bruit, JVD, lymphadenopathy, meni ngismus, tenderness, thyromegaly Respiratory exam: PRESENT: clear to auscultation davide, decreased breath sounds, symmetrical, unlabored. ABSENT: accessory muscle use, chest wall tenderness, crackles, prolonged expiratory phas, rhonchi, tachypnea, wheezes Cardiovascular exam: PRESENT: RRR, +S1, +S2, systolic murmur - 2/6, loudest at the left upper sternal border Pulses: PRESENT: normal carotid pulses Vascular exam: PRESENT: normal capillary refill GI/Abdominal exam: PRESENT: normal bowel sounds, soft. ABSENT: distended, guarding, rebound, tenderness Extremities exam: ABSENT: clubbing, pedal edema Musculoskeletal exam: PRESENT: normal inspection. ABSENT: deformity Neurological exam: PRESENT: alert, awake, oriented to person, oriented to place, oriented to time, oriented to situation, CN II-XII grossly intact. ABSENT: motor sensory deficit Psychiatric exam: PRESENT: appropriate affect, normal mood Skin exam: PRESENT: dry, warm Results Laboratory Results: 10/29/18 01:37 10/29/18 01:37 10/29/18 10/29/18 10/29/18 01:37 01:37 02:52 WBC 9.8 RBC 2.72 L Hgb 9.3 L Hct 28.4 L MCV 104 H MCH 34.3 H MCHC 32.8 RDW 18.1 H Plt Count 111 L Seg Neutrophils % Not Reportable Lymphocytes % Not Reportable Monocytes % Not Reportable Eosinophils % Not Reportable Basophils % Not Reportable Absolute Neutrophils Not Reportable Absolute Lymphocytes Not Reportable Absolute Monocytes Not Reportable Absolute Eosinophils Not Reportable Absolute Basophils Not Reportable Sodium 138.6 Potassium 4.7 Chloride 114 H Carbon Dioxide 16 L Anion Gap 9 BUN 29 H Creatinine 1.58 H Est GFR ( Amer) 39 L Est GFR (Non-Af Amer) 32 L Glucose 105 Calcium 8.4 Total Bilirubin 0.4 AST 16 ALT 21 Alkaline Phosphatase 71 Total Protein 5.3 L Albumin 2.6 L Urine Color YELLOW Urine Appearance SLIGHTLY-CLOUDY Urine pH 5.0 Ur Specific [place] 1.018 Urine Protein 30 H Urine Glucose (UA) NEGATIVE Urine Ketones NEGATIVE Urine Blood MODERATE H Urine Nitrite NEGATIVE Ur Leukocyte Esterase NEGATIVE Urine WBC (Auto) 4 Urine RBC (Auto) 12 10/29/18 01:37 Troponin I < 0.012 Impressions: Chest X-Ray 10/29/18 01:31 IMPRESSION: No interval change. Small right basilar opacity with effusion. Recommend CR/CT surveillance including at 7-12 weeks following initiation of any clinically warranted therapy. Chest CT 10/29/18 03:37 IMPRESSION: 1. Moderate-sized pulmonary embolus in the right lower lung with either pneumonia or pulmonary infarct in the right lower lobe and small to moderate-sized right pleural effusion. Lien Conklin, nurse practitioner in the ER taking care of the patient, was made aware of this finding by myself by phone on 10/29/2018 at 3:39 AM. 2. Abnormal appearance of the gallbladder with dilatation of the common duct, recommend follow-up right upper quadrant ultrasound. 3. Mild diverticulosis. Abdomen/Pelvis CT 10/29/18 03:38 IMPRESSION: 1. Moderate-sized pulmonary embolus in the right lower lung with either pneumonia or pulmonary infarct in the right lower lobe and small to moderate-sized right pleural effusion. Lien Conklin, nurse practitioner in the ER taking care of the patient, was made aware of this finding by myself by phone on 10/29/2018 at 3:39 AM. 2. Abnormal appearance of the gallbladder with dilatation of the common duct, recommend follow-up right upper quadrant ultrasound. 3. Mild diverticulosis. Abdomen Ultrasound 10/29/18 04:44 IMPRESSION: Cholelithiasis without evidence of acute cholecystitis. Echogenic right kidney, likely due to chronic medical renal disease. copyright 2010 [employer]- All Rights Reserved Assessment and Plan - Diagnosis (1) Pulmonary embolism Qualifiers: Pulmonary embolism type: other Chronicity: acute Acute cor pulmonale presence: without acute cor pulmonale Qualified Code(s): I26.99 - Other pulmonary embolism without acute cor pulmonale Is this a current diagnosis for this admission?: Yes Plan: We will start her on some subcutaneous Lovenox. She should probably do okay with this for a couple of days and be able to transition to an agent like Eliquis or Xarelto. Troponins are negative. No sign of heart strain. We will leave her on some oxygen. We will keep her on telemetry. (2) Hypoxia Is this a current diagnosis for this admission?: Yes Plan: Supplemental O2 to maintain SPO2 greater than 90%. (3) Lung cancer Qualifiers: Laterality: right Lung location: middle lobe of lung Qualified Code(s): C34.2 - Malignant neoplasm of middle lobe, bronchus or lung Is this a current diagnosis for this admission?: Yes Plan: She was getting chemo, last treatment about 1 month ago. She will follow-up with oncology as an outpatient. - Time Time Spent with patient: 35 or more minutes - Inpatient Certification Medical Necessity: Significant Comorbidiites Make Outpatient Treatment Too Risky, Need Close Monitoring Due to Risk of Patient Decompensation, Need For Continuous Telemetry Monitoring
--- NOTE | 2018-10-29 18:24 | ADVANCED CARE ---
- Diagnosis (1) Pulmonary embolism Diagnosis Current: Yes (2) Hypoxia Diagnosis Current: Yes Resuscitation Status: Full Code Discussion: Patient states she feels like she still has a good quality of life and she wants a chance to fight her cancer and wants everything to be done at this point to prolong her life. Time Spent: 10
[2018-10-29] MEDS: ATORVASTATIN CALCIUM 80 MG TABLET PO SCH (21:46)
[2018-10-30] MEDS: BUPROPION HCL 100 MG TABLET PO SCH ×3 (05:10→21:58)
[2018-10-30] MEDS: PHENYTOIN SODIUM EXTENDED 100 MG CAPSULE PO SCH ×3 (05:10→21:58)
[2018-10-30] MEDS: ENOXAPARIN SODIUM INJ 80 MG/0.8 ML DISP.SYRIN SUBCUT SCH ×2 (05:11→18:02)
[2018-10-30] MEDS: HYDROCODONE/ACETAMINOPHEN 7.5-325 MG TABLET PO PRN ×5 (05:46→21:58)
[2018-10-30 05:50] LABS: ANION GAP 8 (5-19); BLOOD UREA NITROGEN 25 mg/dL (7-20); CALCIUM 8.7 mg/dL (8.4-10.2); CARBON DIOXIDE 18 mmol/L (22-30); CHLORIDE 114 mmol/L (98-107); GLUCOSE 92 mg/dL (75-110); POTASSIUM 4.8 mmol/L (3.6-5.0); SODIUM 139.5 mmol/L (137-145)
--- NOTE | 2018-10-30 08:59 | PDOC PROGRESS REPORT ---
Subjective Progress Note for:: 10/30/18 Subjective:: ONI ELISE is a 68 year old female with a history of stage IV lung cancer (receiving chemotherapy as outpatient), CKD not seen by fourth mate, COPD and chronic right upper quadrant flank pain who presented with worsening right flank pain which is been going on for about 2-3 days, worsening pain with inspiration. She has pain medicine at home and was taking it and initially it was helping but eventually got to the point where her pain medicine was not controlling it. Her troponins were negative she did have any EKG changes, but she was noted to have pulmonary embolus on the right side of her chest on chest CT. She was on 2 L of oxygen which she is on at home but her oxygen saturations were still a little bit on the low side even on 2 L. She was admitted for further management. 10/30/2018. No acute events overnight. Patient still having right upper quadrant abdominal pain, worse with movement and palpation. Patient has positive finding of on the CT chronic cholecystitis . She has been having right upper quadrant abdominal pain for a while and is aware that she has some problem with her gallbladder but has not been evaluated by surgery for possible cholecystectomy because of fear of spreading her lung cancer. She is adamantly against cholecystectomy stating that if she is opened up her lung cancer be spread everywhere. She mentions that her mom also had cancer and after having a surgery. She was advised on the need for surgical consultation as her chronic right upper quadrant abdominal pain could be due to her chronic cholecystitis, initially she was adamantly refusing any idea of surgical evaluation but after counseling her extensively she decided to talk to her and contact her oncologist and find out if her suspicions are true. After talking to her and contacting her oncologist she was reassured by her oncologist that having a cholecystectomy will not affect her underlying lung cancer. She agreed for surgical consult. Denies any fever, chills, nausea, vomiting, diarrhea, constipation. Planing of persistent right upper quadrant abdominal pain worse with movement, nonradiating, 3/5 on severity scale. Reason For Visit: PULMONARY EMBOLUS,PULMONARY INFARCT Physical Exam Vital Signs: Temp Pulse Resp BP Pulse Ox 97.8 F 83 16 151/72 H 96 10/30/18 07:42 10/30/18 07:42 10/30/18 07:42 10/30/18 07:42 10/30/18 07:42 Intake & Output 10/29/18 10/30/18 10/31/18 06:59 06:59 06:59 Intake Total 500 400 Output Total 900 Balance 500 -500 Weight 69.853 kg 68.5 kg General appearance: PRESENT: no acute distress, well-developed, well-nourished Head exam: PRESENT: atraumatic, normocephalic Respiratory exam: PRESENT: clear to auscultation davide. ABSENT: rales, rhonchi, wheezes Cardiovascular exam: PRESENT: RRR. ABSENT: diastolic murmur, rubs, systolic murmur GI/Abdominal exam: PRESENT: guarding, Mayer's sign, normal bowel sounds, soft, tenderness - Upper quadrant.. ABSENT: distended, mass, organolmegaly, rebound Extremities exam: PRESENT: full ROM. ABSENT: calf tenderness, clubbing, pedal edema Psychiatric exam: PRESENT: appropriate affect, normal mood. ABSENT: homicidal ideation, suicidal ideation Results Laboratory Results: 10/29/18 01:37 10/30/18 05:20 10/30/18 05:20 Sodium 139.5 Potassium 4.8 Chloride 114 H Carbon Dioxide 18 L Anion Gap 8 BUN 25 H Creatinine 1.41 H Est GFR ( Amer) 45 L Est GFR (Non-Af Amer) 37 L Glucose 92 Calcium 8.7 10/29/18 01:37 Troponin I < 0.012 Impressions: Chest X-Ray 10/29/18 01:31 IMPRESSION: No interval change. Small right basilar opacity with effusion. Recommend CR/CT surveillance including at 7-12 weeks following initiation of any clinically warranted therapy. Chest CT 10/29/18 03:37 IMPRESSION: 1. Moderate-sized pulmonary embolus in the right lower lung with either pneumonia or pulmonary infarct in the right lower lobe and small to moderate-sized right pleural effusion. Lien Conklin, nurse practitioner in the ER taking care of the patient, was made aware of this finding by myself by phone on 10/29/2018 at 3:39 AM. 2. Abnormal appearance of the gallbladder with dilatation of the common duct, recommend follow-up right upper quadrant ultrasound. 3. Mild diverticulosis. Abdomen/Pelvis CT 10/29/18 03:38 IMPRESSION: 1. Moderate-sized pulmonary embolus in the right lower lung with either pneumonia or pulmonary infarct in the right lower lobe and small to moderate-sized right pleural effusion. Lien Conklin, nurse practitioner in the ER taking care of the patient, was made aware of this finding by myself by phone on 10/29/2018 at 3:39 AM. 2. Abnormal appearance of the gallbladder with dilatation of the common duct, recommend follow-up right upper quadrant ultrasound. 3. Mild diverticulosis. Abdomen Ultrasound 10/29/18 04:44 IMPRESSION: Cholelithiasis without evidence of acute cholecystitis. Echogenic right kidney, likely due to chronic medical renal disease. copyright 2010 [employer]- All Rights Reserved Assessment and Plan - Diagnosis (1) Pulmonary embolism Qualifiers: Pulmonary embolism type: other Chronicity: acute Acute cor pulmonale presence: without acute cor pulmonale Qualified Code(s): I26.99 - Other pulmonary embolism without acute cor pulmonale Is this a current diagnosis for this admission?: Yes Plan: Provoked. Likely due to underlying malignancy. Continue therapeutic Lovenox to be switched to NOACs. Troponins are negative. EKG normal sinus rhythm. Continue supplemental oxygen. Continue to monitor. Monitor vitals. (2) Chronic cholecystitis Is this a current diagnosis for this admission?: Yes Plan: Based on physical examination and abnormal CT finding. 10/29/2018 CT abdomen showed abnormal appearance of the gallbladder with dilatation of the common duct. Consult surgery. Pending recommendation. Started on empiric IV antibiotics. (3) Lung cancer Qualifiers: Laterality: right Lung location: middle lobe of lung Qualified Code(s): C34.2 - Malignant neoplasm of middle lobe, bronchus or lung Is this a current diagnosis for this admission?: Yes Plan: On chemotherapy as outpatient. Patient has established oncology care as outpatient. (4) CKD (chronic kidney disease) stage 3, GFR 30-59 ml/min Is this a current diagnosis for this admission?: No Plan: Likely due to chemotherapy. Creatinine stable. Electrolytes within normal limits. Nonuremic. Nonoliguric. Electrolytes and volume status. Outpatient nephrology and PCP follow-up. Avoid NSAIDs and nephrotoxic agents.
[2018-10-30] MEDS: ACETAMINOPHEN 325 MG TABLET PO PRN ×3 (09:17→19:46)
[2018-10-30] MEDS: PANTOPRAZOLE SODIUM 40 MG TABLET.DR PO SCH (09:20)
[2018-10-30] MEDS: VERAPAMIL HCL 240 MG TABLET.SA PO SCH ×2 (09:20→21:58)
[2018-10-30] MEDS: METOPROLOL TARTRATE 50 MG TABLET PO SCH ×2 (09:21→21:58)
[2018-10-30] MEDS: POTASSIUM CHLORIDE 10 MEQ CAPSULE.ER PO SCH (09:49)
[2018-10-30] MEDS ORDERED: LEVOFLOXACIN 750 MG/D5W RTU 750 MG/150 ML RTUPB IV SCH (10:00)
[2018-10-30] MEDS: FOLIC ACID 1 MG TABLET PO SCH (10:41)
[2018-10-30] MEDS: MAGNESIUM OXIDE 400 MG TABLET PO SCH (10:41)
[2018-10-30] MEDS ORDERED: DEXTROSE 50%-WATER 25 GM/50 ML DISP.SYRIN IV PRN ×2 (11:27)
[2018-10-30] MEDS ORDERED: GLUCAGON,HUMAN RECOMB 1 MG INJ SUBCUT PRN (11:27)
[2018-10-30] MEDS ORDERED: DEXTROSE 40% GEL 15 GM TUBE PO PRN ×2 (11:27)
[2018-10-30] MEDS: FEBUXOSTAT 80 MG TABLET PO SCH (11:52)
[2018-10-30 12:25] LABS: BURR CELLS 1+
[2018-10-30] MEDS: METRONIDAZOLE 500 MG/NS RTU 500 MG/100 ML RTUPB IV SCH ×2 (13:22→21:58)
--- NOTE | 2018-10-30 13:26 | PDOC CONSULTATION ---
Consultation Consult Date: 10/30/18 Consult reason:: Right-sided chest pain. History of Present Illness Admission Date/PCP: 10/29/18 07:08 MAY NEWTON DO Patient complains of: Right-sided chest and flank pain History of Present Illness: ONI ELISE is a 68 year old female seen in consultation at the request of the hospitalist service. This is a patient with stage IV lung cancer, admitted for a large right-sided pulmonary embolus with ischemic changes of the right lower lobe. The patient complains of right-sided chest pain, worse with inspiration, movement, and activity. She reports mild shortness of breath. Her pain never goes away. It is not associated with eating. She has no difficulty with fatty foods. She denies nausea or vomiting. Her pain is sharp and stabbing. It is 10 out of 10. Past Medical History Cardiac Medical History: Reports: Hyperlipidema, Hypertension Denies: Congestive Heart Failure, Myocardial Infarction Pulmonary Medical History: Reports: Bronchitis Denies: Asthma, Chronic Obstructive Pulmonary Disease (COPD), Pneumonia, Tuberculosis Neurological Medical History: Denies: Seizures Renal/ Medical History: Denies: End Stage Renal Disease Malignancy Medical History: Reports: Lung Cancer, Skin Cancer GI Medical History: Denies: Cirrhosis, Gastroesophageal Reflux Disease Musculoskeltal Medical History: Reports: Arthritis Psychiatric Medical History: Denies: Bipolar Disorder, Depression Hematology: Reports: Anemia Denies: Bleeding Tendencies Past Surgical History Past Surgical History: Reports: Orthopedic Surgery, Vascular Surgery - port accessed Social History Smoking Status: Former Smoker Number of Years Smokin Frequency of Alcohol Use: Rare Hx Recreational Drug Use: No Drugs: None - Advance Directive Resuscitation Status: Full Code Family History Family History: Reviewed & Not Pertinent Parental Family History Reviewed: Yes Children Family History Reviewed: Yes Sibling(s) Family History Reviewed.: Yes Medication/Allergy Home Medications: Alendronate Sodium [Fosamax 70 mg Tablet] 70 mg PO TONG@0600 10/29/18 Alprazolam [Xanax 0.5 mg Tablet] 1 mg PO Q12 10/29/18 Atorvastatin Calcium [Lipitor 80 mg Tablet] 80 mg PO QHS 10/29/18 Bupropion HCl [Bupropion Xl] 300 mg PO DAILY 10/29/18 Febuxostat [Uloric 80 mg Tablet] 80 mg PO DAILY 10/29/18 Folic Acid [Folvite 1 mg Tablet] 1 mg PO DAILY 10/29/18 Hydrocodone/Acetaminophen [[facility] 7.5-325 mg Tablet] 1 tab PO Q8HP PRN 10/29/18 Magnesium Oxide [Mag-Ox 400 mg Tablet] 400 mg PO DAILY 10/29/18 Metoprolol Tartrate [Lopressor 50 mg Tablet] 50 mg PO Q12 10/29/18 Nitroglycerin [Nitrostat 0.4 mg (1/150 Gr) Tabs 25/Bottle] 1 tab SL Q5MP PRN 10/29/18 Pantoprazole Sodium [Protonix [address] Tablet] 40 mg PO QAM 10/29/18 Phenytoin Sodium Extended [Dilantin 100 mg Capsule.er] 100 mg PO Q8 10/29/18 Potassium Chloride [Klor-Con M20] 20 meq PO DAILY 10/29/18 Prochlorperazine Maleate [Compazine 10 mg Tablet] 10 mg PO Q6HP PRN 10/29/18 Ranitidine HCl [Zantac 150 mg Tablet] 150 mg PO BID 10/29/18 Verapamil HCl [Verapamil ER] 240 mg PO Q12 10/29/18 Allergies/Adverse Reactions: Tetanus Vaccines and Toxoid Allergy (Unknown, Verified 10/29/18 05:15) peanut Allergy (Verified 10/29/18 05:15) Penicillins Allergy (Verified 10/29/18 05:15) Review of Systems Constitutional: ABSENT: chills, fatigue, fever(s), headache(s) Eyes: ABSENT: visual disturbances Ears: ABSENT: hearing changes Nose, Mouth, and Throat: ABSENT: sore throat Cardiovascular: PRESENT: chest pain, dyspnea on exertion, edema Respiratory: PRESENT: cough, dyspnea Gastrointestinal: PRESENT: abdominal pain. ABSENT: bloating, melena, nausea, vomiting Genitourinary: ABSENT: dysuria Musculoskeletal: PRESENT: back pain Integumentary: ABSENT: pruritus, rash Neurological: ABSENT: confusion, convulsions, dizziness Psychiatric: ABSENT: anxiety, depression Endocrine: ABSENT: cold intolerance, heat intolerance Hematologic/Lymphatic: ABSENT: easy bleeding, easy bruising Physical Exam Vital Signs: Temp Pulse Resp BP Pulse Ox 98.0 F 73 18 110/62 98 10/30/18 12:26 10/30/18 12:26 10/30/18 12:26 10/30/18 12:26 10/30/18 12:26 Intake & Output 10/29/18 10/30/18 10/31/18 06:59 06:59 06:59 Intake Total 500 400 387 Output Total 900 Balance 500 -500 387 Weight 69.853 kg 68.5 kg General appearance: PRESENT: cooperative, mild distress Head exam: PRESENT: atraumatic, normocephalic Eye exam: ABSENT: scleral icterus Mouth exam: PRESENT: moist, neck supple Teeth exam: ABSENT: poor dentation Neck exam: ABSENT: meningismus, tenderness, thyromegaly, tracheal deviation Respiratory exam: PRESENT: chest wall tenderness - Right lateral chest wall, tachypnea - Mild Cardiovascular exam: PRESENT: RRR Pulses: PRESENT: normal radial pulses Vascular exam: ABSENT: pallor GI/Abdominal exam: PRESENT: distended, guarding - Voluntary guarding right lateral abdomen., soft. ABSENT: Mayer's sign, rebound, rigid Rectal exam: PRESENT: deferred Extremities exam: ABSENT: clubbing Musculoskeletal exam: ABSENT: deformity Neurological exam: PRESENT: alert, awake, oriented to person, oriented to place, oriented to time, oriented to situation Psychiatric exam: PRESENT: anxious. ABSENT: agitated, depressed Focused psych exam: ABSENT: delusional Skin exam: ABSENT: cyanosis, erythema Results Laboratory Results: 10/29/18 01:37 10/30/18 05:20 10/30/18 05:20 Sodium 139.5 Potassium 4.8 Chloride 114 H Carbon Dioxide 18 L Anion Gap 8 BUN 25 H Creatinine 1.41 H Est GFR ( Amer) 45 L Est GFR (Non-Af Amer) 37 L Glucose 92 Calcium 8.7 10/29/18 01:37 Troponin I < 0.012 Impressions: Chest X-Ray 10/29/18 01:31 IMPRESSION: No interval change. Small right basilar opacity with effusion. Recommend CR/CT surveillance including at 7-12 weeks following initiation of any clinically warranted therapy. Chest CT 10/29/18 03:37 IMPRESSION: 1. Moderate-sized pulmonary embolus in the right lower lung with either pneumonia or pulmonary infarct in the right lower lobe and small to moderate-sized right pleural effusion. Lien Conklin, nurse practitioner in the ER taking care of the patient, was made aware of this finding by myself by phone on 10/29/2018 at 3:39 AM. 2. Abnormal appearance of the gallbladder with dilatation of the common duct, recommend follow-up right upper quadrant ultrasound. 3. Mild diverticulosis. Abdomen/Pelvis CT 10/29/18 03:38 IMPRESSION: 1. Moderate-sized pulmonary embolus in the right lower lung with either pneumonia or pulmonary infarct in the right lower lobe and small to moderate-sized right pleural effusion. Lien Conklin, nurse practitioner in the ER taking care of the patient, was made aware of this finding by myself by phone on 10/29/2018 at 3:39 AM. 2. Abnormal appearance of the gallbladder with dilatation of the common duct, recommend follow-up right upper quadrant ultrasound. 3. Mild diverticulosis. Abdomen Ultrasound 10/29/18 04:44 IMPRESSION: Cholelithiasis without evidence of acute cholecystitis. Echogenic right kidney, likely due to chronic medical renal disease. copyright 2010 [employer]- All Rights Reserved Assessment & Plan - Diagnosis (1) Gallstones Is this a current diagnosis for this admission?: Yes (2) Pulmonary embolism Qualifiers: Pulmonary embolism type: other Chronicity: acute Acute cor pulmonale presence: without acute cor pulmonale Qualified Code(s): I26.99 - Other pulmonary embolism without acute cor pulmonale Is this a current diagnosis for this admission?: Yes - Plan Summary Plan Summary: This is a 68-year-old female with stage IV lung cancer, and a newly diagnosed moderate to large pulmonary embolus. Patient has evidence of parenchymal pulmonary necrosis/ischemia. This certainly would explain her discomfort. I have reviewed the patient's CT scan and right upper quadrant ultrasound. She has no sign of cholecystitis. Her common bile duct is normal in diameter. I have reviewed her laboratory evaluation. Her LFTs are completely normal. In light of these findings, I do not believe the patient has acute cholecystitis, or even symptomatic cholelithiasis. I believe the patient's symptoms can certainly be attributed to her large pulmonary embolus in the right lower lobe. At this time I recommend supportive care. If concern for cholecystitis does arise, the patient is not stable for surgery due to her newly diagnosed, large pulmonary embolus. If necessary, percutaneous cholecystostomy would be the most reasonable next step (if the situation arises). Again I reiterate, I do not believe her gallbladder is the source of her discomfort. I will see the patient again on an as-needed basis. Please renotify with questions or concerns.
[2018-10-30] MEDS: ATORVASTATIN CALCIUM 80 MG TABLET PO SCH (21:58)
[2018-10-31] MEDS: HYDROCODONE/ACETAMINOPHEN 7.5-325 MG TABLET PO PRN ×4 (05:16→19:25)
[2018-10-31] MEDS: PHENYTOIN SODIUM EXTENDED 100 MG CAPSULE PO SCH ×3 (05:16→21:50)
[2018-10-31] MEDS: BUPROPION HCL 100 MG TABLET PO SCH ×3 (05:16→21:50)
[2018-10-31] MEDS: METRONIDAZOLE 500 MG/NS RTU 500 MG/100 ML RTUPB IV SCH ×3 (05:25→21:49)
[2018-10-31] MEDS: ENOXAPARIN SODIUM INJ 80 MG/0.8 ML DISP.SYRIN SUBCUT SCH ×2 (05:30→17:38)
[2018-10-31 06:06] LABS: INTERNATIONAL RATION (INR) 1.05; PROTHROMBIN TIME 14.2 SEC (11.4-15.4)
[2018-10-31 06:19] LABS: ALANINE AMINOTRANSFERASE 29 U/L (9-52); ALBUMIN 2.4 g/dL (3.5-5.0); ALKALINE PHOSPHATASE 64 U/L (38-126); ANION GAP 6 (5-19); ASPARTATE AMINO TRANSFERASE 15 U/L (14-36); BILIRUBIN,DIRECT 0.2 mg/dL (0.0-0.4); BILIRUBIN,TOTAL 0.2 mg/dL (0.2-1.3); BLOOD UREA NITROGEN 25 mg/dL (7-20); CALCIUM 8.3 mg/dL (8.4-10.2); CARBON DIOXIDE 19 mmol/L (22-30); CHLORIDE 113 mmol/L (98-107); GLUCOSE 96 mg/dL (75-110); POTASSIUM 4.8 mmol/L (3.6-5.0); SODIUM 138.2 mmol/L (137-145)
[2018-10-31 06:26] LABS: HEMATOCRIT 27.1 % (36.0-47.0); HEMOGLOBIN 9.1 g/dL (12.0-15.5); MEAN CORPUSCULAR HEMOGLOBIN 34.9 pg (27.0-33.4); MEAN CORPUSCULAR HGB CONC 33.7 g/dL (32.0-36.0); MEAN CORPUSCULAR VOLUME 104 fl (80-97); PLATELET COUNT 173 10^3/uL (150-450); RED BLOOD COUNT 2.62 10^6/uL (3.72-5.28); RED CELL DISTRIBUTION WIDTH 17.1 % (11.5-14.0)
[2018-10-31 06:56] LABS: ABSOLUTE LYMPHOCYTES# (MANUAL) 0.4 10^3/uL (0.5-4.7); ABSOLUTE MONOCYTES # (MANUAL) 0.5 10^3/uL (0.1-1.4); ABSOLUTE NEUTROPHILS# (MANUAL) 6.1 10^3/uL (1.7-8.2); BASOPHILS % (MANUAL) 1 % (0-2); EOSINOPHILS % (MANUAL) 0 % (0-6); LYMPHOCYTES % (MANUAL) 5 % (13-45); MONOCYTES % (MANUAL) 7 % (3-13); SEGMENTED NEUTROPHILS % (MAN) 87 % (42-78); TOTAL CELLS COUNTED 100
[2018-10-31 06:58] LABS: HYPOCHROMASIA 1+
[2018-10-31 06:59] LABS: PLATELET COMMENT ADEQUATE
[2018-10-31 07:00] LABS: BURR CELLS SLIGHT; SPHEROCYTES 1+
[2018-10-31] MEDS ORDERED: MAGNESIUM SULFATE/D5W 1 GM/100 ML RTUPB IV ONE ×3 (07:00→11:00)
[2018-10-31] MEDS: PANTOPRAZOLE SODIUM 40 MG TABLET.DR PO SCH (08:43)
[2018-10-31] MEDS: ACETAMINOPHEN 325 MG TABLET PO PRN ×3 (08:43→17:38)
[2018-10-31] MEDS: MAGNESIUM OXIDE 400 MG TABLET PO SCH (09:56)
[2018-10-31] MEDS: POTASSIUM CHLORIDE 10 MEQ CAPSULE.ER PO SCH (09:56)
[2018-10-31] MEDS: METOPROLOL TARTRATE 50 MG TABLET PO SCH ×2 (09:56→21:50)
[2018-10-31] MEDS: FOLIC ACID 1 MG TABLET PO SCH (09:56)
[2018-10-31] MEDS: VERAPAMIL HCL 240 MG TABLET.SA PO SCH ×2 (09:58→21:51)
[2018-10-31] MEDS: FEBUXOSTAT 80 MG TABLET PO SCH (09:59)
--- NOTE | 2018-10-31 19:09 | PDOC PROGRESS REPORT ---
Subjective Progress Note for:: 10/31/18 Subjective:: ONI ELISE is a 68 year old female with a history of stage IV lung cancer (receiving chemotherapy as outpatient), CKD not seen by director pharmacology, COPD and chronic right upper quadrant flank pain who presented with worsening right flank pain which is been going on for about 2-3 days, worsening pain with inspiration. She has pain medicine at home and was taking it and initially it was helping but eventually got to the point where her pain medicine was not controlling it. Her troponins were negative she did have any EKG changes, but she was noted to have pulmonary embolus on the right side of her chest on chest CT. She was on 2 L of oxygen which she is on at home but her oxygen saturations were still a little bit on the low side even on 2 L. She was admitted for further management. 10/30/2018. No acute events overnight. Patient still having right upper quadrant abdominal pain, worse with movement and palpation. Patient has positive finding of on the CT chronic cholecystitis . She has been having right upper quadrant abdominal pain for a while and is aware that she has some problem with her gallbladder but has not been evaluated by surgery for possible cholecystectomy because of fear of spreading her lung cancer. She is adamantly against cholecystectomy stating that if she is opened up her lung cancer be spread everywhere. She mentions that her mom also had cancer and after having a surgery. She was advised on the need for surgical consultation as her chronic right upper quadrant abdominal pain could be due to her chronic cholecystitis, initially she was adamantly refusing any idea of surgical evaluation but after counseling her extensively she decided to talk to her and contact her oncologist and find out if her suspicions are true. After talking to her and contacting her oncologist she was reassured by her oncologist that having a cholecystectomy will not affect her underlying lung cancer. She agreed for surgical consult. Denies any fever, chills, nausea, vomiting, diarrhea, constipation. Planing of persistent right upper quadrant abdominal pain worse with movement, nonradiating, 3/5 on severity scale. Reason For Visit: PULMONARY EMBOLUS,PULMONARY INFARCT Physical Exam Vital Signs: Temp Pulse Resp BP Pulse Ox 97.8 F 83 18 131/63 H 92 10/31/18 14:54 10/31/18 14:54 10/31/18 14:54 10/31/18 14:54 10/31/18 14:54 Intake & Output 10/30/18 10/31/18 11/01/18 06:59 06:59 06:59 Intake Total 400 1146 1074 Output Total 900 Balance -500 1146 1074 Weight 68.5 kg 67 kg General appearance: PRESENT: no acute distress, well-developed, well-nourished Head exam: PRESENT: atraumatic, normocephalic Neck exam: ABSENT: carotid bruit, JVD, lymphadenopathy, thyromegaly Respiratory exam: PRESENT: clear to auscultation davide. ABSENT: rales, rhonchi, wheezes Cardiovascular exam: PRESENT: RRR. ABSENT: diastolic murmur, rubs, systolic murmur GI/Abdominal exam: PRESENT: guarding, tenderness Neurological exam: PRESENT: alert, awake, oriented to person, oriented to place, oriented to time, oriented to situation, CN II-XII grossly intact. ABSENT: motor sensory deficit Results Laboratory Results: 10/31/18 05:30 10/31/18 05:30 10/31/18 10/31/18 05:30 05:30 WBC 7.0 RBC 2.62 L Hgb 9.1 L Hct 27.1 L MCV 104 H MCH 34.9 H MCHC 33.7 RDW 17.1 H Plt Count 173 Seg Neutrophils % Not Reportable Lymphocytes % Not Reportable Monocytes % Not Reportable Eosinophils % Not Reportable Basophils % Not Reportable Absolute Neutrophils Not Reportable Absolute Lymphocytes Not Reportable Absolute Monocytes Not Reportable Absolute Eosinophils Not Reportable Absolute Basophils Not Reportable Sodium 138.2 Potassium 4.8 Chloride 113 H Carbon Dioxide 19 L Anion Gap 6 BUN 25 H Creatinine 1.56 H Est GFR ( Amer) 40 L Est GFR (Non-Af Amer) 33 L Glucose 96 Calcium 8.3 L Magnesium 1.1 L* Total Bilirubin 0.2 AST 15 ALT 29 Alkaline Phosphatase 64 Total Protein 5.0 L Albumin 2.4 L 10/29/18 01:37 Troponin I < 0.012 Impressions: Chest X-Ray 10/29/18 01:31 IMPRESSION: No interval change. Small right basilar opacity with effusion. Recommend CR/CT surveillance including at 7-12 weeks following initiation of any clinically warranted therapy. Chest CT 10/29/18 03:37 IMPRESSION: 1. Moderate-sized pulmonary embolus in the right lower lung with either pneumonia or pulmonary infarct in the right lower lobe and small to moderate-sized right pleural effusion. Lien Conklin, nurse practitioner in the ER taking care of the patient, was made aware of this finding by myself by phone on 10/29/2018 at 3:39 AM. 2. Abnormal appearance of the gallbladder with dilatation of the common duct, recommend follow-up right upper quadrant ultrasound. 3. Mild diverticulosis. Abdomen/Pelvis CT 10/29/18 03:38 IMPRESSION: 1. Moderate-sized pulmonary embolus in the right lower lung with either pneumonia or pulmonary infarct in the right lower lobe and small to moderate-sized right pleural effusion. Lien Conklin, nurse practitioner in the ER taking care of the patient, was made aware of this finding by myself by phone on 10/29/2018 at 3:39 AM. 2. Abnormal appearance of the gallbladder with dilatation of the common duct, recommend follow-up right upper quadrant ultrasound. 3. Mild diverticulosis. Abdomen Ultrasound 10/29/18 04:44 IMPRESSION: Cholelithiasis without evidence of acute cholecystitis. Echogenic right kidney, likely due to chronic medical renal disease. copyright 2010 [employer]- All Rights Reserved Assessment and Plan - Diagnosis (1) Pulmonary embolism Qualifiers: Pulmonary embolism type: other Chronicity: acute Acute cor pulmonale presence: without acute cor pulmonale Qualified Code(s): I26.99 - Other pulmonary embolism without acute cor pulmonale Is this a current diagnosis for this admission?: Yes Plan: Provoked. Likely due to underlying malignancy. Continue therapeutic Lovenox to be switched to NOACs. Troponins are negative. EKG normal sinus rhythm. Continue supplemental oxygen. Continue to monitor. Monitor vitals. (2) Chronic cholecystitis Is this a current diagnosis for this admission?: Yes (3) Lung cancer Qualifiers: Laterality: right Lung location: middle lobe of lung Qualified Code(s): C34.2 - Malignant neoplasm of middle lobe, bronchus or lung Is this a current diagnosis for this admission?: Yes Plan: On chemotherapy as outpatient. Patient has established oncology care as outpatient. (4) CKD (chronic kidney disease) stage 3, GFR 30-59 ml/min Is this a current diagnosis for this admission?: No Plan: Likely due to chemotherapy. Creatinine stable. Electrolytes within normal limits. Nonuremic. Nonoliguric. Electrolytes and volume status. Outpatient nephrology and PCP follow-up. Avoid NSAIDs and nephrotoxic agents.
[2018-10-31] MEDS: ATORVASTATIN CALCIUM 80 MG TABLET PO SCH (21:50)
[2018-11-01] MEDS: HYDROCODONE/ACETAMINOPHEN 7.5-325 MG TABLET PO PRN ×3 (03:11→12:40)
[2018-11-01 04:37] LABS: ABSOLUTE LYMPHOCYTES (AUTO) 0.4 10^3/uL (0.5-4.7); ABSOLUTE MONOCYTES (AUTO) 0.8 10^3/uL (0.1-1.4); ABSOLUTE NEUT (AUTO) 4.1 10^3/uL (1.7-8.2); BASOPHILS % (AUTO) 0.5 % (0-2); EOSINOPHILS % (AUTO) 0.3 % (0-6); HEMATOCRIT 26.2 % (36.0-47.0); HEMOGLOBIN 8.9 g/dL (12.0-15.5); MEAN CORPUSCULAR HEMOGLOBIN 34.9 pg (27.0-33.4); MEAN CORPUSCULAR HGB CONC 33.9 g/dL (32.0-36.0); MEAN CORPUSCULAR VOLUME 103 fl (80-97); MONOCYTES % (AUTO) 15.6 % (3-13); PLATELET COUNT 192 10^3/uL (150-450); RED BLOOD COUNT 2.54 10^6/uL (3.72-5.28); RED CELL DISTRIBUTION WIDTH 17.1 % (11.5-14.0); SEGMENTED NEUTROPHILS % (AUTO) 75.6 % (42-78); TOTAL CELLS COUNTED % (AUTO) 100 %; WHITE BLOOD COUNT 5.4 10^3/uL (4.0-10.5)
[2018-11-01 04:52] LABS: ANION GAP 8 (5-19); BLOOD UREA NITROGEN 24 mg/dL (7-20); CALCIUM 8.4 mg/dL (8.4-10.2); CARBON DIOXIDE 18 mmol/L (22-30); CHLORIDE 113 mmol/L (98-107); GLUCOSE 92 mg/dL (75-110); POTASSIUM 4.6 mmol/L (3.6-5.0); SODIUM 139.3 mmol/L (137-145)
[2018-11-01] MEDS: BUPROPION HCL 100 MG TABLET PO SCH ×2 (05:28→15:35)
[2018-11-01] MEDS: PHENYTOIN SODIUM EXTENDED 100 MG CAPSULE PO SCH ×2 (05:28→15:35)
[2018-11-01] MEDS: METRONIDAZOLE 500 MG/NS RTU 500 MG/100 ML RTUPB IV SCH (05:28)
[2018-11-01] MEDS: ACETAMINOPHEN 325 MG TABLET PO PRN (06:30)
[2018-11-01] MEDS: PANTOPRAZOLE SODIUM 40 MG TABLET.DR PO SCH (07:30)
[2018-11-01] MEDS: MAGNESIUM OXIDE 400 MG TABLET PO SCH (09:31)
[2018-11-01] MEDS: POTASSIUM CHLORIDE 10 MEQ CAPSULE.ER PO SCH (09:31)
[2018-11-01] MEDS: FOLIC ACID 1 MG TABLET PO SCH (09:31)
[2018-11-01] MEDS: FEBUXOSTAT 80 MG TABLET PO SCH (09:32)
[2018-11-01] MEDS: VERAPAMIL HCL 240 MG TABLET.SA PO SCH (09:32)
[2018-11-01] MEDS ORDERED: CARVEDILOL 12.5 MG TABLET PO SCH (10:00)
[2018-11-01] MEDS ORDERED: APIXABAN 5 MG TABLET PO SCH (10:00)
[2018-11-01 13:00] VITALS: BP 134/63
[2018-11-01] MEDS ORDERED: DIPHENHYDRAMINE HCL 25 MG CAPSULE ONE (15:34)
[2018-11-01] MEDS ORDERED: DIPHENHYDRAMINE HCL 25 MG CAPSULE PO PRN (16:00)
--- NOTE | 2018-11-24 18:27 | PDOC DISCHARGE SUMMARY ---
General - Admit/Disc Date/PCP Admission Date/Primary Care Provider: 10/29/18 07:08 MAY LAMAR, Discharge Date: 11/01/18 - Discharge Diagnosis (1) Pulmonary embolism Is this a current diagnosis for this admission?: Yes (2) Chronic cholecystitis Is this a current diagnosis for this admission?: Yes (3) Lung cancer Is this a current diagnosis for this admission?: Yes (4) CKD (chronic kidney disease) stage 3, GFR 30-59 ml/min Is this a current diagnosis for this admission?: No - Additional Information Resuscitation Status: Full Code Discharge Diet: Cardiac Discharge Activity: Activity As Tolerated, Balance Activity w/Rest Home Medications: Alendronate Sodium [Fosamax 70 mg Tablet] 70 mg PO TONG@0600 11/15/18 Alprazolam [Xanax 0.5 mg Tablet] 1 mg PO Q12 11/15/18 Atorvastatin Calcium [Lipitor 80 mg Tablet] 80 mg PO QHS 11/15/18 Bupropion HCl [Wellbutrin Xl 300mg 24hr Tablet] 300 mg PO DAILY 11/15/18 Carvedilol [Coreg 12.5 mg Tablet] 12.5 mg PO Q12 11/15/18 Febuxostat [Uloric 80 mg Tablet] 80 mg PO DAILY 11/15/18 Folic Acid [Folvite 1 mg Tablet] 1 mg PO DAILY 11/15/18 Hydrocodone/Acetaminophen [[place] 7.5-325 mg Tablet] 1 tab PO Q8HP PRN 11/15/18 Magnesium Oxide [Mag-Ox 400 mg Tablet] 400 mg PO DAILY 11/15/18 Nitroglycerin [Nitrostat 0.4 mg (1/150 Gr) Tabs 25/Bottle] 0.4 mg SL Q5MP PRN 11/15/18 Pantoprazole Sodium [Protonix [address] Tablet] 40 mg PO DAILY 11/15/18 Phenytoin Sodium Extended [Dilantin 100 mg Capsule.er] 100 mg PO Q8 11/15/18 Potassium Chloride [Klor-Con M20] 20 meq PO DAILY 11/15/18 Prochlorperazine Maleate [Compazine 10 mg Tablet] 10 mg PO Q6HP PRN 11/15/18 Verapamil HCl [Verapamil ER] 240 mg PO Q12 11/15/18 History of Present Illness History of Present Illness: ONI ELISE is a 68 year old female with a history of stage IV lung cancer (receiving chemotherapy as outpatient), CKD not seen by wireless sales expert, COPD and chronic right upper quadrant flank pain who presented with worsening right flank pain which is been going on for about 2-3 days, worsening pain with inspiration. She has pain medicine at home and was taking it and initially it was helping but eventually got to the point where her pain medicine was not controlling it. Her troponins were negative she did have any EKG changes, but she was noted to have pulmonary embolus on the right side of her chest on chest CT. She was on 2 L of oxygen which she is on at home but her oxygen saturations were still a little bit on the low side even on 2 L. She was admitted for further management. 10/30/2018. No acute events overnight. Patient still having right upper quadrant abdominal pain, worse with movement and palpation. Patient has positive finding of on the CT chronic cholecystitis . She has been having right upper quadrant abdominal pain for a while and is aware that she has some problem with her gallbladder but has not been evaluated by surgery for possible cholecystectomy because of fear of spreading her lung cancer. She is adamantly against cholecystectomy stating that if she is opened up her lung cancer be spread everywhere. She mentions that her mom also had cancer and after having a surgery. She was advised on the need for surgical consultation as her chronic right upper quadrant abdominal pain could be due to her chronic cholecystitis, initially she was adamantly refusing any idea of surgical evaluation but after counseling her extensively she decided to talk to her and contact her oncologist and find out if her suspicions are true. After talking to her and contacting her oncologist she was reassured by her oncologist that having a cholecystectomy will not affect her underlying lung cancer. She agreed for surgical consult. Denies any fever, chills, nausea, vomiting, diarrhea, constipation. Planing of persistent right upper quadrant abdominal pain worse with movement, nonradiating, 3/5 on severity scale. Hospital Course Hospital Course: (1) Pulmonary embolism Provoked. Likely due to underlying malignancy. Will start on therapeutic Lovenox and switched to Xarelto on discharge. Troponins are negative. EKG normal sinus rhythm. Continue supplemental oxygen. Continue to monitor. Monitor vitals. (2) Chronic cholecystitis Is this a current diagnosis for this admission?: Yes (3) Lung cancer Qualifiers: Laterality: right Lung location: middle lobe of lung Qualified Code(s): C34.2 - Malignant neoplasm of middle lobe, bronchus or lung Is this a current diagnosis for this admission?: Yes Plan: On chemotherapy as outpatient. Patient has established oncology care as outpatient. (4) CKD (chronic kidney disease) stage 3, GFR 30-59 ml/min Is this a current diagnosis for this admission?: No Plan: Likely due to chemotherapy. Creatinine stable. Electrolytes within normal cruz its. Nonuremic. Nonoliguric. Electrolytes and volume status. Outpatient nephrology and PCP follow-up. Avoid NSAIDs and nephrotoxic agents. Physical Exam Vital Signs: Temp Pulse Resp BP Pulse Ox 97.4 F 78 16 134/63 H 98 11/01/18 16:18 11/01/18 16:18 11/01/18 16:18 11/01/18 11:22 11/01/18 16:18 Results Laboratory Results: 11/01/18 04:00 11/01/18 04:00 10/29/18 01:37 Troponin I < 0.012 Impressions: Chest X-Ray 10/29/18 01:31 IMPRESSION: No interval change. Small right basilar opacity with effusion. Recommend CR/CT surveillance including at 7-12 weeks following initiation of any clinically warranted therapy. Chest CT 10/29/18 03:37 IMPRESSION: 1. Moderate-sized pulmonary embolus in the right lower lung with either pneumonia or pulmonary infarct in the right lower lobe and small to moderate-sized right pleural effusion. Lien Conklin, nurse practitioner in the ER taking care of the patient, was made aware of this finding by myself by phone on 10/29/2018 at 3:39 AM. 2. Abnormal appearance of the gallbladder with dilatation of the common duct, recommend follow-up right upper quadrant ultrasound. 3. Mild diverticulosis. Abdomen/Pelvis CT 10/29/18 03:38 IMPRESSION: 1. Moderate-sized pulmonary embolus in the right lower lung with either pneumonia or pulmonary infarct in the right lower lobe and small to moderate-sized right pleural effusion. Lien Conklin, nurse practitioner in the ER taking care of the patient, was made aware of this finding by myself by phone on 10/29/2018 at 3:39 AM. 2. Abnormal appearance of the gallbladder with dilatation of the common duct, recommend follow-up right upper quadrant ultrasound. 3. Mild diverticulosis. Abdomen Ultrasound 10/29/18 04:44 IMPRESSION: Cholelithiasis without evidence of acute cholecystitis. Echogenic right kidney, likely due to chronic medical renal disease. copyright 2010 [employer]- All Rights Reserved Qualifiers - * PATIENT BEING DISCHARGED WITH ANY OF THE FOLLOWING DIAGNOSIS: No Acute Heart Failure Is this a Heart Failure Patient?: No
--- NOTE | 2018-12-03 16:17 | PDOC DISCHARGE SUMMARY ---
General - Admit/Disc Date/PCP Admission Date/Primary Care Provider: 10/29/18 07:08 MAY LAMAR, Discharge Date: 11/01/18 - Discharge Diagnosis (1) Pulmonary embolism Is this a current diagnosis for this admission?: Yes (2) Lung cancer Is this a current diagnosis for this admission?: Yes (3) Gallstones Is this a current diagnosis for this admission?: Yes (4) CKD (chronic kidney disease) stage 3, GFR 30-59 ml/min Is this a current diagnosis for this admission?: No - Additional Information Resuscitation Status: Full Code Discharge Diet: Cardiac Discharge Activity: Activity As Tolerated, Balance Activity w/Rest Home Medications: Alendronate Sodium [Fosamax 70 mg Tablet] 70 mg PO TONG@0600 11/15/18 Alprazolam [Xanax 0.5 mg Tablet] 1 mg PO Q12 11/15/18 Atorvastatin Calcium [Lipitor 80 mg Tablet] 80 mg PO QHS 11/15/18 Bupropion HCl [Wellbutrin Xl 300mg 24hr Tablet] 300 mg PO DAILY 11/15/18 Carvedilol [Coreg 12.5 mg Tablet] 12.5 mg PO Q12 11/15/18 Febuxostat [Uloric 80 mg Tablet] 80 mg PO DAILY 11/15/18 Folic Acid [Folvite 1 mg Tablet] 1 mg PO DAILY 11/15/18 Hydrocodone/Acetaminophen [[place] 7.5-325 mg Tablet] 1 tab PO Q8HP PRN 11/15/18 Magnesium Oxide [Mag-Ox 400 mg Tablet] 400 mg PO DAILY 11/15/18 Nitroglycerin [Nitrostat 0.4 mg (1/150 Gr) Tabs 25/Bottle] 0.4 mg SL Q5MP PRN 11/15/18 Pantoprazole Sodium [Protonix [address] Tablet] 40 mg PO DAILY 11/15/18 Phenytoin Sodium Extended [Dilantin 100 mg Capsule.er] 100 mg PO Q8 11/15/18 Potassium Chloride [Klor-Con M20] 20 meq PO DAILY 11/15/18 Verapamil HCl [Verapamil ER] 240 mg PO Q12 11/15/18 Apixaban [Eliquis 5 mg Tablet] 5 mg PO BID 12/03/18 Aspirin [Ecotrin] 81 mg PO DAILY 12/03/18 Metoprolol Tartrate [Lopressor 50 mg Tablet] 50 mg PO Q12H 12/03/18 Ranitidine HCl 150 mg PO BID 12/03/18 History of Present Illness History of Present Illness: ONI ELISE is a 68 year old female with a history of stage IV lung cancer (receiving chemotherapy as outpatient), CKD not seen by commercial field inspector, COPD and chronic right upper quadrant flank pain who presented with worsening right flank pain which is been going on for about 2-3 days, worsening pain with inspiration. She has pain medicine at home and was taking it and initially it was helping but eventually got to the point where her pain medicine was not controlling it. Her troponins were negative she did have any EKG changes, but she was noted to have pulmonary embolus on the right side of her chest on chest CT. She was on 2 L of oxygen which she is on at home but her oxygen saturations were still a little bit on the low side even on 2 L. She was admitted for further ma nagement. 10/30/2018. No acute events overnight. Patient still having right upper quadrant abdominal pain, worse with movement and palpation. Patient has positive finding of on the CT chronic cholecystitis . She has been having right upper quadrant abdominal pain for a while and is aware that she has some problem with her gallbladder but has not been evaluated by surgery for possible cholecystectomy because of fear of spreading her lung cancer. She is adamantly against cholecystectomy stating that if she is opened up her lung cancer be spread everywhere. She mentions that her mom also had cancer and after having a surgery. She was advised on the need for surgical consultation as her chronic right upper quadrant abdominal pain could be due to her chronic cholecystitis, initially she was adamantly refusing any idea of surgical evaluation but after counseling her extensively she decided to talk to her and contact her oncologist and find out if her suspicions are true. After talking to her and contacting her oncologist she was reassured by her oncologist that having a cholecystectomy will not affect her underlying lung cancer. She agreed for surg ical consult. Hospital Course Hospital Course: (1) Pulmonary embolism Provoked. Likely due to underlying malignancy. Continue therapeutic Lovenox to be switched to NOACs. Troponins are negative. EKG normal sinus rhythm. Continued on supplemental oxygen. Discharged on Eliquis to follow-up with PCP. (2) Gall Stones Patient was complaining of right upper quadrant abdominal pain. Question of acute cholecystitis was raised on initial CTA chest impression was abnormal appearance of the gallbladder with dilation of the common duct. However normal liver function test. In light of the quadrant pain and CTA finding surgery was consulted for evaluation for possible chronic cholecystitis. But as per their evaluation and repeat right upper quadrant ultrasound showed cholelithiasis without evidence of acute cholecystitis. No intervention was done and right upper quadrant pain was attributed to right PE. Symptomatic management was recommended. (3) Lung cancer On chemotherapy as outpatient. Patient has established oncology care as outpatient. (4) CKD (chronic kidney disease) stage 3, GFR 30-59 ml/min Likely due to chemotherapy. Creatinine stable. Electrolytes within normal limits. Nonuremic. Nonoliguric. Electrolytes and volume status. Avoid NSAIDs and nephrotoxic agents. Appointment was made for her to see Dr. Mario Fry commercial field inspector as outpatient. Physical Exam Vital Signs: Temp Pulse Resp BP Pulse Ox 97.4 F 78 16 134/63 H 98 11/01/18 16:18 11/01/18 16:18 11/01/18 16:18 11/01/18 11:22 11/01/18 16:18 General appearance: PRESENT: no acute distress, well-developed, well-nourished Head exam: PRESENT: atraumatic, normocephalic Eye exam: PRESENT: conjunctiva pink, EOMI, PERRLA. ABSENT: scleral icterus Respiratory exam: PRESENT: clear to auscultation davide. ABSENT: rales, rhonchi, wheezes Cardiovascular exam: PRESENT: RRR. ABSENT: diastolic murmur, rubs, systolic murmur GI/Abdominal exam: PRESENT: normal bowel sounds, soft, tenderness - RUQ. ABSENT: distended, guarding, mass, organolmegaly, rebound Extremities exam: PRESENT: full ROM. ABSENT: calf tenderness, clubbing, pedal edema Neurological exam: PRESENT: alert, awake, oriented to person, oriented to place, oriented to time, oriented to situation, CN II-XII grossly intact. ABSENT: motor sensory deficit Results Laboratory Results: 11/01/18 04:00 11/01/18 04:00 10/29/18 01:37 Troponin I < 0.012 Impressions: Chest X-Ray 10/29/18 01:31 IMPRESSION: No interval change. Small right basilar opacity with effusion. Recommend CR/CT surveillance including at 7-12 weeks following initiation of any clinically warranted therapy. Chest CT 10/29/18 03:37 IMPRESSION: 1. Moderate-sized pulmonary embolus in the right lower lung with either pneumonia or pulmonary infarct in the right lower lobe and small to moderate-sized right pleural effusion. Lien Conklin, nurse practitioner in the ER taking care of the patient, was made aware of this finding by myself by phone on 10/29/2018 at 3:39 AM. 2. Abnormal appearance of the gallbladder with dilatation of the common duct, recommend follow-up right upper quadrant ultrasound. 3. Mild diverticulosis. Abdomen/Pelvis CT 10/29/18 03:38 IMPRESSION: 1. Moderate-sized pulmonary embolus in the right lower lung with either pneumonia or pulmonary infarct in the right lower lobe and small to moderate-sized right pleural effusion. Lien Conklin, nurse practitioner in the ER taking care of the patient, was made aware of this finding by myself by phone on 10/29/2018 at 3:39 AM. 2. Abnormal appearance of the gallbladder with dilatation of the common duct, recommend follow-up right upper quadrant ultrasound. 3. Mild diverticulosis. Abdomen Ultrasound 10/29/18 04:44 IMPRESSION: Cholelithiasis without evidence of acute cholecystitis. Echogenic right kidney, likely due to chronic medical renal disease. copyright 2010 [facility] [employer]- All Rights Reserved Qualifiers - * PATIENT BEING DISCHARGED WITH ANY OF THE FOLLOWING DIAGNOSIS: No Acute Heart Failure Is this a Heart Failure Patient?: No
== END 2018-11-01 16:55 | disposition home or self-care (01) | DRG 176 ==
LOC: ER 00:42 → EH 07:08 → 3W 16:45
PROVIDERS: ADMIT Family Medicine; ATTEND Internal Medicine
DX: I26.99 Other pulmonary embolism without acute cor pulmonale (principal); C34.2 Malignant neoplasm of middle lobe, bronchus or lung; K81.1 Chronic cholecystitis; N18.3 Chronic kidney disease, stage 3 (moderate); I12.9 Hypertensive chronic kidney disease with stage 1 through stage 4 chronic kidney disease, or unspecified chronic kidney disease; J44.9 Chronic obstructive pulmonary disease, unspecified; M19.90 Unspecified osteoarthritis, unspecified site; E78.5 Hyperlipidemia, unspecified; Z88.0 Allergy status to penicillin; Z88.7 Allergy status to serum and vaccine; Z91.010 Allergy to peanuts; Z79.899 Other long term (current) drug therapy; Z87.891 Personal history of nicotine dependence
CPT/HCPCS: 36415; 36591; 70450; 71046; 71260; 74177; 76705; 80048; 80053; 81001; 83735; 84484; 85025; 85610; 85730; 96361; 96374; 96375; 96376; 99285; J1642; J1650; J1956; J2270; J3010; J3475; J3490; J7030

== ENCOUNTER 2018-11-14 17:33 | Emergency (ER) | payer MEDICARE, OTHER ==
[2018-11-14] MEDS ORDERED: PANTOPRAZOLE SODIUM 40 MG VIAL IV ONE (19:54)
--- NOTE | 2018-11-14 19:54 | ER Document Report ---
ED Medical Screen (RME) - General Chief Complaint: Abnormal Lab Results Stated Complaint: ABNORMAL LABS Time Seen by Provider: 11/14/18 19:44 Primary Care Provider: MAY NEWTON DO [Primary Care Provider] - Follow up as needed TRAVEL OUTSIDE OF THE [place] IN LAST 30 DAYS: No - HPI Notes: 11/14/18 19:52 Patient is a 68-year-old female with a history of stage IV lung cancer, stage III chronic kidney disease, PE (on Eliquis/aspirin daily)- dx'd a few weeks ago, and COPD who presents emergency department per the direction of her family doctor for Hemoccult positive stool. Patient states that she has been having black stools over the past week. Patient states that she otherwise has been feeling well and has been eating and drinking without difficulty. She is urina ting normally. Denies COCHRAN, fever, neck pain, URI, CP, acute SOB, Abd pain, or rash. I have treated and performed a rapid initial assessment of this patient. A comprehensive ED assessment and evaluation of the patient, analysis of test results and completion of medical decision making process will be conducted by additional ED providers. PHYSICAL EXAMINATION: GENERAL: Well-appearing, well-nourished and in no acute distress. A&Ox4. Answers questions appropriately. LUNGS: Breath sounds clear to auscultation bilaterally and equal. No wheezes rales or rhonchi. HEART: Regular rate and rhythm without murmurs, rubs, gallops. ABDOMEN: Soft, nondistended abdomen. No guarding, no rebound. Normal bowel sounds present. No CVA tenderness bilaterally. Grossly non-tender (cannot elicit thorough abd exam w/o table, however). - Related Data Allergies/Adverse Reactions: Tetanus Vaccines and Toxoid Allergy (Unknown, Verified 11/14/18 19:46) peanut Allergy (Verified 11/14/18 19:46) Penicillins Allergy (Verified 11/14/18 19:46) Past Medical History - Past Medical History Cardiac Medical History: Reports: Hx Hypercholesterolemia, Hx Hypertension Denies: Hx Congestive Heart Failure, Hx Heart Attack Pulmonary Medical History: Reports: Hx Bronchitis Denies: Hx Asthma, Hx COPD, Hx Pneumonia, Hx Tuberculosis Neurological Medical History: Denies: Hx Seizures Renal/ Medical History: Denies: Hx End Stage Renal Disease, Hx Kidney Stones, Hx Peritoneal Dialysis Malignancy Medical History: Reports: Hx Lung Cancer, Hx Skin Cancer GI Medical History: Denies: Hx Cirrhosis, Hx Gastroesophageal Reflux Disease, Hx Ulcer Musculoskeltal Medical History: Reports Hx Arthritis, Denies Hx Multiple Sclerosis, Reports Hx Musculoskeletal Trauma Psychiatric Medical History: Denies: Hx Bipolar Disorder, Hx Depression, Hx Schizophrenia Past Surgical History: Reports: Hx Orthopedic Surgery, Hx Vascular Surgery - port accessed - Immunizations Hx Diphtheria, Pertussis, Tetanus Vaccination: Yes History of Influenza Vaccine for 04/2017 - 09/2017 Season: Yes Influenza Administration Date for 04/2017 - 09/2017 Season: 04/16/17 Physical Exam - Vital signs Vitals: Temp Pulse Resp BP Pulse Ox 98.2 F 89 18 148/73 H 94 11/14/18 18:12 11/14/18 18:12 11/14/18 18:12 11/14/18 18:12 11/14/18 18:12 Course - Vital Signs Vital signs: Temp Pulse Resp BP Pulse Ox 99.1 F 89 22 H 154/57 H 98 11/14/18 19:42 11/14/18 19:42 11/14/18 19:42 11/14/18 19:42 11/14/18 19:42 Doctor's Discharge - Discharge Referrals: MAY NEWTON DO [Primary Care Provider] - Follow up as needed
[2018-11-14] MEDS ORDERED: PANTOPRAZOLE SODIUM 40 MG VIAL IV PRN (19:55)
[2018-11-14] MEDS ORDERED: ACETAMINOPHEN 325 MG TABLET PO ONE (21:08)
[2018-11-14 21:18] LABS: APPEARANCE,URINE SLIGHTLY-CLOUDY; BILIRUBIN,URINE NEGATIVE (NEGATIVE); COLOR,URINE YELLOW; GLUCOSE, URINE NEGATIVE (NEGATIVE); KETONES,URINE NEGATIVE (NEGATIVE); LEUKOCYTE ESTERASE,URINE SMALL (NEGATIVE); NITRITE,URINE NEGATIVE (NEGATIVE); PROTEIN,URINE NEGATIVE (NEGATIVE); URINE SPECIFIC GRAVITY 1.018; UROBILINOGEN,URINE NEGATIVE mg/dL (<2.0)
[2018-11-14 21:43] LABS: ABSOLUTE BASOPHILS # (AUTO) 0.1 10^3/uL (0.0-0.2); ABSOLUTE EOSINOPHILS # (AUTO) 0.1 10^3/uL (0.0-0.6); ABSOLUTE LYMPHOCYTES (AUTO) 1.1 10^3/uL (0.5-4.7); ABSOLUTE MONOCYTES (AUTO) 1.2 10^3/uL (0.1-1.4); ABSOLUTE NEUT (AUTO) 5.7 10^3/uL (1.7-8.2); BASOPHILS % (AUTO) 0.7 % (0-2); EOSINOPHILS % (AUTO) 0.7 % (0-6); HEMATOCRIT 18.4 % (36.0-47.0); LYMPHOCYTES % (AUTO) 13.3 % (13-45); MEAN CORPUSCULAR HEMOGLOBIN 34.5 pg (27.0-33.4); MEAN CORPUSCULAR HGB CONC 33.4 g/dL (32.0-36.0); MEAN CORPUSCULAR VOLUME 103 fl (80-97); MONOCYTES % (AUTO) 15.2 % (3-13); PLATELET COUNT 371 10^3/uL (150-450); RED BLOOD COUNT 1.78 10^6/uL (3.72-5.28); SEGMENTED NEUTROPHILS % (AUTO) 70.1 % (42-78); TOTAL CELLS COUNTED % (AUTO) 100 %; WHITE BLOOD COUNT 8.2 10^3/uL (4.0-10.5)
[2018-11-14 21:46] LABS: HEMOGLOBIN 6.2 g/dL (12.0-15.5)
[2018-11-14] MEDS ORDERED: NORMAL SALINE 250 ML IV PRN (21:55)
[2018-11-14 21:57] LABS: ALANINE AMINOTRANSFERASE 49 U/L (9-52); ALKALINE PHOSPHATASE 103 U/L (38-126); ANION GAP 9 (5-19); ASPARTATE AMINO TRANSFERASE 54 U/L (14-36); BILIRUBIN,DIRECT 0.2 mg/dL (0.0-0.4); BILIRUBIN,TOTAL 0.2 mg/dL (0.2-1.3); BLOOD UREA NITROGEN 33 mg/dL (7-20); CALCIUM 9.3 mg/dL (8.4-10.2); CARBON DIOXIDE 19 mmol/L (22-30); CHLORIDE 109 mmol/L (98-107); GLUCOSE 86 mg/dL (75-110); POTASSIUM 5.4 mmol/L (3.6-5.0); TOTAL PROTEIN 6.1 g/dL (6.3-8.2)
[2018-11-14] MEDS ORDERED: ONDANSETRON HCL INJ/PF 4 MG/2 ML SDV IV ONE (22:50)
[2018-11-14] MEDS ORDERED: HYDROMORPHONE HCL INJ/PF 2 MG/ML AMPULE IV ONE (22:50)
[2018-11-15] MEDS ORDERED: ALPRAZOLAM 0.5 MG TABLET PO ONE (03:07)
[2018-11-15 03:55] VITALS: BP 108/53
--- NOTE | 2018-11-15 03:56 | ER Document Report ---
ED General - General Chief Complaint: Abnormal Lab Results Stated Complaint: ABNORMAL LABS Time Seen by Provider: 11/14/18 19:44 Primary Care Provider: MAY NEWTON DO [Primary Care Provider] - Follow up as needed TRAVEL OUTSIDE OF THE [place] IN LAST 30 DAYS: No - HPI Notes: Patient is a 68-year-old female with multiple medical issues, including kidney disease, lung cancer, known history of PE diagnosed recently, who presents to the emergency department for evaluation. She has known low hemoglobin. She is currently on Eliquis and aspirin as started after her PE. She states she has had melena daily for about the last 7 to 10 days. She states she is really only had one episode daily, they are always in the morning. She denies any abdominal pain. She denies any frequent heartburn. She denies taking NSAIDs frequently. She states she was dizzy a few days ago, but denies any chest pain, shortness of breath beyond her baseline, or any other new acute symptoms. - Related Data Allergies/Adverse Reactions: Tetanus Vaccines and Toxoid Allergy (Unknown, Verified 11/14/18 19:46) peanut Allergy (Verified 11/14/18 19:46) Penicillins Allergy (Verified 11/14/18 19:46) Past Medical History - General Information source: Patient - Social History Smoking Status: Former Smoker Family History: Reviewed & Not Pertinent Patient has suicidal ideation: No Patient has homicidal ideation: No - Past Medical History Cardiac Medical History: Reports: Hx Hypercholesterolemia, Hx Hypertension Denies: Hx Congestive Heart Failure, Hx Heart Attack Pulmonary Medical History: Reports: Hx Bronchitis Denies: Hx Asthma, Hx COPD, Hx Pneumonia, Hx Tuberculosis Neurological Medical History: Denies: Hx Seizures Renal/ Medical History: Denies: Hx End Stage Renal Disease, Hx Kidney Stones, Hx Peritoneal Dialysis Malignancy Medical History: Reports: Hx Lung Cancer, Hx Skin Cancer GI Medical History: Denies: Hx Cirrhosis, Hx Gastroesophageal Reflux Disease, Hx Ulcer Musculoskeletal Medical History: Reports Hx Arthritis, Denies Hx Multiple Sclerosis, Reports Hx Musculoskeletal Trauma Psychiatric Medical History: Denies: Hx Bipolar Disorder, Hx Depression, Hx Schizophrenia Past Surgical History: Reports: Hx Orthopedic Surgery, Hx Vascular Surgery - port accessed - Immunizations Hx Diphtheria, Pertussis, Tetanus Vaccination: Yes Review of Systems - Review of Systems Constitutional: See HPI EENT: No symptoms reported Cardiovascular: No symptoms reported Respiratory: No symptoms reported Gastrointestinal: See HPI Genitourinary: No symptoms reported Musculoskeletal: No symptoms reported Skin: No symptoms reported Neurological/Psychological: No symptoms reported Physical Exam - Vital signs Vitals: Temp Pulse Resp BP Pulse Ox 98.2 F 89 18 148/73 H 94 11/14/18 18:12 11/14/18 18:12 11/14/18 18:12 11/14/18 18:12 11/14/18 18:12 - Notes Notes: Pale, frail-appearing 68-year-old female, in no acute distress. Vital signs reviewed, please refer to chart. Patient is normocephalic, atraumatic. Pupils equal round, reactive to light. Neck is supple without meningismus. Heart is regular rate and rhythm. Lungs reveal diminished breath sounds but no wheezes, rales, rhonchi. Abdomen is soft, nontender, normoactive bowel sounds throughout. Extremities without cyanosis, clubbing. Peripheral pulses are equal. Skin is warm and dry. Patient is awake, alert, neurological exam is nonfocal. Course - Re-evaluation Re-evalutation: 11/15/18 03:57 Patient presented to the emergency department for evaluation. She had a known significant anemia. Her hemoglobin is found to be 6.2 here. The patient is currently on blood thinners because of a pulmonary embolus. I reviewed her CT scan which this was diagnosed. There is extensive clot with concern for pulmonary infarction. The patient is adamant that she will not stay in the hospital. I explained to her the current risks she is facing, with excessive blood loss, low hemoglobin, continued bleeding, untreated pulmonary embolus. I explained to her that she is at significant risk of , heart attack, stroke given these multiple medical issues. She states she understands these risks and still does not wish to stay in the hospital. She did agree to sign an AGAINST MEDICAL ADVICE form. She was given 2 units of packed red blood cells here. She does not want to wait for a recheck. She wants to be discharged home. She is currently on Protonix, although she is unsure as to the dose. I told her she should be on 40 mg twice daily. She understands this. She also understands that if at any point she changes her mind regarding admission she can return to the ED. Certainly if she develops new symptoms she needs to return immediately. Otherwise she has a follow-up appoint with her doctor already next week. She is again adamantly demanding to be discharged. She will do so AGAINST MEDICAL ADVICE. - Vital Signs Vital signs: Temp Pulse Resp BP Pulse Ox 98.0 F 90 17 108/53 L 97 11/15/18 03:55 11/15/18 03:55 11/15/18 03:55 11/15/18 03:55 11/15/18 03:55 - Laboratory Result Diagrams: 11/14/18 21:16 11/14/18 21:16 Laboratory results interpreted by me: 11/14/18 11/14/18 11/14/18 19:58 21:16 21:16 RBC 1.78 L Hgb 6.2 L Hct 18.4 L MCV 103 H MCH 34.5 H RDW 16.0 H Monocytes % 15.2 H Potassium 5.4 H Chloride 109 H Carbon Dioxide 19 L BUN 33 H Creatinine 1.58 H Est GFR ( Amer) 39 L Est GFR (Non-Af Amer) 32 L AST 54 H Total Protein 6.1 L Albumin 3.0 L Urine Blood MODERATE H Ur Leukocyte Esterase SMALL H Crossmatch 11/14/18 21:16 RBC Hgb Hct MCV MCH RDW Monocytes % Potassium Chloride Carbon Dioxide BUN Creatinine Est GFR ( Amer) Est GFR (Non-Af Amer) AST Total Protein Albumin Urine Blood Ur Leukocyte Esterase Crossmatch See Detail Discharge - Discharge Clinical Impression: Gastrointestinal hemorrhage with melena, Blood loss anemia, Pulmonary embolism Disposition: AGAINST MEDICAL ADVICE Additional Instructions: Stop your Eliquis and aspirin. Follow-up with your doctor as scheduled next week. You have elected to leave AGAINST MEDICAL ADVICE. You have voiced un derstanding of the significant risk of this, including heart attack, stroke, . If it any point you change your mind, return immediately to the emergency department for reevaluation. Referrals: MAY NEWTON, [Primary Care Provider] - Follow up as needed
== END 2018-11-15 04:30 | disposition left against medical advice (07) ==
LOC: ER 17:33
DX: I26.99 Other pulmonary embolism without acute cor pulmonale (principal); K92.1 Melena; D50.0 Iron deficiency anemia secondary to blood loss (chronic); Z79.01 Long term (current) use of anticoagulants; Z79.899 Other long term (current) drug therapy; Z79.82 Long term (current) use of aspirin
CPT/HCPCS: 99283; 96374; 96375; 86900; 86901; 36415; 36430; 86850; 85025; 80053; 81001; 86920; P9016; A9270 ×2; J1170; C9113; J2405; S0164

== ENCOUNTER 2018-11-15 11:31 | Observation (INO) | payer MEDICARE, OTHER ==
--- NOTE | 2018-11-15 11:56 | ER Document Report ---
ED Medical Screen (RME) - General Chief Complaint: Accidental Overdose Stated Complaint: POSSIBLE OVERDOSE Time Seen by Provider: 11/15/18 11:42 Primary Care Provider: MAY NEWTON DO [Primary Care Provider] - Follow up as needed Mode of Arrival: Ambulatory Information source: Patient TRAVEL OUTSIDE OF THE [place] IN LAST 30 DAYS: No - HPI Patient complains to provider of: Accidentally took 3 Eliquis Notes: 11/15/18 11:54 Patient here with her at the bedside. The patient was here last night with a low hemoglobin of 6.2. She was given blood. She ended up leaving AGAINST MEDICAL ADVICE. The patient has a history of stage IV lung cancer as well as recent diagnosis of pulmonary embolism. She is currently on Eliquis. She was seen last night for rectal bleeding and low hemoglobin. She was given blood. Again, she left AMA. This morning she accidentally took 3 Eliquis which are 5 mg apiece. She denies any other bleeding, but states she has not had a bowel movement this morning. Exam No distress, nontoxic appearing. Pale. Movement of all 4 extremities. No active bleeding. Plan CBC, CMP, coags. We will discuss the case with poison control to determine if any further action is needed. An initial examination was made on the patient as part of the triage process, a nd it was determined a more comprehensive evaluation was necessary. Initial labs were ordered and patient was transferred to another provider in the ED who assumed care and finished evaluation and plan. - Related Data Allergies/Adverse Reactions: Tetanus Vaccines and Toxoid Allergy (Unknown, Verified 11/15/18 11:37) metoprolol Allergy (Verified 11/15/18 11:37) Penicillins Allergy (Verified 11/15/18 11:37) Past Medical History - Past Medical History Cardiac Medical History: Reports: Hx Hypercholesterolemia, Hx Hypertension Denies: Hx Congestive Heart Failure, Hx Heart Attack Pulmonary Medical History: Reports: Hx Bronchitis Denies: Hx Asthma, Hx COPD, Hx Pneumonia, Hx Tuberculosis Neurological Medical History: Denies: Hx Seizures Renal/ Medical History: Denies: Hx End Stage Renal Disease, Hx Kidney Stones, Hx Peritoneal Dialysis Malignancy Medical History: Reports: Hx Lung Cancer, Hx Skin Cancer GI Medical History: Denies: Hx Cirrhosis, Hx Gastroesophageal Reflux Disease, Hx Ulcer Musculoskeltal Medical History: Reports Hx Arthritis, Denies Hx Multiple Sclerosis, Reports Hx Musculoskeletal Trauma Psychiatric Medical History: Denies: Hx Bipolar Disorder, Hx Depression, Hx Schizophrenia Past Surgical History: Reports: Hx Orthopedic Surgery, Hx Vascular Surgery - port accessed - Immunizations Hx Diphtheria, Pertussis, Tetanus Vaccination: Yes History of Influenza Vaccine for 04/2017 - 09/2017 Season: Yes Influenza Administration Date for 04/2017 - 09/2017 Season: 04/16/17 Physical Exam - Vital signs Vitals: Temp Pulse Resp BP Pulse Ox 97.3 F 79 20 143/50 H 96 11/15/18 11:40 11/15/18 11:40 11/15/18 11:40 11/15/18 11:40 11/15/18 11:40 Course - Vital Signs Vital signs: Temp Pulse Resp BP Pulse Ox 97.3 F 79 20 143/50 H 96 11/15/18 11:40 11/15/18 11:40 11/15/18 11:40 11/15/18 11:40 11/15/18 11:40 Doctor's Discharge - Discharge Referrals: MAY NEWTON DO [Primary Care Provider] - Follow up as needed
[2018-11-15 12:54] LABS: ABSOLUTE BASOPHILS # (AUTO) 0.1 10^3/uL (0.0-0.2); ABSOLUTE LYMPHOCYTES (AUTO) 0.8 10^3/uL (0.5-4.7); ABSOLUTE MONOCYTES (AUTO) 1.2 10^3/uL (0.1-1.4); ABSOLUTE NEUT (AUTO) 4.9 10^3/uL (1.7-8.2); BASOPHILS % (AUTO) 1.3 % (0-2); EOSINOPHILS % (AUTO) 0.5 % (0-6); HEMATOCRIT 25.2 % (36.0-47.0); LYMPHOCYTES % (AUTO) 11.3 % (13-45); MEAN CORPUSCULAR HEMOGLOBIN 32.8 pg (27.0-33.4); MEAN CORPUSCULAR HGB CONC 33.7 g/dL (32.0-36.0); MONOCYTES % (AUTO) 17.5 % (3-13); PLATELET COUNT 304 10^3/uL (150-450); RED BLOOD COUNT 2.59 10^6/uL (3.72-5.28); RED CELL DISTRIBUTION WIDTH 17.1 % (11.5-14.0); SEGMENTED NEUTROPHILS % (AUTO) 69.4 % (42-78); TOTAL CELLS COUNTED % (AUTO) 100 %
[2018-11-15 12:56] LABS: HEMOGLOBIN 8.5 g/dL (12.0-15.5)
[2018-11-15 12:57] LABS: MEAN CORPUSCULAR VOLUME 97 fl (80-97)
[2018-11-15 13:00] LABS: INTERNATIONAL RATION (INR) 1.75; PROTHROMBIN TIME 21.2 SEC (11.4-15.4)
[2018-11-15 13:01] LABS: PARTIAL THROMBOPLASTIN TIME 53.9 SEC (23.5-35.8)
[2018-11-15 13:32] LABS: ALANINE AMINOTRANSFERASE 44 U/L (9-52); ALBUMIN 2.7 g/dL (3.5-5.0); ALKALINE PHOSPHATASE 97 U/L (38-126); ANION GAP 9 (5-19); ASPARTATE AMINO TRANSFERASE 44 U/L (14-36); BILIRUBIN,DIRECT 0.3 mg/dL (0.0-0.4); BILIRUBIN,TOTAL 0.3 mg/dL (0.2-1.3); BLOOD UREA NITROGEN 30 mg/dL (7-20); CALCIUM 8.9 mg/dL (8.4-10.2); CARBON DIOXIDE 22 mmol/L (22-30); CHLORIDE 109 mmol/L (98-107); GLUCOSE 101 mg/dL (75-110); POTASSIUM 5.2 mmol/L (3.6-5.0); SODIUM 139.5 mmol/L (137-145); TOTAL PROTEIN 5.6 g/dL (6.3-8.2)
--- NOTE | 2018-11-15 14:18 | ER Document Report ---
Entered by RHONA RIBERA SCRIBE 11/15/18 1253 Acting as scribe for:KATIE LOZANO DO ED General - General Chief Complaint: Accidental Overdose Stated Complaint: POSSIBLE OVERDOSE Time Seen by Provider: 11/15/18 11:42 Mode of Arrival: Ambulatory Notes: 68-year-old female who presents to the emergency department today after taking (x3) extra Eliquis today on accident just prior to arrival. Patient was seen here yesterday for rectal bleeding with bloody bowel movements and was found to have a hemoglobin in the low 6's. Patient was transfused 2 units of blood yesterday but refused to stay and signed out AGAINST MEDICAL ADVICE. When the patient signed out AGAINST MEDICAL ADVICE she was advised to hold off on taking her Eliquis (which she is on for a PE). Patient reports that today in a mixup with her , accidentally took x3 Eliquis pills which is x2 more than she had been taking. Patient denies any symptoms other than feeling "tired". Patient has not had any further bowel movements since discharge. Denies suicidal or homicidal ideation. TRAVEL OUTSIDE OF THE [place] IN LAST 30 DAYS: No - Related Data Allergies/Adverse Reactions: Tetanus Vaccines and Toxoid Allergy (Unknown, Verified 11/15/18 11:37) metoprolol Allergy (Verified 11/15/18 11:37) Penicillins Allergy (Verified 11/15/18 11:37) Past Medical History - General Information source: Patient - Social History Smoking Status: Former Smoker Cigarette use (# per day): No Family History: Reviewed & Not Pertinent Patient has suicidal ideation: No Patient has homicidal ideation: No - Past Medical History Cardiac Medical History: Reports: Hx Hypercholesterolemia, Hx Hypertension Pulmonary Medical History: Reports: Hx Bronchitis Malignancy Medical History: Reports: Hx Lung Cancer, Hx Skin Cancer Musculoskeletal Medical History: Reports Hx Arthritis, Reports Hx Musculoskeletal Trauma Past Surgical History: Reports: Hx Orthopedic Surgery, Hx Vascular Surgery - port accessed - Immunizations Hx Diphtheria, Pertussis, Tetanus Vaccination: Yes Review of Systems - Review of Systems Constitutional: See HPI, Other - took extra eloquis EENT: No symptoms reported Cardiovascular: No symptoms reported Respiratory: No symptoms reported Gastrointestinal: See HPI. denies: Blood streaked bowels, Black stools Genitourinary: No symptoms reported Female Genitourinary: No symptoms reported Musculoskeletal: No symptoms reported Skin: No symptoms reported Hematologic/Lymphatic: No symptoms reported Neurological/Psychological: No symptoms reported -: Yes All other systems reviewed and negative Physical Exam - Vital signs Vitals: Temp Pulse Resp BP Pulse Ox 97.3 F 79 20 143/50 H 96 11/15/18 11:40 11/15/18 11:40 11/15/18 11:40 11/15/18 11:40 11/15/18 11:40 - Notes Notes: PHYSICAL EXAM GENERAL: Alert, interacts well. No acute distress. HEAD: Normocephalic, atraumatic. EYES: Pupils equal, round, and reactive to light. Extraocular movements intact. ENT: Oral mucosa moist, tongue midline. NECK: Full range of motion. Supple. Trachea midline. CHEST: Palpable left anterior chest wall port which appears to be in good position. LUNGS: Clear to auscultation bilaterally, no wheezes, rales, or rhonchi. No respiratory distress. HEART: Regular rate and rhythm. No murmurs, gallops, or rubs. ABDOMEN: Soft, non-tender. Non-distended. Bowel sounds present in all 4 quadrants. No guarding, rigidity, or rebound. EXTREMITIES: Moves all 4 extremities spontaneously. No edema, radial and yariel salis pedis pulses 2/4 bilaterally. No cyanosis. NEUROLOGICAL: Alert and oriented x3. Normal speech. PSYCH: Normal affect, normal mood. SKIN: Warm, dry, normal turgor. No rashes or lesions noted. Course - Re-evaluation Re-evalutation: 11/15/18 14:03 CBC shows anemia with hemoglobin 8.5 improved since yesterday when she received 2 units of PRBCs previously her hemoglobin was 6.2, INR is prolonged at 1.75 consistent with use of Eliquis, CMP shows slightly elevated potassium at 5.2, chronic renal failure otherwise unremarkable. Discussed case with poison control, poison control states that given the fact that she is already having some GI bleeding and the fact that she took 3 Eliquis they would recommend she be observed overnight and to have serial hemoglobins performed. 11/15/18 14:[address] Joseph and he agrees to accept the patient to his service on the telemetry care unit. - Vital Signs Vital signs: Temp Pulse Resp BP Pulse Ox 98.7 F 83 14 104/58 L 99 11/16/18 12:46 11/16/18 12:46 11/16/18 12:46 11/16/18 12:46 11/16/18 12:46 - Laboratory Result Diagrams: 11/16/18 04:15 11/16/18 04:15 Laboratory results interpreted by me: 11/15/18 11/15/18 11/15/18 12:14 12:14 12:14 RBC 2.59 L Hgb 8.5 L D Hct 25.2 L RDW 17.1 H Lymphocytes % 11.3 L Monocytes % 17.5 H PT 21.2 H APTT 53.9 H Potassium 5.2 H Chloride 109 H BUN 30 H Creatinine 1.44 H Est GFR ( Amer) 44 L Est GFR (Non-Af Amer) 36 L AST 44 H Total Protein 5.6 L Albumin 2.7 L Discharge - Discharge Clinical Impression: On apixaban therapy, CKD (chronic kidney disease) stage 3, GFR 30-59 ml/min, Blood loss anemia Accidental overdose Qualifiers: Encounter type: initial encounter Qualified Code(s): T50.901A - Poisoning by unspecified drugs, medicaments and biological substances, accidental (unintentional), initial encounter GI bleed Qualifiers: GI bleed type/associated pathology: unspecified gastrointestinal hemorrhage type Qualified Code(s): K92.2 - Gastrointestinal hemorrhage, unspecified Stage 4 lung cancer Qualifiers: Laterality: unspecified laterality Qualified Code(s): C34.90 - Malignant neoplasm of unspecified part of unspecified bronchus or lung Condition: Good Disposition: ADMITTED OBSERVATION Admitting Provider: Jake (Hospitalist) Unit Admitted: Telemetry I personally performed the services described in the documentation, reviewed and edited the documentation which was dictated to the scribe in my presence, and it accurately records my words and actions.
[2018-11-15] MEDS ORDERED: NITROGLYCERIN 0.4 MG/TAB 25 TAB/BOTTLE SL PRN (15:02)
[2018-11-15] MEDS ORDERED: PROCHLORPERAZINE MALEATE 10 MG TABLET PO PRN (15:02)
[2018-11-15] MEDS ORDERED: ONDANSETRON HCL INJ/PF 4 MG/2 ML SDV IV PRN (15:06)
[2018-11-15] MEDS ORDERED: (PENDING PHARMACY ID) (Potassium Chloride [Klor-Con M20] 20 MEQ) PO SCH (15:15)
--- NOTE | 2018-11-15 15:40 | PDOC H&P ---
History of Present Illness Admission Date/PCP: 11/15/18 15:20 MAY NEWTON DO Patient complains of: Took 3 Eliquis medications at one time History of Present Illness: ONI ELISE is a 68 year old female with history of bleeding ulcer found in 2006 after EGD, lung cancer, pulmonary embolism, hypertension, anxiety disorder came to the emergency room with complaints of taking 3 Eliquis pills this morning. Patient here in the emergency room last night refused to stay in the hospital received 2 units of blood transfusion for low hemoglobin she was advise d not to take Eliquis but by mistake she took 3 Eliquis tablets this morning. The brought her here for further management. Patient is asymptomatic. ED got in touch with poison control they recommended for the patient to be admitted in the hospital for observation. Last bowel movement is yesterday. Denies any nausea vomiting abdominal pains. denies bruises denies bleeding gums. Denies any blood in the urine. Past Medical History Cardiac Medical History: Reports: Hyperlipidema, Hypertension Denies: Congestive Heart Failure, Myocardial Infarction Pulmonary Medical History: Reports: Bronchitis Denies: Asthma, Chronic Obstructive Pulmonary Disease (COPD), Pneumonia, Tuberculosis Neurological Medical History: Denies: Seizures Renal/ Medical History: Denies: End Stage Renal Disease Malignancy Medical History: Reports: Lung Cancer, Skin Cancer GI Medical History: Denies: Cirrhosis, Gastroesophageal Reflux Disease Musculoskeltal Medical History: Reports: Arthritis Psychiatric Medical History: Denies: Bipolar Disorder, Depression Hematology: Reports: Anemia Denies: Bleeding Tendencies Past Surgical History Past Surgical History: Reports: Orthopedic Surgery, Vascular Surgery - port a ccessed Social History Information Source: Patient Smoking Status: Former Smoker Frequency of Alcohol Use: Rare Hx Recreational Drug Use: No Drugs: None - Advance Directive Resuscitation Status: Full Code Family History Family History: Reviewed & Not Pertinent Parental Family History Reviewed: Yes Children Family History Reviewed: Yes Sibling(s) Family History Reviewed.: Yes Medication/Allergy Home Medications: Alendronate Sodium [Fosamax 70 mg Tablet] 70 mg PO TONG@0600 11/15/18 Alprazolam [Xanax 0.5 mg Tablet] 1 mg PO Q12 11/15/18 Atorvastatin Calcium [Lipitor 80 mg Tablet] 80 mg PO QHS 11/15/18 Bupropion HCl [Wellbutrin Xl 300mg 24hr Tablet] 300 mg PO DAILY 11/15/18 Carvedilol [Coreg 12.5 mg Tablet] 12.5 mg PO Q12 11/15/18 Febuxostat [Uloric 80 mg Tablet] 80 mg PO DAILY 11/15/18 Folic Acid [Folvite 1 mg Tablet] 1 mg PO DAILY 11/15/18 Hydrocodone/Acetaminophen [[place] 7.5-325 mg Tablet] 1 tab PO Q8HP PRN 11/15/18 Magnesium Oxide [Mag-Ox 400 mg Tablet] 400 mg PO DAILY 11/15/18 Nitroglycerin [Nitrostat 0.4 mg (1/150 Gr) Tabs 25/Bottle] 0.4 mg SL Q5MP PRN 11/15/18 Pantoprazole Sodium [Protonix [address] Tablet] 40 mg PO DAILY 11/15/18 Phenytoin Sodium Extended [Dilantin 100 mg Capsule.er] 100 mg PO Q8 11/15/18 Potassium Chloride [Klor-Con M20] 20 meq PO DAILY 11/15/18 Prochlorperazine Maleate [Compazine 10 mg Tablet] 10 mg PO Q6HP PRN 11/15/18 Verapamil HCl [Verapamil ER] 240 mg PO Q12 11/15/18 Allergies/Adverse Reactions: Tetanus Vaccines and Toxoid Allergy (Unknown, Verified 11/15/18 11:37) metoprolol Allergy (Verified 11/15/18 11:37) Penicillins Allergy (Verified 11/15/18 11:37) Review of Systems Eyes: ABSENT: visual disturbances Ears: ABSENT: hearing changes Nose, Mouth, and Throat: ABSENT: sore throat Cardiovascular: ABSENT: dyspnea on exertion, palpitations Respiratory: ABSENT: dyspnea Gastrointestinal: ABSENT: abdominal pain, constipation, diarrhea, hematemesis, hematochezia, nausea, vomiting Neurological: ABSENT: abnormal gait, abnormal speech, confusion, dizziness, focal weakness, syncope Psychiatric: ABSENT: anxiety, depression, homidical ideation, suicidal ideation Physical Exam Vital Signs: Temp Pulse Resp BP Pulse Ox 97.3 F 79 20 143/50 H 96 11/15/18 11:40 11/15/18 11:40 11/15/18 11:40 11/15/18 11:40 11/15/18 11:40 Intake & Output 11/14/18 11/15/18 11/16/18 06:59 06:59 06:59 Weight 68.9 kg General appearance: PRESENT: no acute distress Head exam: PRESENT: atraumatic Eye exam: PRESENT: PERRLA Neck exam: ABSENT: carotid bruit, JVD, lymphadenopathy, thyromegaly Respiratory exam: PRESENT: clear to auscultation davide. ABSENT: rales, rhonchi, wheezes Cardiovascular exam: PRESENT: tachycardia GI/Abdominal exam: PRESENT: normal bowel sounds, soft. ABSENT: distended, guarding, mass, organolmegaly, rebound, tenderness Rectal exam: PRESENT: deferred Extremities exam: PRESENT: full ROM. ABSENT: calf tenderness, clubbing, pedal edema Neurological exam: PRESENT: alert, awake, oriented to person, oriented to place, oriented to time, oriented to situation, CN II-XII grossly intact. ABSENT: motor sensory deficit Psychiatric exam: PRESENT: appropriate affect, normal mood. ABSENT: homicidal ideation, suicidal ideation Results Laboratory Results: 11/15/18 12:14 11/15/18 12:14 11/15/18 11/15/18 12:14 12:14 WBC 7.0 RBC 2.59 L Hgb 8.5 L D Hct 25.2 L MCV 97 D MCH 32.8 MCHC 33.7 RDW 17.1 H Plt Count 304 Seg Neutrophils % 69.4 Lymphocytes % 11.3 L Monocytes % 17.5 H Eosinophils % 0.5 Basophils % 1.3 Absolute Neutrophils 4.9 Absolute Lymphocytes 0.8 Absolute Monocytes 1.2 Absolute Eosinophils 0.0 Absolute Basophils 0.1 Sodium 139.5 Potassium 5.2 H Chloride 109 H Carbon Dioxide 22 Anion Gap 9 BUN 30 H Creatinine 1.44 H Est GFR ( Amer) 44 L Est GFR (Non-Af Amer) 36 L Glucose 101 Calcium 8.9 Total Bilirubin 0.3 AST 44 H ALT 44 Alkaline Phosphatase 97 Total Protein 5.6 L Albumin 2.7 L Assessment and Plan - Diagnosis (1) Accidental overdose Qualifiers: Encounter type: initial encounter Qualified Code(s): T50.901A - Poisoning by unspecified drugs, medicaments and biological substances, accidental (unintentional), initial encounter Is this a current diagnosis for this admission?: Yes Plan: 11/15/2018-patient took 3 Eliquis tablets this morning. Patient was here last night for hemoglobin in the 6's, received 2 units of PRBC despite of best efforts by the ER physicians is signed AMA went home. She is supposed to not to take Eliquis but unfortunately is to take 3 tablets this morning has been b rought her here for further evaluation. She is going to be admitted to telemetry under observation. To repeat the labs tomorrow.to Look for signs of bleeding. GI prophylaxis initiated DVT prophylaxis on hold. Presently on SCDs. Plan to restart her home medications except Eliquis. Patient is admitted to telemetry. (2) Stage 4 malignant neoplasm of lung Qualifiers: Laterality: unspecified laterality Qualified Code(s): C34.90 - Malignant neoplasm of unspecified part of unspecified bronchus or lung Is this a current diagnosis for this admission?: No Plan: 11/15/2018-patient has stage IV lung cancer. She is supposed to have a PET scan last Monday because the patient broke down it was rescheduled for next Monday. Patient underwent chemotherapy for lung cancer. sHe follows with oncologist at [facility]. (3) Pulmonary embolism Is this a current diagnosis for this admission?: No Plan: 11/15/2018-patient has history of pulmonary embolism on Eliquis because of the low hemoglobins and Eliquis toxicity medication is on hold. To closely watch hemoglobin today and tomorrow. (4) HTN (hypertension) Is this a current diagnosis for this admission?: No Plan: 11/15/2018-blood pressure is 143/50. With heart rate of 79. Blood pressure is relatively controlled. Plan to restart her home medications. - Time Time Spent with patient: 25-34 minutes Smoking Cessation Education: 3 to 10 minutes Medications reviewed and adjusted accordingly: Yes Anticipated discharge: Home
[2018-11-15] MEDS: POTASSIUM CHLORIDE 10 MEQ CAPSULE.ER PO SCH (16:36)
[2018-11-15] MEDS: FOLIC ACID 1 MG TABLET PO SCH (16:42)
[2018-11-15] MEDS: MAGNESIUM OXIDE 400 MG TABLET PO SCH (16:42)
[2018-11-15] MEDS: PANTOPRAZOLE SODIUM 40 MG TABLET.DR PO SCH (16:42)
[2018-11-15] MEDS: PHENYTOIN SODIUM EXTENDED 100 MG CAPSULE PO SCH ×2 (16:42→22:43)
[2018-11-15] MEDS: ALPRAZOLAM 0.5 MG TABLET PO SCH (16:45)
[2018-11-15] MEDS: CARVEDILOL 12.5 MG TABLET PO SCH (18:10)
[2018-11-15] MEDS: HYDROCODONE/ACETAMINOPHEN 7.5-325 MG TABLET PO PRN (18:10)
[2018-11-15] MEDS: VERAPAMIL HCL 240 MG TABLET.SA PO SCH (18:10)
[2018-11-15] MEDS: FEBUXOSTAT 80 MG TABLET PO SCH (18:10)
[2018-11-15] MEDS ORDERED: ATORVASTATIN CALCIUM 80 MG TABLET PO SCH (22:00)
[2018-11-15] MEDS: BUPROPION HCL 100 MG TABLET PO SCH (22:43)
[2018-11-16 04:48] LABS: ABSOLUTE BASOPHILS # (AUTO) 0.1 10^3/uL (0.0-0.2); ABSOLUTE LYMPHOCYTES (AUTO) 0.6 10^3/uL (0.5-4.7); ABSOLUTE MONOCYTES (AUTO) 0.9 10^3/uL (0.1-1.4); ABSOLUTE NEUT (AUTO) 5.4 10^3/uL (1.7-8.2); BASOPHILS % (AUTO) 0.8 % (0-2); EOSINOPHILS % (AUTO) 0.5 % (0-6); HEMATOCRIT 24.6 % (36.0-47.0); HEMOGLOBIN 8.3 g/dL (12.0-15.5); LYMPHOCYTES % (AUTO) 9.2 % (13-45); MEAN CORPUSCULAR HEMOGLOBIN 32.9 pg (27.0-33.4); MEAN CORPUSCULAR HGB CONC 33.8 g/dL (32.0-36.0); MEAN CORPUSCULAR VOLUME 97 fl (80-97); MONOCYTES % (AUTO) 13.4 % (3-13); PLATELET COUNT 263 10^3/uL (150-450); RED BLOOD COUNT 2.53 10^6/uL (3.72-5.28); RED CELL DISTRIBUTION WIDTH 17.1 % (11.5-14.0); SEGMENTED NEUTROPHILS % (AUTO) 76.1 % (42-78); TOTAL CELLS COUNTED % (AUTO) 100 %
[2018-11-16 05:16] LABS: ALANINE AMINOTRANSFERASE 43 U/L (9-52); ALBUMIN 2.7 g/dL (3.5-5.0); ALKALINE PHOSPHATASE 89 U/L (38-126); ANION GAP 7 (5-19); ASPARTATE AMINO TRANSFERASE 38 U/L (14-36); BILIRUBIN,DIRECT 0.2 mg/dL (0.0-0.4); BILIRUBIN,TOTAL 0.2 mg/dL (0.2-1.3); BLOOD UREA NITROGEN 25 mg/dL (7-20); CALCIUM 9.5 mg/dL (8.4-10.2); CARBON DIOXIDE 22 mmol/L (22-30); CHLORIDE 113 mmol/L (98-107); CHOLESTEROL 110.26 mg/dL (0-200); GLUCOSE 96 mg/dL (75-110); POTASSIUM 4.9 mmol/L (3.6-5.0); SODIUM 141.9 mmol/L (137-145); TOTAL PROTEIN 5.5 g/dL (6.3-8.2); TRIGLYCERIDES 178 mg/dL (<150)
[2018-11-16] MEDS: HYDROCODONE/ACETAMINOPHEN 7.5-325 MG TABLET PO PRN (05:26)
[2018-11-16 05:27] LABS: DIRECT LDL 52 mg/dL (<100)
[2018-11-16] MEDS: ALPRAZOLAM 0.5 MG TABLET PO SCH (05:28)
[2018-11-16] MEDS: PHENYTOIN SODIUM EXTENDED 100 MG CAPSULE PO SCH (05:28)
[2018-11-16] MEDS: BUPROPION HCL 100 MG TABLET PO SCH (05:28)
[2018-11-16] MEDS: VERAPAMIL HCL 240 MG TABLET.SA PO SCH (05:28)
[2018-11-16 05:31] LABS: VLDL CHOLESTEROL 35.6 mg/dL (10-31)
[2018-11-16] MEDS: CARVEDILOL 12.5 MG TABLET PO SCH (05:33)
[2018-11-16] MEDS: FOLIC ACID 1 MG TABLET PO SCH (09:36)
[2018-11-16] MEDS: FEBUXOSTAT 80 MG TABLET PO SCH (09:36)
[2018-11-16] MEDS: PANTOPRAZOLE SODIUM 40 MG TABLET.DR PO SCH (09:36)
[2018-11-16] MEDS: POTASSIUM CHLORIDE 10 MEQ CAPSULE.ER PO SCH (09:36)
[2018-11-16] MEDS: MAGNESIUM OXIDE 400 MG TABLET PO SCH (09:37)
[2018-11-16 12:50] VITALS: BP 104/58
--- NOTE | 2018-11-17 21:30 | PDOC DISCHARGE SUMMARY ---
General - Admit/Disc Date/PCP Admission Date/Primary Care Provider: 11/15/18 15:20 MAY NEWTON, DO Discharge Date: 11/16/18 - Discharge Diagnosis (1) Accidental overdose Is this a current diagnosis for this admission?: Yes Summary: Patient is asymptomatic this morning there is no evidence of bleeding either overtly or in the GI tract or urine. She is being followed closely by her primary care provider. In fact she has an appointment this afternoon that she will not be able to make. They have been following her hemoglobin closely. There is been no complications of the accidental overdose of Eliquis yesterday. Because of the pulmonary embolus I did instruct her to return to her scheduled dosing of Eliquis. (2) Stage 4 malignant neoplasm of lung Is this a current diagnosis for this admission?: No Summary: No active treatment during this admission. Very high likelihood that this contributed to the hypercoagulable state that caused her pulmonary embolus. (3) Pulmonary embolism Is this a current diagnosis for this admission?: No Summary: Recent diagnosis of pulmonary embolus. The patient had no evidence of bleeding and will return to her former Eliquis dosing. She is in a difficult position as she is anemic and this could be secondary to her ongoing malignancy as there is no evidence of bleeding. She does have history of gastric ulcer. She has an appointment with her primary care provider on November 20. (4) HTN (hypertension) Is this a current diagnosis for this admission?: No Summary: No changes in her medication regimen at this time. (5) Anemia Is this a current diagnosis for this admission?: Yes Summary: Patient was seen in the emergency department on the day prior to admission. Her hemoglobin was low and she was given 2 units of packed red blood cells. [facility] is monitoring her hemoglobin closely. There are multiple possible etiologies. She does have history of gastric ulcer in the past but there is been no reported melena. She is on Eliquis for a pulmonary embolus. She does have high risk due to the likely relationship between hypercoagulability and her lung cancer. I did print a copy of her blood work to bring to her primary care provider on November 20. She had an appointment today but will miss it. She will have blood work next week. If her hemoglobin drops then there certainly is risk for bleeding and she may benefit from endoscopy. - Additional Information Resuscitation Status: Full Code Discharge Diet: Cardiac Discharge Activity: Balance Activity w/Rest Home Medications: Alendronate Sodium [Fosamax 70 mg Tablet] 70 mg PO TONG@0600 11/15/18 Alprazolam [Xanax 0.5 mg Tablet] 1 mg PO Q12 11/15/18 Atorvastatin Calcium [Lipitor 80 mg Tablet] 80 mg PO QHS 11/15/18 Bupropion HCl [Wellbutrin Xl 300mg 24hr Tablet] 300 mg PO DAILY 11/15/18 Carvedilol [Coreg 12.5 mg Tablet] 12.5 mg PO Q12 11/15/18 Febuxostat [Uloric 80 mg Tablet] 80 mg PO DAILY 11/15/18 Folic Acid [Folvite 1 mg Tablet] 1 mg PO DAILY 11/15/18 Hydrocodone/Acetaminophen [[place] 7.5-325 mg Tablet] 1 tab PO Q8HP PRN 11/15/18 Magnesium Oxide [Mag-Ox 400 mg Tablet] 400 mg PO DAILY 11/15/18 Nitroglycerin [Nitrostat 0.4 mg (1/150 Gr) Tabs 25/Bottle] 0.4 mg SL Q5MP PRN 11/15/18 Pantoprazole Sodium [Protonix [address] Tablet] 40 mg PO DAILY 11/15/18 Phenytoin Sodium Extended [Dilantin 100 mg Capsule.er] 100 mg PO Q8 11/15/18 Potassium Chloride [Klor-Con M20] 20 meq PO DAILY 11/15/18 Prochlorperazine Maleate [Compazine 10 mg Tablet] 10 mg PO Q6HP PRN 11/15/18 Verapamil HCl [Verapamil ER] 240 mg PO Q12 11/15/18 History of Present Illness Patient complains of: Accidental overdose of Eliquis History of Present Illness: ONI ELISE is a 68 year old female with complex medical history including lung cancer and recent pulmonary embolus. She has been having low hemoglobin and unfortunately accidentally took too much Eliquis this morning. She also has a history of hypertension and anxiety. She presented to the emergency room the evening prior to admission. Was found to be anemic and received 2 units of packed red blood cells but refused to stay in the hospital. She returns today because of the accident will overdose. Poison control recommended admission for observation overnight. There is no evidence of active bleeding at the time of the initial assessment. She was referred to the hospital service for admission. Hospital Course Hospital Course: The patient had an unremarkable hospital course. No acute bleeding was noted. She will be discharged today and keep the follow-up appointment scheduled with her primary care physician next week. I did print a copy of her blood work to bring to that appointment for comparison as she expects to have more blood work done next week. Physical Exam Vital Signs: Temp Pulse Resp BP Pulse Ox 98.7 F 83 14 134/76 H 99 11/16/18 11:36 11/16/18 11:36 11/16/18 11:36 11/16/18 11:36 11/16/18 11:36 Intake & Output 11/15/18 11/16/18 11/17/18 06:59 06:59 06:59 Intake Total 640 790 Balance 640 790 Weight 68.9 kg General appearance: PRESENT: no acute distress, well-developed - Frail-appearing 68-year-old female looks older than her stated age. Head exam: PRESENT: atraumatic, normocephalic Eye exam: PRESENT: conjunctiva pale. ABSENT: scleral icterus Ear exam: PRESENT: normal external ear exam Mouth exam: PRESENT: moist, tongue midline Respiratory exam: PRESENT: clear to auscultation davide, symmetrical, unlabored. ABSENT: rales, rhonchi, tachypnea, wheezes Cardiovascular exam: PRESENT: RRR, +S1, +S2 GI/Abdominal exam: PRESENT: normal bowel sounds, soft. ABSENT: distended, guarding, tenderness Rectal exam: PRESENT: deferred Musculoskeletal exam: PRESENT: ambulatory, normal inspection Neurological exam: PRESENT: alert, awake, oriented to person, oriented to place, oriented to time, oriented to situation, CN II-XII grossly intact. ABSENT: motor sensory deficit Psychiatric exam: PRESENT: appropriate affect, normal mood. ABSENT: agitated, anxious Focused psych exam: ABSENT: delusional, restlessness Results Laboratory Results: 11/16/18 04:15 11/16/18 04:15 11/15/18 11/15/18 11/16/18 12:14 12:14 04:15 WBC 7.0 7.0 RBC 2.59 L 2.53 L Hgb 8.5 L D 8.3 L Hct 25.2 L 24.6 L MCV 97 D 97 MCH 32.8 32.9 MCHC 33.7 33.8 RDW 17.1 H 17.1 H Plt Count 304 263 Seg Neutrophils % 69.4 76.1 Lymphocytes % 11.3 L 9.2 L Monocytes % 17.5 H 13.4 H Eosinophils % 0.5 0.5 Basophils % 1.3 0.8 Absolute Neutrophils 4.9 5.4 Absolute Lymphocytes 0.8 0.6 Absolute Monocytes 1.2 0.9 Absolute Eosinophils 0.0 0.0 Absolute Basophils 0.1 0.1 Sodium 139.5 Potassium 5.2 H Chloride 109 H Carbon Dioxide 22 Anion Gap 9 BUN 30 H Creatinine 1.44 H Est GFR ( Amer) 44 L Est GFR (Non-Af Amer) 36 L Glucose 101 Calcium 8.9 Total Bilirubin 0.3 AST 44 H ALT 44 Alkaline Phosphatase 97 Total Protein 5.6 L Albumin 2.7 L Triglycerides Cholesterol LDL Cholesterol Direct VLDL Cholesterol HDL Cholesterol 11/16/18 04:15 WBC RBC Hgb Hct MCV MCH MCHC RDW Plt Count Seg Neutrophils % Lymphocytes % Monocytes % Eosinophils % Basophils % Absolute Neutrophils Absolute Lymphocytes Absolute Monocytes Absolute Eosinophils Absolute Basophils Sodium 141.9 Potassium 4.9 Chloride 113 H Carbon Dioxide 22 Anion Gap 7 BUN 25 H Creatinine 1.35 H Est GFR ( Amer) 47 L Est GFR (Non-Af Amer) 39 L Glucose 96 Calcium 9.5 Total Bilirubin 0.2 AST 38 H ALT 43 Alkaline Phosphatase 89 Total Protein 5.5 L Albumin 2.7 L Triglycerides 178 H Cholesterol 110.26 LDL Cholesterol Direct 52 VLDL Cholesterol 35.6 H HDL Cholesterol 43 11/15/18 11/15/18 11/15/18 15:52 15:52 21:56 Creatine Kinase 27 L 20 L CK-MB (CK-2) 0.47 NT-Pro-B Natriuret Pep 11/15/18 11/16/18 11/16/18 21:56 04:15 04:15 Creatine Kinase 22 L CK-MB (CK-2) 0.40 0.34 NT-Pro-B Natriuret Pep 11/16/18 04:15 Creatine Kinase CK-MB (CK-2) NT-Pro-B Natriuret Pep 1340 H Qualifiers - * PATIENT BEING DISCHARGED WITH ANY OF THE FOLLOWING DIAGNOSIS: No Acute Heart Failure Is this a Heart Failure Patient?: No Plan Time Spent: Greater than 30 Minutes
[2018-11-18] MEDS ORDERED: (PENDING PHARMACY ID) (Alendronate Sodium [Fosamax 70 Mg Tablet] 70 MG) PO SCH (06:00)
== END 2018-11-16 13:34 | disposition home or self-care (01) ==
LOC: ER 11:31 → EH 15:20 → 4S 18:22
PROVIDERS: ADMIT Internal Medicine; ATTEND Internal Medicine
DX: T45.521A Poisoning by antithrombotic drugs, accidental (unintentional), initial encounter (principal); C34.90 Malignant neoplasm of unspecified part of unspecified bronchus or lung; I26.99 Other pulmonary embolism without acute cor pulmonale; D50.0 Iron deficiency anemia secondary to blood loss (chronic); I12.9 Hypertensive chronic kidney disease with stage 1 through stage 4 chronic kidney disease, or unspecified chronic kidney disease; N18.3 Chronic kidney disease, stage 3 (moderate); F41.9 Anxiety disorder, unspecified; E78.5 Hyperlipidemia, unspecified; R00.0 Tachycardia, unspecified; K92.2 Gastrointestinal hemorrhage, unspecified; Z87.11 Personal history of peptic ulcer disease; Z79.899 Other long term (current) drug therapy; Z87.891 Personal history of nicotine dependence; Z95.828 Presence of other vascular implants and grafts
CPT/HCPCS: 36591; 99285; 36415 ×2; 82553 ×2; 82550 ×2; 85025 ×2; 85610; 85730; 80053 ×2; 83036; 80061; 83880; G0378 ×3; A9270 ×20; J3490 ×2; J1642

== ENCOUNTER → 2018-11-20 | Outpatient (CLI) | payer MEDICARE, OTHER | LOC: RAD 11-11 14:25 | PROVIDERS: ATTEND Internal Medicine Medical Oncology | DX: C34.11 Malignant neoplasm of upper lobe, right bronchus or lung (principal) ==

== ENCOUNTER 2018-12-03 09:32 | Day surgery (SDC) | payer MEDICARE, OTHER ==
[~2018-12-03 09:32] MED LIST changes: -ACETAMINOPHEN 325 MG TABLET PO PRN; -DIPHENHYDRAMINE HCL 25 MG CAPSULE PO PRN; -FUROSEMIDE INJ/PF 20 MG/2 ML SDV IV PRN; +PROPOFOL INJ 200 MG/20 ML VIAL IV ONE
[2018-12-03 12:53] VITALS: BP 157/59
--- NOTE | 2018-12-03 14:11 | Operative Report ---
Operative Report DATE OF SURGERY: 12/03/18 Operative Report: The risks, benefits and alternatives of the procedure including the risk of bleeding, perforation requiring surgery have been explained to the patient in detail and informed consent has been obtained. Patient is placed in the left, lateral decubital position. Timeout was called. Propofol medication is administered. Rectal examination is done which did not reveal any masses, tears or fissures. An Olympus videoscope was introduced into the patient's rectum. The scope was then carefully advanced all the way to the cecum. The cecum was identified by the usual anatomical landmarks including the ileocecal valve as well as the appendiceal office. Photodocumentation was obtained. The scope was then sequentially pulled back via the various segments of the colon including the ascending colon, hepatic flexure, transverse colon, splenic flexure, desc ending colon and finally into the rectosigmoid portions of the colon. Retroflexion maneuvers performed. The risks benefits and alternatives of the procedure explained to the patient in detail and informed consent is obtained.A GIF Olympus video scope was inserted into the patient's mouth and hypopharynx, the esophagus is identified intubated and insufflated, the scope was then advanced through the esophagus stomach and duodenum, retroflexion maneuver is done ,the esophagus stomach and first and second portions of the duodenum examined. 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 This likely could represent the source of the patient's GI bleed. Gastritis status post biopsy rule out Helicobacter pylori. Duodenitis status post biopsy. Hiatal hernia. Diverticulosis without any evidence of diverticulitis. Internal hemorrhoids. Mild right colon inflammation status post biopsy OPERATION: Colonoscopy with biopsy. EGD with ablation using argon plasma seafood process worker ERBE. EGD with biopsy SURGEON: CECILIA ROLDAN ANESTHESIA: LMAC TISSUE REMOVED OR ALTERED: As noted above. COMPLICATIONS: None. ESTIMATED BLOOD LOSS: None. INTRAOPERATIVE FINDINGS: As noted above. PROCEDURE: Patient tolerated the procedure well. No immediate postprocedure complications are noted. Patient discharged in good condition. Discharge date 12/03/2018. Discharge diet: Regular. Discharge activity: Regular. 2 to 3-week follow-up to discuss findings. Patient is instructed to call the office or proceed to the emergency room should there be any further problems or questions. Wait on the pathology.
== END 2018-12-03 12:40 | disposition home or self-care (01) ==
LOC: END 09:32
PROVIDERS: ATTEND Internal Medicine Gastroenterology
DX: K92.1 Melena (principal); D50.0 Iron deficiency anemia secondary to blood loss (chronic); R63.4 Abnormal weight loss; Z68.25 Body mass index [BMI] 25.0-25.9, adult; K29.50 Unspecified chronic gastritis without bleeding; K29.80 Duodenitis without bleeding; K64.8 Other hemorrhoids; K44.9 Diaphragmatic hernia without obstruction or gangrene; K57.30 Diverticulosis of large intestine without perforation or abscess without bleeding; K52.9 Noninfective gastroenteritis and colitis, unspecified; Q27.33 Arteriovenous malformation of digestive system vessel
CPT/HCPCS: 43270; 43239; 45380; 88342 ×2; 88305 ×2; J2704

== ENCOUNTER → 2018-12-05 | Outpatient (CLI) | payer MEDICARE, OTHER ==
[2018-12-05 13:56] LABS: ABSOLUTE BASOPHILS # (AUTO) 0.1 10^3/uL (0.0-0.2); ABSOLUTE EOSINOPHILS # (AUTO) 0.1 10^3/uL (0.0-0.6); ABSOLUTE MONOCYTES (AUTO) 1.1 10^3/uL (0.1-1.4); BASOPHILS % (AUTO) 0.8 % (0-2); EOSINOPHILS % (AUTO) 1.5 % (0-6); LYMPHOCYTES % (AUTO) 13.7 % (13-45); MEAN CORPUSCULAR HEMOGLOBIN 33.2 pg (27.0-33.4); MEAN CORPUSCULAR HGB CONC 33.4 g/dL (32.0-36.0); MEAN CORPUSCULAR VOLUME 100 fl (80-97); MONOCYTES % (AUTO) 14.6 % (3-13); PLATELET COUNT 256 10^3/uL (150-450); RED BLOOD COUNT 2.31 10^6/uL (3.72-5.28); RED CELL DISTRIBUTION WIDTH 16.9 % (11.5-14.0); SEGMENTED NEUTROPHILS % (AUTO) 69.4 % (42-78); TOTAL CELLS COUNTED % (AUTO) 100 %; WHITE BLOOD COUNT 7.3 10^3/uL (4.0-10.5)
[2018-12-05 14:16] LABS: ALANINE AMINOTRANSFERASE 30 U/L (9-52); ALBUMIN 3.1 g/dL (3.5-5.0); ALKALINE PHOSPHATASE 90 U/L (38-126); ANION GAP 9 (5-19); ASPARTATE AMINO TRANSFERASE 41 U/L (14-36); BILIRUBIN,DIRECT 0.2 mg/dL (0.0-0.4); BILIRUBIN,TOTAL 0.2 mg/dL (0.2-1.3); BLOOD UREA NITROGEN 26 mg/dL (7-20); CALCIUM 9.6 mg/dL (8.4-10.2); CARBON DIOXIDE 24 mmol/L (22-30); CHLORIDE 106 mmol/L (98-107); GLUCOSE 89 mg/dL (75-110); POTASSIUM 5.1 mmol/L (3.6-5.0); SODIUM 139.4 mmol/L (137-145); TOTAL PROTEIN 6.1 g/dL (6.3-8.2)
[2018-12-05 15:21] LABS: HEMOGLOBIN 7.7 g/dL (12.0-15.5)
== END ==
LOC: OD 12:20
PROVIDERS: ATTEND Internal Medicine Nephrology
DX: I12.9 Hypertensive chronic kidney disease with stage 1 through stage 4 chronic kidney disease, or unspecified chronic kidney disease (principal); N18.4 Chronic kidney disease, stage 4 (severe); E83.42 Hypomagnesemia
CPT/HCPCS: 36415; 80053; 83735; 85025

== ENCOUNTER 2018-12-06 10:11 | Emergency (ER) | payer MEDICARE, OTHER ==
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
[2018-12-06] MEDS ORDERED: ACETAMINOPHEN 325 MG TABLET PO ONE (11:37)
[2018-12-06] MEDS ORDERED: ONDANSETRON HCL INJ/PF 4 MG/2 ML SDV IV ONE (13:23)
[2018-12-06 14:18] LABS: ABSOLUTE EOSINOPHILS # (AUTO) 0.1 10^3/uL (0.0-0.6); ABSOLUTE LYMPHOCYTES (AUTO) 0.8 10^3/uL (0.5-4.7); ABSOLUTE MONOCYTES (AUTO) 0.9 10^3/uL (0.1-1.4); ABSOLUTE NEUT (AUTO) 5.1 10^3/uL (1.7-8.2); BASOPHILS % (AUTO) 0.6 % (0-2); EOSINOPHILS % (AUTO) 1.4 % (0-6); HEMATOCRIT 22.1 % (36.0-47.0); LYMPHOCYTES % (AUTO) 11.2 % (13-45); MEAN CORPUSCULAR HEMOGLOBIN 33.2 pg (27.0-33.4); MEAN CORPUSCULAR HGB CONC 33.3 g/dL (32.0-36.0); MEAN CORPUSCULAR VOLUME 100 fl (80-97); MONOCYTES % (AUTO) 12.5 % (3-13); PLATELET COUNT 222 10^3/uL (150-450); RED BLOOD COUNT 2.23 10^6/uL (3.72-5.28); RED CELL DISTRIBUTION WIDTH 16.8 % (11.5-14.0); SEGMENTED NEUTROPHILS % (AUTO) 74.3 % (42-78); TOTAL CELLS COUNTED % (AUTO) 100 %; WHITE BLOOD COUNT 6.9 10^3/uL (4.0-10.5)
[2018-12-06 14:20] LABS: HEMOGLOBIN 7.4 g/dL (12.0-15.5)
[2018-12-06 14:33] LABS: PARTIAL THROMBOPLASTIN TIME 35.9 SEC (23.5-35.8); PROTHROMBIN TIME 15.8 SEC (11.4-15.4)
[2018-12-06 14:42] LABS: ALANINE AMINOTRANSFERASE 25 U/L (9-52); ALBUMIN 2.9 g/dL (3.5-5.0); ALKALINE PHOSPHATASE 85 U/L (38-126); ANION GAP 11 (5-19); ASPARTATE AMINO TRANSFERASE 34 U/L (14-36); BILIRUBIN,DIRECT 0.2 mg/dL (0.0-0.4); BILIRUBIN,TOTAL 0.2 mg/dL (0.2-1.3); BLOOD UREA NITROGEN 29 mg/dL (7-20); CALCIUM 9.5 mg/dL (8.4-10.2); CARBON DIOXIDE 24 mmol/L (22-30); CHLORIDE 105 mmol/L (98-107); GLUCOSE 87 mg/dL (75-110); POTASSIUM 4.7 mmol/L (3.6-5.0); SODIUM 139.9 mmol/L (137-145); TOTAL PROTEIN 5.9 g/dL (6.3-8.2)
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
[2018-12-06] MEDS ORDERED: NORMAL SALINE 250 ML IV PRN (16:26)
[2018-12-06] MEDS ORDERED: HEPARIN SOD (PORCINE) 1,000 UNIT/ML 10 ML VIAL IV ONE (20:51)
[2018-12-06 21:13] VITALS: BP 141/78
== END 2018-12-06 21:14 | disposition home or self-care (01) ==
LOC: ER 10:11
DX: D64.9 Anemia, unspecified (principal); C34.90 Malignant neoplasm of unspecified part of unspecified bronchus or lung; E78.00 Pure hypercholesterolemia, unspecified; I10 Essential (primary) hypertension; I25.2 Old myocardial infarction; Z88.0 Allergy status to penicillin
CPT/HCPCS: 36591; 99283; 96374; 86900; 86901; 36415; 36430; 86850; 85025; 85610; 85730; 80053; 86920; P9016; A9270; J1644; J2405

== ENCOUNTER 2018-12-10 17:12 | Emergency (ER) | payer MEDICARE, OTHER ==
[2018-12-10] MEDS ORDERED: ONDANSETRON HCL INJ/PF 4 MG/2 ML SDV IV ONE (17:39)
[2018-12-10] MEDS ORDERED: NORMAL SALINE 1000 ML 1,000 ML IV ONE (17:39)
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
[2018-12-10 18:16] LABS: ABSOLUTE EOSINOPHILS # (AUTO) 0.1 10^3/uL (0.0-0.6); ABSOLUTE LYMPHOCYTES (AUTO) 0.7 10^3/uL (0.5-4.7); ABSOLUTE MONOCYTES (AUTO) 1.1 10^3/uL (0.1-1.4); ABSOLUTE NEUT (AUTO) 8.3 10^3/uL (1.7-8.2); BASOPHILS % (AUTO) 0.4 % (0-2); EOSINOPHILS % (AUTO) 0.8 % (0-6); HEMATOCRIT 30.3 % (36.0-47.0); LYMPHOCYTES % (AUTO) 7.2 % (13-45); MEAN CORPUSCULAR HGB CONC 33.1 g/dL (32.0-36.0); MEAN CORPUSCULAR VOLUME 97 fl (80-97); MONOCYTES % (AUTO) 10.4 % (3-13); PLATELET COUNT 244 10^3/uL (150-450); RED BLOOD COUNT 3.14 10^6/uL (3.72-5.28); RED CELL DISTRIBUTION WIDTH 17.8 % (11.5-14.0); SEGMENTED NEUTROPHILS % (AUTO) 81.2 % (42-78); TOTAL CELLS COUNTED % (AUTO) 100 %; WHITE BLOOD COUNT 10.2 10^3/uL (4.0-10.5)
[2018-12-10] MEDS ORDERED: MORPHINE SULFATE 10 MG/ML INJ IV ONE (18:22)
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
[2018-12-10 18:33] LABS: ALANINE AMINOTRANSFERASE 24 U/L (9-52); ALBUMIN 3.5 g/dL (3.5-5.0); ALKALINE PHOSPHATASE 110 U/L (38-126); ANION GAP 12 (5-19); ASPARTATE AMINO TRANSFERASE 32 U/L (14-36); BILIRUBIN,DIRECT 0.3 mg/dL (0.0-0.4); BILIRUBIN,TOTAL 0.4 mg/dL (0.2-1.3); BLOOD UREA NITROGEN 18 mg/dL (7-20); CALCIUM 9.8 mg/dL (8.4-10.2); CARBON DIOXIDE 23 mmol/L (22-30); CHLORIDE 106 mmol/L (98-107); GLUCOSE 101 mg/dL (75-110); LIPASE 198.6 U/L (23-300); POTASSIUM 3.9 mmol/L (3.6-5.0)
[2018-12-10 19:33] LABS: INTERNATIONAL RATION (INR) 1.15; PROTHROMBIN TIME 15.3 SEC (11.4-15.4)
[2018-12-10 19:34] LABS: PARTIAL THROMBOPLASTIN TIME 44.3 SEC (23.5-35.8)
--- NOTE | 2018-12-10 19:37 | RADIOLOGY REPORT (SQ) ---
EXAM DESCRIPTION: CHEST SINGLE VIEW COMPLETED DATE/TIME: 12/10/2018 7:29 pm REASON FOR STUDY: chest pain COMPARISON: 10/29/2018 EXAM PARAMETERS: NUMBER OF VIEWS: One view. TECHNIQUE: Single frontal radiographic view of the chest acquired. RADIATION DOSE: NA LIMITATIONS: None. FINDINGS: LUNGS AND PLEURA: Right pleural effusion. Subsegmental atelectasis in the right base. MEDIASTINUM AND HILAR STRUCTURES: No masses. Contour normal. HEART AND VASCULAR STRUCTURES: Heart size indeterminate. No pulmonary edema. BONES: No acute findings. HARDWARE: Injection port on the left. OTHER: No other significant finding. IMPRESSION: Right pleural effusion. TECHNICAL DOCUMENTATION: JOB ID: [id number] [employer]- All Rights Reserved Reading location - IP/workstation name: [email or web address]
[2018-12-10] MEDS ORDERED: HYDROMORPHONE HCL INJ/PF 2 MG/ML AMPULE IV ONE (20:32)
[2018-12-10 20:39] LABS: APPEARANCE,URINE CLEAR; BILIRUBIN,URINE NEGATIVE (NEGATIVE); COLOR,URINE YELLOW; GLUCOSE, URINE NEGATIVE (NEGATIVE); KETONES,URINE TRACE mg/dL (NEGATIVE); LEUKOCYTE ESTERASE,URINE NEGATIVE (NEGATIVE); NITRITE,URINE NEGATIVE (NEGATIVE); PROTEIN,URINE 30 mg/dL (NEGATIVE); URINE SPECIFIC GRAVITY 1.011; UROBILINOGEN,URINE NEGATIVE mg/dL (<2.0)
[2018-12-10] MEDS ORDERED: DIPHENHYDRAMINE HCL 50 MG/ML VIAL IV ONE (20:40)
[2018-12-10] MEDS ORDERED: METOCLOPRAMIDE HCL INJ/PF 10 MG/2 ML SDV IV ONE (20:40)
[2018-12-10 22:15] VITALS: BP 164/84
== END 2018-12-10 22:35 | disposition home or self-care (01) ==
LOC: ER 17:12
DX: K29.00 Acute gastritis without bleeding (principal); R11.2 Nausea with vomiting, unspecified; R10.10 Upper abdominal pain, unspecified; J90 Pleural effusion, not elsewhere classified; I10 Essential (primary) hypertension; Z87.01 Personal history of pneumonia (recurrent); Z85.118 Personal history of other malignant neoplasm of bronchus and lung; Z92.21 Personal history of antineoplastic chemotherapy; Z87.19 Personal history of other diseases of the digestive system; Z88.8 Allergy status to other drugs, medicaments and biological substances; Z88.0 Allergy status to penicillin; Z88.7 Allergy status to serum and vaccine
CPT/HCPCS: 36591; 99284; 96361; 96374; 96375; 36415; 87086; 83690; 85025; 85610; 85730; 87088; 80053; 81001; 87186; 71045; J1200; J2765; J2270; J1170; J2405; J7030; J1642

== ENCOUNTER 2018-12-11 11:11 | Emergency (ER) | payer MEDICARE, OTHER ==
--- NOTE | 2018-12-11 11:30 | ER Document Report ---
ED NIH Stroke Scale - NIH Stroke Scale When completed:: Before Alteplase *: 1. NIH scale should be completed with appropriate accompanying assessment tools. *: 2. The NIH should reflect what the patient is capable of doing and should not be coached by the clinician. 1a. Level of Consciousness: 0=Alert;keenly responsive -: 1=Drowsy -: 2=Obtunded -: 3=Coma/unresponsive or reflex to noxious stimuli. 1a. Responses: 1 1b. Orientation Questions: a. What month is it? -: b. How old are you? -: 0=Answers both questions correctly. -: 1=Answers one question correctly or patient is intubated or has orotracheal trauma. -: 2=Answers neither question correctly. 1b. Responses: 2 1c. Response to commands: a. Open and close eyes? -: b. Special Education Administrator and release hand? -: Credit is given despite weakness. Demonstration of task is permitted. Substitute command if hands cannot be used. -: 0=Performs both tasks correctly -: 1=Performs one task correctly -: 2=Performs neither task correctly 1c. Responses: 1 2. Gaze: Establish eye contact and instruct patient to "Follow my finger" -: 0=Normal -: 1=Partial gaze palsy. Gaze is abnormal in one or both eyes, but where forced deviation or total gaze paresis is not present. -: 2=Forced deviation or total gaze paresis. 2. Responses: 1 3. Visual Chavez: Sees fingers in all four quadrants. -: 0=No visual loss. -: 1=Partial hemianopsia. -: 2=Complete hemianopsia. -: 3=Bilateral hemianopsia (including Cortical blindness) 4. Facial Movement: Instruct patient to: -: a. Show me your teeth -: b. Raise your eyebrows -: c. Close your eyes -: d. Smile -: 0=Normal symmetrical movement -: 1=Minor paralysis (flattened nasolabial fold, asymmetry on smiling). -: 2=Partial paralysis (total or near total paralysis of lower face). -: 3=Complete paralysis of upper and lower face 4. Responses: 2 5. Motor functions (left arm): Alternate sides and extend each arm with palms do wn (90 degrees if sitting or 45 degrees for supine). -: 0=No drift;limb holds for full 10 seconds. -: 1=Drift; limb holds but drifts down before full 10 seconds, but does not hit bed. -: 2=Some effort against gravity; limb cannot get to or maintain position. -: 3=No effort against gravity; limb falls. -: 4=No movement. -: UN=Amputation, joint fusion, explain in comments. 5. Responses (left arm): 2 5. Motor Functions (right arm): Alternate sides and extend each arm with palms down (90 degrees if sitting or 45 degrees for supine). -: 0=No drift;limb holds for full 10 seconds. -: 1=Drift; limb holds but drifts down before full 10 seconds, but does not hit bed. -: 2=Some effort against gravity; limb cannot get to or maintain position. -: 3=No effort against gravity; limb falls. -: 4=No movement. -: UN=Amputation, joint fusion, explain in comments. 5. Responses (right arm): 2 6. Motor Functions (left leg): With patient lying supine, alternate sides and extend each leg (30 degrees always while supine). -: 0=No drift, leg holds position for full 5 seconds -: 1=Drift; leg falls before full 5 seconds but does not hit bed. -: 2=Some effort against gravity, leg falls to bed but some effort against gravity. -: 3=No effort against gravity, leg falls to bed immediately. -: 4=No movement. -: UN=Amputation, joint fusion; explain in comments. 6. Motor Functions (right leg): With patient lying supine, alternate sides and extend each leg (30 degrees always while supine). -: 0=No drift, leg holds position for full 5 seconds -: 1=Drift; leg falls before full 5 seconds but does not hit bed. -: 2=Some effort against gravity, leg falls to bed but some effort against gravity. -: 3=No effort against gravity, leg falls to bed immediately. -: 4=No movement. -: UN=Amputation, joint fusion; explain in comments. 6. Responses (right leg): 3 7. Limb Ataxia: With eyes open instruct patient to: -: a. "Touch your finger to your nose". -: b. "Touch your heel to your hernandez" -: 0=Absent -: 1=Present in one limb. -: 2=Present in two limbs. -: UN=Amputation or joint fusion; explain in comments. 7. Responses: 0 8. Sensory: Test sensation using pinprick or noxious stimuli. Test as many body parts as possible. -: 0=Normal;no sensory loss -: 1=Mile to moderate sensory loss (patient feels pin prick but is less sharp on affected side). -: 2=Severe or total sensory loss. 8. Responses: 1 9. Best Language: Instruct patient to: -: a. "Describe what you see in this picture." -: b. "Name the items in this picture." -: c. "Read these sentences." -: 0=No aphasia, normal -: 1=Mild to moderate aphasia. -: 2=Severe aphasia -: 3=Mute, global aphasia, no usable speech or auditory comprehension. 9. Responses: 3 10. Articulation, Dysarthia: Instruct patient to: -: "Read these words" or "Repeat these words" -: 0=Normal -: 1=Mild to moderate; patient may slur some words but can be understood without difficulty. -: 2=Severe; patients speech so slurred as to be unintelligible in the absence of dysphasia. -: UN=Intubated or other physical barrier, explain in comments. 10. Responses: 2 11. Extinction or inattention: 0=No abnormality -: 1= Visual, tactile, auditory, spatial, or personal inattention or extinction to bilateral simulation in one or the sensory modalities. -: 2=Profound dahiana-inattention or dahiana-inattention to more than one modality; does not recognize own hand. 11. Responses: 1 Total Score: 21
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
--- NOTE | 2018-12-11 11:49 | RADIOLOGY REPORT (SQ) ---
EXAM DESCRIPTION: CT HEAD WITHOUT COMPLETED DATE/TIME: 12/11/2018 11:27 am REASON FOR STUDY: Altered Mental Status COMPARISON: CT brain 10/29/2018, 09/23/2018, 08/01/2009 MRI brain 01/29/2018 TECHNIQUE: Axial images acquired through the brain without intravenous contrast. Images reviewed wi th bone, brain and subdural windows. Additional sagittal and coronal reconstructions were generated. Images stored on PACS. All CT scanners at this facility use dose modulation, iterative reconstruction, and/or weight based d osing when appropriate to reduce radiation dose to as low as reasonably achievable (ALARA). [facility]: Dose Right [facility]: CareDose [facility]: Dose Right [facility]: Teradose 4D [facility]: Smart Virtual Bridges RADIATION DOSE: CT Rad equipment meets quality standard of care and radiation dose reduction techniq ues were employed. CTDIvol: 53.2 mGy. DLP: 1017 mGy-cm. mGy. LIMITATIONS: Streak artifact from metallic left eyelid prosthesis FINDINGS: VENTRICLES: Normal size and contour. CEREBRUM: Old encephalomalacia along the left frontal lobe, chronic and stable over the series of exa ms. There is now a vague area of low attenuation in the left occipital lobe along the white matter. Question vasogenic edema from metastatic disease versus subacute occipital infarct. This finding was discussed with Dr. Merchant, 1128 hours 12/11/2018. No CT evidence of acute large territory ischemic change, acute intracranial hemorrhage, mass effect, or midline shift. There is moderate small vessel chronic hemispheric white matter disease in the bif rontal and biparietal regions. CEREBELLUM: No masses. No hemorrhage. No alteration of density. No evidence for acute infarction. EXTRAAXIAL SPACES: No fluid collections. No masses. ORBITS AND GLOBE: Metallic left eyelid prosthesis. Old postsurgical changes over the midline frontal bone with old healed left-sided facial fractures CALVARIUM: No fracture. PARANASAL SINUSES: No fluid or mucosal thickening. SOFT TISSUES: No mass or hematoma. OTHER: No other significant finding. IMPRESSION: Since prior CT brain 10/29/2018, patient has developed low attenuation in the left occipi mau lobe white matter, which could represent an early subacute infarct or edema related to a metastat ic lesion. This finding was discussed with Dr. Merchant, 1128 hours 12/11/2018 EVIDENCE OF ACUTE STROKE: Question subacute infarct versus vasogenic edema left occipital lobe COMMENT: Pertinent findings on the imaging study reported as a CRITICAL RESULT to Dr. Merchant [id number] hours on 12/11/2018. Category of Critical Result: CT code stroke Quality ID # [id number]: Final reports with documentation of one or more dose reduction techniques (e.g., Au tomated exposure control, adjustment of the mA and/or kV according to patient size, use of iterative reconstruction technique) TECHNICAL DOCUMENTATION: JOB ID: [id number] 1992 [employer]- All Rights Reserved Reading location - IP/workstation name: [email or web address]
[2018-12-11] MEDS ORDERED: DEXAMETHASONE SOD PHOS INJ 10 MG/1 ML VIAL PO ONE (11:50)
[2018-12-11 11:53] LABS: HEMATOCRIT 31.3 % (36.0-47.0); HEMOGLOBIN 10.2 g/dL (12.0-15.5); MEAN CORPUSCULAR HEMOGLOBIN 31.6 pg (27.0-33.4); MEAN CORPUSCULAR HGB CONC 32.6 g/dL (32.0-36.0); MEAN CORPUSCULAR VOLUME 97 fl (80-97); PLATELET COUNT 236 10^3/uL (150-450); RED BLOOD COUNT 3.23 10^6/uL (3.72-5.28); RED CELL DISTRIBUTION WIDTH 17.7 % (11.5-14.0); WHITE BLOOD COUNT 12.3 10^3/uL (4.0-10.5)
[2018-12-11 11:56] LABS: INTERNATIONAL RATION (INR) 1.27; PROTHROMBIN TIME 16.6 SEC (11.4-15.4)
[2018-12-11 11:57] LABS: PARTIAL THROMBOPLASTIN TIME 38.7 SEC (23.5-35.8)
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
[2018-12-11] MEDS ORDERED: ASPIRIN 300 MG SUPP, RECTAL PR ONE (12:00)
[2018-12-11] MEDS ORDERED: MORPHINE SULFATE 10 MG/ML INJ IV ONE ×2 (12:05→13:34)
--- NOTE | 2018-12-11 12:09 | RADIOLOGY REPORT (SQ) ---
EXAM DESCRIPTION: CHEST SINGLE VIEW COMPLETED DATE/TIME: 12/11/2018 11:29 am REASON FOR STUDY: bed 19 stroke alert COMPARISON: 12/10/2018. EXAM PARAMETERS: NUMBER OF VIEWS: One view. TECHNIQUE: Single frontal radiographic view of the chest acquired. RADIATION DOSE: NA LIMITATIONS: None. FINDINGS: LUNGS AND PLEURA: Persistent prominent right pleural effusion. Right basilar infiltrate o r atelectasis. Left lung clear. MEDIASTINUM AND HILAR STRUCTURES: No masses. Contour normal. HEART AND VASCULAR STRUCTURES: The heart is normal with aortic atherosclerosis. BONES: No acute findings. HARDWARE: Port-A-Cath tip at proximal SVC. OTHER: No other significant finding. IMPRESSION: Right basilar atelectasis and right pleural effusion. TECHNICAL DOCUMENTATION: JOB ID: [id number] 2010 [email or web address]- All Rights Reserved Reading location - IP/workstation name: [email or web address]
[2018-12-11 12:11] LABS: ABSOLUTE LYMPHOCYTES# (MANUAL) 0.6 10^3/uL (0.5-4.7); ABSOLUTE MONOCYTES # (MANUAL) 0.7 10^3/uL (0.1-1.4); ABSOLUTE NEUTROPHILS# (MANUAL) 10.8 10^3/uL (1.7-8.2); BASOPHILS % (MANUAL) 1 % (0-2); EOSINOPHILS % (MANUAL) 0 % (0-6); LYMPHOCYTES % (MANUAL) 5 % (13-45); MONOCYTES % (MANUAL) 6 % (3-13); SEGMENTED NEUTROPHILS % (MAN) 88 % (42-78); TOTAL CELLS COUNTED 100
[2018-12-11 12:12] LABS: ANISOCYTOSIS 1+; POIKILOCYTOSIS SLIGHT; POLYCHROMASIA SLIGHT; TEAR DROP CELLS SLIGHT; TOXIC VACUOLATION PRESENT
[2018-12-11 12:13] LABS: PLATELET COMMENT ADEQUATE
[2018-12-11 12:31] LABS: ALANINE AMINOTRANSFERASE 26 U/L (9-52); ALBUMIN 3.3 g/dL (3.5-5.0); ALKALINE PHOSPHATASE 91 U/L (38-126); ANION GAP 10 (5-19); ASPARTATE AMINO TRANSFERASE 32 U/L (14-36); BILIRUBIN,DIRECT 0.5 mg/dL (0.0-0.4); BILIRUBIN,TOTAL 0.6 mg/dL (0.2-1.3); BLOOD UREA NITROGEN 18 mg/dL (7-20); CALCIUM 9.3 mg/dL (8.4-10.2); CARBON DIOXIDE 25 mmol/L (22-30); CHLORIDE 105 mmol/L (98-107); CREATINE KINASE 34 U/L (30-135); GLUCOSE 122 mg/dL (75-110); POTASSIUM 4.5 mmol/L (3.6-5.0); SODIUM 140.3 mmol/L (137-145); TOTAL PROTEIN 6.4 g/dL (6.3-8.2)
[2018-12-11 12:42] LABS: CREATINE KINASE MB 0.72 ng/mL (<4.55); TROPONIN I 0.03 ng/mL
--- NOTE | 2018-12-11 13:11 | RADIOLOGY REPORT (SQ) ---
EXAM DESCRIPTION: CT ABD/PELVIS WITH IV ONLY COMPLETED DATE/TIME: 12/11/2018 12:47 pm REASON FOR STUDY: 19; Abominal pain and vomiting COMPARISON: 10/29/2018 TECHNIQUE: CT scan of the abdomen and pelvis performed using helical scanning technique with dynamic intravenous contrast injection. No oral contrast. Images reviewed with lung, soft tissue, and bone windows. Reconstructed coronal and sagittal MPR images reviewed. Delayed images for evaluation of the urinary system also acquired. All images stored on PACS. All CT scanners at this facility use dose modulation, iterative reconstruction, and/or weight based d osing when appropriate to reduce radiation dose to as low as reasonably achievable (ALARA). [facility]: Dose Right [facility]: CareDose [facility]: Dose Right [facility]: Teradose 4D [facility]: Dealer Ignition CONTRAST TYPE AND DOSE: contrast/concentration: Isovue 350.00 mg/ml; Total Contrast Delivered: 73.0 ml; Total Saline Delivered: 66.0 ml RENAL FUNCTION: Creatinine 1.26 RADIATION DOSE: CT Rad equipment meets quality standard of care and radiation dose reduction techniq ues were employed. CTDIvol: 6.6 - 9.3 mGy. DLP: 925 mGy-cm.. LIMITATIONS: None. FINDINGS: LOWER CHEST: Large loculated right pleural effusion contains a fluid fluid level.c LIVER: Normal size. No masses. No dilated ducts. SPLEEN: Normal size. No focal lesions. PANCREAS: No masses. No significant calcifications. No adjacent inflammation or peripancreatic fluid collections. Pancreatic duct not dilated. GALLBLADDER: No identified stones by CT criteria. No inflammatory changes to suggest cholecystitis. ADRENAL GLANDS: No significant masses or asymmetry. RIGHT KIDNEY AND URETER: No solid masses. No significant calcifications. No hydronephrosis or hyd roureter. LEFT KIDNEY AND URETER: No solid masses. No significant calcifications. No hydronephrosis or hydr oureter. AORTA AND VESSELS: No aneurysm. No dissection. Renal arteries, SMA, celiac without stenosis. RETROPERITONEUM: No retroperitoneal adenopathy, hemorrhage or masses. BOWEL AND PERITONEAL CAVITY: No masses or inflammatory changes. No free fluid or peritoneal masses. APPENDIX: Normal. PELVIS: Urinary bladder is normal. There is an unusual pattern of opacification in the pelvis, likel y some a bladder support device. ABDOMINAL WALL: No masses. No hernias. BONES: No significant or acute findings. OTHER: No other significant finding. IMPRESSION: Large loculated right pleural effusion contains a fluid fluid level. Bladder support device TECHNICAL DOCUMENTATION: JOB ID: [id number] Quality ID # [id number]: Final reports with documentation of one or more dose reduction techniques (e.g., Au tomated exposure control, adjustment of the mA and/or kV according to patient size, use of iterative reconstruction technique) 2010 [employer]- All Rights Reserved Reading location - IP/workstation name: [email or web address]
[2018-12-11] MEDS ORDERED: LABETALOL HCL INJ 20 MG/4 ML DISP.SYRIN IV ONE (13:33)
[2018-12-11] MEDS ORDERED: LEVETIRACETAM 1000 MG/NACL-ISO 1,000 MG/100 ML RTUPB IV ONE (13:35)
[2018-12-11] MEDS ORDERED: HYDRALAZINE HCL INJ/PF 20 MG/1 ML SDV IV ONE (14:08)
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
[2018-12-11] MEDS ORDERED: NICARDIPINE HCL RTU, ISO-OS 20 MG/200 ML RTUINJ IV PRN (14:51)
[2018-12-11 15:05] LABS: APPEARANCE,URINE SLIGHTLY-CLOUDY; BILIRUBIN,URINE NEGATIVE (NEGATIVE); COLOR,URINE YELLOW; GLUCOSE, URINE NEGATIVE (NEGATIVE); KETONES,URINE TRACE mg/dL (NEGATIVE); LEUKOCYTE ESTERASE,URINE NEGATIVE (NEGATIVE); NITRITE,URINE NEGATIVE (NEGATIVE); PROTEIN,URINE 30 mg/dL (NEGATIVE); UROBILINOGEN,URINE NEGATIVE mg/dL (<2.0)
[2018-12-11] MEDS ORDERED: LORAZEPAM INJ 2 MG/1 ML VIAL IV ONE (18:03)
--- NOTE | 2018-12-11 18:36 | EKG REPORT ---
SEVERITY:- OTHERWISE NORMAL ECG - SINUS TACHYCARDIA : Confirmed by: Terrie Johns MD 11-Dec-2018 18:35:41
[2018-12-11 18:49] VITALS: BP 155/70
== END 2018-12-11 19:45 | disposition short-term general hospital (02) ==
LOC: ER 11:11
DX: I16.0 Hypertensive urgency (principal); R41.0 Disorientation, unspecified; J90 Pleural effusion, not elsewhere classified; R11.10 Vomiting, unspecified; I10 Essential (primary) hypertension; E78.00 Pure hypercholesterolemia, unspecified; Z88.0 Allergy status to penicillin; Z85.118 Personal history of other malignant neoplasm of bronchus and lung; Z85.828 Personal history of other malignant neoplasm of skin; I25.2 Old myocardial infarction
CPT/HCPCS: 93005; 96376; 99291; 99292; 96375; 96365; 96366; 96367; 36415; 82553; 82550; 83690; 85025; 85610; 85730; 80053; 81001; 84484; 70553; 71045; 70450; 74177; 93010; A9576; J0360; J2270; J2060; J3490; J1100; J1953